=== PATIENT | female | born 1995 | race Caucasian/White ===

== ENCOUNTER 2016-03-17 23:00 | Emergency (ER) | payer OTHER ==
[2016-03-18] MEDS ORDERED: NS 0.9% 1000 ML* 1,000 ML IV ONE (00:04)
[2016-03-18] MEDS ORDERED: Ondansetron INJ* 2 MG/ML VIAL IV ONE (00:04)
[2016-03-18] MEDS ORDERED: Morphine INJ* 4 MG/ML 1 ML CARPUJECT IV ONE (00:04)
[2016-03-18] MEDS ORDERED: Acetaminophen TAB* 325 MG PO ONE (00:06)
[2016-03-18 00:30] LABS: Hematocrit 38 % (35-47); Hemoglobin 12.8 g/dl (12.0-16.0); Mean Corpuscular HGB Conc 34 g/dl (31-36); Mean Corpuscular Hemoglobin 30 pg (27-31); Mean Corpuscular Volume 87 fL (80-97); Mean Platelet Volume 10 um3 (7.4-10.4); Red Blood Count 4.36 10^6/ul (4.0-5.4); Red Cell Distribution Width 13 % (10.5-15); White Blood Count 14.6 10^3/ul (3.5-10.8)
[2016-03-18 00:35] LABS: ALT 9 U/L (7-52); AST 15 U/L (13-39); Albumin 4.3 g/dL (3.2-5.2); Alkaline Phosphatase 107 U/L (34-104); Anion Gap 8 mmol/L (2-11); BUN/Creatinine Ratio 13.4 (8-20); Blood Urea Nitrogen 11 mg/dL (6-24); CO2 Carbon Dioxide 23 mmol/L (22-32); Calcium 9.2 mg/dL (8.6-10.3); Chloride 100 mmol/L (101-111); EGFR African American 115.5 (>60); EGFR Non-African American 89.8 (>60); Globulin 3.4 g/dL (2-4); Glucose 104 mg/dL (70-100); Lipase < 10 U/L (11.0-82.0); Potassium 3.5 mmol/L (3.5-5.0); Sodium 131 mmol/L (133-145); Total Protein 7.7 g/dL (6.4-8.9)
[2016-03-18 00:36] LABS: Urine Bacteria 1+ (Absent); Urine Bilirubin Negative (Negative); Urine Glucose Negative (Negative); Urine Nitrite Positive (Negative)
[2016-03-18] MEDS ORDERED: Iodixanol* (CONTRAST) 320 MG/ML 100 ML SDV IV ONE (01:07)
[2016-03-18] MEDS ORDERED: Levofloxacin TAB* 500 MG PO ONE (03:02)
--- NOTE | 2016-03-18 03:09 | ED ---
Bry Wang Rebecca, scribed for Ayad Barnesuel on 03/17/16 at 2350 . Back Pain - HPI Summary HPI Summary: Pt is a 20 y/o F who presents to ED c/o bilateral flank pain wiht radiation to the abdomen. Pain began gradually 2 weeks ago and has been constant since onset. Pain is characterized as sharp and ranked 7/10. Sx aggravated and alleviated by nothing. Additionally c/o OCASIO, dizziness, malodorous urine, dysuria and fever. Recent Dx of UTI by Urgent Care, prescribed 14 days of Macrobid, which was completed. PMHx recurrent UTIs. No PSHx appy, cholecystectomy. - History of Current Complaint Chief Complaint: EDFlankPain Stated Complaint: PAINFUL URINATION/FLANK PAIN Time Seen by Provider: 03/17/16 23:37 Hx Obtained From: Patient Hx Last Menstrual Period: January 19 Onset/Duration: Gradual Onset, Lasting Weeks - 2 weeks ago Timing: Constant Back Pain Location: Is Discrete @ - bilateral flank, Radiates To - abdomen Severity Initially: Moderate Severity Currently: Moderate Pain Intensity: 7 Pain Scale Used: 0-10 Numeric Character: Sharp Aggravating Symptom(s): Nothing Alleviating Symptom(s): Nothing Associated Signs And Symptoms: Positive: Fever, Other - OCASIO, malodorous urine, dysuria, dizziness - Allergies/Home Medications Allergies/Adverse Reactions: Allergies Allergy/AdvReac Type Severity Reaction Status Date / Time Latex Allergy Rash Verified 02/10/16 18:40 Perfume Allergy Difficulty Verified 02/10/16 18:40 Breathing/Wheezing PMH/Surg Hx/FS Hx/Imm Hx Endocrine/Hematology History: Denies: Hx Diabetes, Hx Thyroid Disease Cardiovascular History: Denies: Hx Congestive Heart Failure, Hx Hypertension Respiratory History: Reports: Hx Asthma - Uses inhaler sometimes once a day, Hx Seasonal Allergies Denies: Hx Chronic Obstructive Pulmonary Disease (COPD) GI History: Reports: Hx Gastroesophageal Reflux Disease - Protonix daily Denies: Hx Ulcer History: Reports: Other Problems/Disorders - Chronic UTI Denies: Hx Renal Disease Psychiatric History: Reports: Hx Anxiety, Hx Eating Disorder - Reports hx anorexia, Hx Depression, Hx Inpatient Treatment, Hx Community Mental Health Tx Denies: Hx Attention Deficit Hyperactivity Disorder, Hx Panic Disorder, Hx Post Traumatic Stress Disorder, Hx Schizophrenia, Hx Bipolar Disorder, Hx Suicide Attempt, Hx of Violent Episodes Against Others, Hx Substance Abuse Infectious Disease History: No Infectious Disease History: Denies: Hx Clostridium Difficile, Hx Hepatitis, Hx Human Immunodeficiency Virus (HIV), Hx of Known/Suspected MRSA, Hx Shingles, Hx Tuberculosis, Hx Known/ Suspected VRE, Hx Known/Suspected VRSA, History Other Infectious Disease, Traveled Outside the [place] in Last 30 Days - Family History Known Family History: Negative: Cardiac Disease, Diabetes Family History: Family history of SLE, multiple sclerosis, temporal lobe epilepsy, Graves' disease, and trigeminal neuralgia in mother in addition to borderline personality disorder. Maternal grandmother suffers from depression, chronic fatigue syndrome, and Marvin's disease. - Social History Alcohol Use: Rare Substance Use Type: Reports: None Smoking Status (MU): Current Some Day Smoker Type: Cigarettes Amount Used/How Often: Stated she smokes approximately 5 cigarettes/month. Length of Time of Smoking/Using Tobacco: A few years Have You Smoked in the Last Year: Yes Review of Systems Positive: Fever Positive: dysuria, flank pain - bilateral flank pain with radiation to the abdomen, other - malodorous urine Neurological: Other - Dizziness Positive: Headache All Other Systems Reviewed And Are Negative: Yes Physical Exam Triage Information Reviewed: Yes Vital Signs On Initial Exam: Initial Vitals Temp Pulse Resp BP Pulse Ox 102.1 F 148 20 111/74 96 03/17/16 23:21 03/17/16 23:21 03/17/16 23:21 03/17/16 23:21 03/17/16 23:21 Vital Signs Reviewed: Yes Appearance: Positive: Well-Appearing, No Pain Distress Skin: Positive: Warm, Skin Color Reflects Adequate Perfusion, Dry Head/Face: Positive: Normal Head/Face Inspection Eyes: Positive: EOMI, BRANT ENT: Positive: Normal ENT inspection Neck: Positive: Supple, Nontender Respiratory/Lung Sounds: Positive: Clear to Auscultation, Breath Sounds Present Cardiovascular: Positive: Pulses are Symmetrical in both Upper and Lower Extremities, Tachycardia Abdomen Description: Positive: Soft. Negative: Nontender - Diffuse abdominal tenderness Bowel Sounds: Positive: Present Musculoskeletal: Positive: Normal, Strength/ROM Intact Neurological: Positive: Normal, Sensory/Motor Intact, Alert, Oriented to Person Place, Time Diagnostics - Vital Signs Vital Signs Temp Pulse Resp BP Pulse Ox 03/17/16 23:21 102.1 F 148 20 111/74 96 - Laboratory Result Diagrams: 03/17/16 00:00 03/17/16 00:00 Lab Statement: Any lab studies that have been ordered have been reviewed, and results considered in the medical decision making process. - Radiology CXR Xray Interpretation: No Acute Changes Radiology Interpretation Completed By: ED Physician - CT CT Abd/Pel CT Interpretation: No Acute Changes CT Interpretation Completed By: Radiologist - Ultrasound No standard instances Ultrasound Interpretation Completed By: Radiologist - Gallbladder US: Normal appearance of the liver, gallbladder, CBD and right kidney. Back Pain Course/Dx - Course Assessment/Plan: Pt is a 20 y/o F who presents to ED with a CC of bilateral flank pain for 2 weeks. Additionally c/o OCASIO, dizziness, malodorous urine, dysuria and fever. Recent Dx and treatment of UTI (2 weeks ago, just finished course of Macrobid). UA reveals 3+ WBC, 3+ RBC, positive H urine nitrate, 1+ urine blood. CXR, US gallbladder and CT Abd/Pel reveal normal results. Pt will be d/c to home with a dx of UTI and hyponatremia with a followup from PCP and a prescription for Levaquin. - Diagnoses Provider Diagnoses: UTI (urinary tract infection), Hyponatremia Discharge - Discharge Plan Condition: Stable Disposition: HOME Prescriptions: Ibuprofen TAB* [Motrin TAB* 600 MG] 600 mg PO Q8H PRN #20 tab PRN Reason: Pain Levofloxacin TAB* [Levaquin TAB*] 500 mg PO DAILY #7 tab Referrals: Stefania rCowder MD [Primary Care Provider] - The documentation as recorded by the Bry morley Rebecca accurately reflects the service I personally performed and the decisions made by Cameron moore Emmanuel. Addendum entered and electronically signed by Megan Mccracken PA 03/20/16 07: 44: ED Addendum Addendum: Patient diagnosed with UTI and placed on levaquin preliminary culture grew >100, 000 citrobacter freundii will wait for final sensitivity.
[2016-03-18 03:21] VITALS: BP 98/67
--- NOTE | 2016-03-18 08:04 | RAD ---
INDICATION: Right upper quadrant pain. COMPARISON: There are no prior studies available for comparison. TECHNIQUE: Multiple real-time images of the right upper quadrant were obtained. FINDINGS: The gallbladder appear normal. No gallbladder wall thickening or pericholecystic fluid is present. No intra or extrahepatic ductal distention is present. The common bile duct measured 0.3 cm in diameter. The liver is normal in size without significant focal abnormality. The pancreas is obscured by overlying bowel gas. The right kidney is normal in size without evidence for hydronephrosis. IMPRESSION: NEGATIVE EXAM.
--- NOTE | 2016-03-18 08:16 | RAD ---
INDICATION: Fever COMPARISON: None TECHNIQUE: PA and lateral views of the chest were obtained. FINDINGS: The heart and mediastinum are normal in size and contour. The lungs are grossly clear. There is no evidence of large pleural effusion. Visualized bones are normal for the patient's age. There is no radiographic evidence of free air beneath the diaphragm IMPRESSION: No radiographic evidence of acute cardiopulmonary disease.
--- NOTE | 2016-03-18 08:26 | RAD ---
CLINICAL HISTORY: Bilateral flank pain and dysuria COMPARISON: Similar CT examination dated December 26, 2014 TECHNIQUE: Contrast enhanced CT examination of the abdomen and pelvis from the lung bases through the initial tuberosities. The patient received 90 mL Visipaque 320 intravenously prior to imaging.The patient received oral contrast as well prior to imaging. FINDINGS: VISUALIZED LUNG BASES: The visualized lung bases are grossly clear. There is no pleural effusion. ABDOMEN AND PELVIS: The liver, spleen, pancreas and adrenal glands are grossly normal in appearance. The gallbladder is normal. The kidneys are normal in appearance without focal mass, calcification or signs of hydronephrosis. The urinary bladder exhibits mild wall thickening up to 7 mm but is also mostly decompressed. No oral contrast has only progressed as far as the distal small bowel which limits evaluation of the distal most portion of the small bowel and the colon. The small and large bowel are not distended. The patient's normal appendix with air in the lumen is identified in the right lower quadrant (coronal image 41). There is no gross retroperitoneal or mesenteric lymphadenopathy. The pelvic viscera is normal in appearance. The abdominal aorta and iliac arteries are normal in course and diameter. There are no sinister bone lesions. IMPRESSION: 1. Questionable appearance of circumferential urinary bladder wall thickening which can be seen in the setting of cystitis. Alternatively, the bladder is incompletely distended and this appearance may simply be the consequence of underdistention. Ultrasound of the urine filled urinary bladder may help better characterize this finding. 2. Otherwise no acute abnormalities of the abdomen or pelvis.
== END 2016-03-18 03:20 | disposition home or self-care (01) ==
LOC: ED 23:00
DX: N39.0 Urinary tract infection, site not specified (principal); E87.1 Hypo-osmolality and hyponatremia; R50.9 Fever, unspecified; R51 Headache; R30.0 Dysuria; Z72.0 Tobacco use; R42 Dizziness and giddiness
CPT/HCPCS: 36415; 71020; 74177; 76705; 80053; 81003; 81015; 83605; 83690; 84702; 85025; 85610; 85730; 87040; 87077; 87086; 87186; 96361; 96374; 96375; 99282; A9270-GY; J2270; J2405; Q9967

== ENCOUNTER 2016-07-23 20:30 | Emergency (ER) | payer OTHER ==
--- NOTE | 2016-07-23 20:43 | UC ---
Complaint Female HPI - HPI Summary HPI Summary: The patient comes in today for: 1. Urinary frequency, strong urine odor (not new, but worse than before): Onset: A couple days ago. Palliative/provocative: Drinking more fluids tends to help. Quality: Dysuria: not present. Region: Severity: 0/10 Time: Constant. Associated symptoms: Cold chills: Present Hobson aches: Present Temperature: 102.3 taken 1-2 hours ago. Urinary urgency: Present. Last UTI treatment: 2-3 months ago. * - History Of Current Complaint Stated Complaint: FEVER URINARY ISSUE Time Seen by Provider: 07/23/16 20:35 Hx Obtained From: Patient Hx Last Menstrual Period: January 19 - Allergies/Home Medications Allergies/Adverse Reactions: Allergies Allergy/AdvReac Type Severity Reaction Status Date / Time Latex Allergy Rash Verified 07/23/16 21:00 Perfume Allergy Difficulty Verified 07/23/16 21:00 Breathing/Wheezing PMH/Surg Hx/FS Hx/Imm Hx Previously Healthy: No Other Endocrine History: No diabetes, or thyroid disease. Other Cardiovascular History: No heart disease or HTN Respiratory History: Asthma Other Respiratory History: No P.E. GI/ History: Gastroesophageal Reflux Other GI/ History: Gastric ulcers about "years and years ago"or kidney failure Other Neurological History: No strokes or seizures. Psychological History: Anxiety, Other - "mood disorder." Other Psychological History: mood disorder Other Cancer History: No cancers Other History Of: Negative For: HIV, Hepatitis B, Hepatitis C, Anticoagulant Therapy - Surgical History Surgical History: None - Family History Known Family History: Positive: Diabetes Negative: Cardiac Disease, Hypertension Family History: Family history of SLE, multiple sclerosis, temporal lobe epilepsy, Graves' disease, and trigeminal neuralgia in mother in addition to borderline personality disorder. Maternal grandmother suffers from depression, chronic fatigue syndrome, and Marvin's disease. - Social History Occupation: Unemployed Lives: Alone Alcohol Use: Rare Substance Use Type: None Smoking Status (MU): Current Some Day Smoker Type: Cigarettes Amount Used/How Often: Stated she smokes approximately 5 cigarettes/month. Length of Time of Smoking/Using Tobacco: A few years Have You Smoked in the Last Year: Yes Household Exposure Type: Cigarettes - Immunization History Most Recent Influenza Vaccination: 2016 Most Recent Tetanus Shot: UTD Most Recent Pneumonia Vaccination: as Vaccination Up to Date: Yes Review of Systems Constitutional: Fever Skin: Negative Eyes: Negative ENT: Negative Respiratory: Negative Cardiovascular: Negative Gastrointestinal: Negative Genitourinary: Frequency, Urgency All Other Systems Reviewed And Are Negative: Yes Physical Exam Triage Information Reviewed: Yes Appearance: Well-Appearing, No Pain Distress, Well-Nourished, Other: Vital Signs Reviewed: Yes Eyes: Positive: Conjunctiva Clear. Negative: Discharge ENT: Positive: Hearing grossly normal. Negative: Pharyngeal erythema, Nasal congestion, Nasal drainage, TM bulging, TM dull, TM red, Tonsillar swelling, Tonsillar exudate Dental: Negative: Gross Decay/Caries @, Dental Fracture @ Neck: Positive: Supple, Nontender, No Lymphadenopathy. Negative: Nuchal Rigidity Respiratory: Positive: Chest non-tender, Lungs clear, No respiratory distress, No accessory muscle use. Negative: Crackles, Wheezing Cardiovascular: Positive: RRR, No Murmur Abdomen Description: Positive: No Organomegaly, Soft, Other: - The abdominal exam was difficult to assess. She stated that she was ticklish, but during the exam she would grimace like the exam hurt. But, when asked if she was in pain while grimacing, she would say that she would not be in pain. But the tender areas were not consistent. She did have some tenderness of the RLQ.. Negative : Nontender, Distended, Guarding Musculoskeletal: Positive: Strength Intact, ROM Intact, No Edema Neurological: Positive: Alert, Muscle Tone Normal Psychological: Positive: Age Appropriate Behavior, Consolable Skin: Negative: rashes, breakdown Diagnostics - Laboratory Diagnostic Studies Completed/Ordered: Urine screen: Specific gravity: 1.030. WBC: 1+. Nitrite: (-). Blood: 3+. Protein: 2+. Glucose: (-) Complaint Female Dx - Course Course Of Treatment: The patient was told that her urine was not an obvious suggestion of a UTI. It could be consistent, but it was not an obvious suggestion of one. The patient was also told that I did not know for sure what was causing her abdominal pain. The patient was told that there are many causes of abdominal pain--some benign to some which are. life-threatening. And the life-threatening causes may present with minimal symptoms, atypical symptoms,. or even be present with no symptoms. Due to this, it is necessary for us to rely on testing (blood, urine. and imaging studies) with their timely results to help us determine the seriousness of what the patient. may have. The patient was told that we are not set up to offer the broad range of tests for abdominal pain. nor get their timely results that are usually used for the assessment of abdominal pain. The patient was told of the diagnostic and treatment options that we can offer. Initially, she did not want to go to the ER, but later stated that she did. - Differential Dx/Diagnosis Differential Diagnosis/HQI/PQRI: Appendicitis Provider Diagnoses: ABdominal pain Discharge - Discharge Plan Condition: Stable Disposition: AGAINST MEDICAL ADVICE Referrals: Stefania Crowder MD [Primary Care Provider] - Additional Instructions: The patient is going [place] the [place] [facility] [place].
[2016-07-23] MEDS ORDERED: Acetaminophen TAB* 325 MG PO ONE (21:29)
[2016-07-23 21:40] VITALS: BP 131/68
== END 2016-07-23 21:25 | disposition left against medical advice (07) ==
LOC: UCEAST 20:30
DX: R10.9 Unspecified abdominal pain (principal); K21.9 Gastro-esophageal reflux disease without esophagitis; F41.9 Anxiety disorder, unspecified; F39 Unspecified mood [affective] disorder; Z91.040 Latex allergy status; Z91.048 Other nonmedicinal substance allergy status
CPT/HCPCS: 81003; 87086; 99212; G0463

== ENCOUNTER 2016-07-23 21:54 | Emergency (ER) | payer OTHER ==
[2016-07-23 22:34] VITALS: BP 97/63
--- NOTE | 2016-07-23 23:19 | ED ---
Abdominal Pain/Female - HPI Summary HPI Summary: Patient is sent here by for diffuse abdominal pain. She has anorexia nervosa and constipation with a psych history. She notes to not eating for several days then will often eat a large meal after then go several days again without eating. When she does eat, she states it is usually very unhealthy and will eat peanut butter and bread. She states she will not have a bowel movement for several days and has been seen here for that issue. She notes to constant UTI's and other infections. It was explained to patient the reason she is having the infections is most likely d/t immunosuppression from not having a consistent diet. Today at , her UA was negative for a UTI, but she went to for CC of urgency, frequency and burning with bilateral back pain. Denies history of kidney stones. She states she rarely drinks water or other fluids and in general uses the bathroom very little. She has a history of anxiety and depression. She is currently unemployed. She notes to "vaping" which causes some SOB. - History of Current Complaint Chief Complaint: EDGeneral Stated Complaint: ABD PAIN,KIDNEY PAIN Time Seen by Provider: 07/23/16 22:08 Hx Obtained From: Patient Hx Last Menstrual Period: January 19 ?: No Onset/Duration: Gradual Onset Timing: Intermittent Episode Lasting Severity Initially: Mild Severity Currently: Mild Pain Intensity: 5 Pain Scale Used: 0-10 Numeric Location: Diffuse Radiates: No Character: Dull Aggravating Factor(s): Nothing Alleviating Factor(s): Nothing Associated Signs and Symptoms: Positive: Fever, Urinary Symptoms Allergies/Adverse Reactions: Allergies Allergy/AdvReac Type Severity Reaction Status Date / Time Latex Allergy Rash Verified 07/23/16 21:55 Perfume Allergy Difficulty Verified 07/23/16 21:55 Breathing/Wheezing PMH/Surg Hx/FS Hx/Imm Hx Previously Healthy: Yes Endocrine/Hematology History: Denies: Hx Anticoagulant Therapy, Hx Diabetes, Hx Thyroid Disease Cardiovascular History: Denies: Hx Congestive Heart Failure, Hx Hypertension Respiratory History: Reports: Hx Asthma - Uses inhaler sometimes once a day, Hx Seasonal Allergies Denies: Hx Chronic Obstructive Pulmonary Disease (COPD) GI History: Reports: Hx Gastroesophageal Reflux Disease - Protonix daily Denies: Hx Ulcer History: Reports: Other Problems/Disorders - Chronic UTI Denies: Hx Renal Disease Psychiatric History: Reports: Hx Anxiety, Hx Eating Disorder - Reports hx anorexia, Hx Depression, Hx Inpatient Treatment, Hx Community Mental Health Tx Denies: Hx Attention Deficit Hyperactivity Disorder, Hx Panic Disorder, Hx Post Traumatic Stress Disorder, Hx Schizophrenia, Hx Bipolar Disorder, Hx Suicide Attempt, Hx of Violent Episodes Against Others, Hx Substance Abuse - Immunization History Hx Pertussis Vaccination: No Immunizations Up to Date: Unable to Obtain/Confirm Infectious Disease History: No Infectious Disease History: Denies: Hx Clostridium Difficile, Hx Hepatitis, Hx Human Immunodeficiency Virus (HIV), Hx of Known/Suspected MRSA, Hx Shingles, Hx Tuberculosis, Hx Known/ Suspected VRE, Hx Known/Suspected VRSA, History Other Infectious Disease, Traveled Outside the [place] in Last 30 Days - Family History Known Family History: Positive: Diabetes Negative: Cardiac Disease, Hypertension Family History: Family history of SLE, multiple sclerosis, temporal lobe epilepsy, Graves' disease, and trigeminal neuralgia in mother in addition to borderline personality disorder. Maternal grandmother suffers from depression, chronic fatigue syndrome, and Marvin's disease. - Social History Occupation: Unemployed Lives: With Family Alcohol Use: Rare Hx Substance Use: No Substance Use Type: Reports: None Hx Tobacco Use: Yes Smoking Status (MU): Current Some Day Smoker Type: Cigarettes Amount Used/How Often: Stated she smokes approximately 5 cigarettes/month. Length of Time of Smoking/Using Tobacco: A few years Have You Smoked in the Last Year: Yes Review of Systems Positive: Fever Eyes: Negative Cardiovascular: Negative Respiratory: Negative Positive: Abdominal Pain Positive: burning, dysuria, frequency, hematuria, urgency Musculoskeletal: Negative Neurological: Negative Positive: Anxious, Depressed All Other Systems Reviewed And Are Negative: Yes Physical Exam Triage Information Reviewed: Yes Vital Signs On Initial Exam: Initial Vitals Temp Pulse Resp BP Pulse Ox 99.6 F 123 18 118/82 98 07/23/16 21:56 07/23/16 21:56 07/23/16 21:56 07/23/16 21:56 07/23/16 21:56 Vital Signs Reviewed: Yes Appearance: Positive: Well-Appearing, Well-Nourished Skin: Positive: Warm, Skin Color Reflects Adequate Perfusion Eyes: Positive: EOMI, BRANT, Conjunctiva Clear Neck: Positive: Supple, No Lymphadenopathy Respiratory/Lung Sounds: Positive: Clear to Auscultation, Breath Sounds Present Cardiovascular: Positive: RRR, Pulses are Symmetrical in both Upper and Lower Extremities Musculoskeletal: Positive: Normal, Strength/ROM Intact Neurological: Positive: Alert, Oriented to Person Place, Time, Speech Normal Psychiatric: Positive: Normal AVPU Assessment: Alert - Francisco Coma Scale Coma Scale Total: 15 Diagnostics - Vital Signs Vital Signs Temp Pulse Resp BP Pulse Ox 07/23/16 22:30 110 25 97/63 96 07/23/16 22:28 108 95 07/23/16 22:26 122/77 07/23/16 21:56 99.6 F 123 18 118/82 98 - Laboratory Lab Statement: Any lab studies that have been ordered have been reviewed, and results considered in the medical decision making process. Abdominal Pain Fem Course/Dx - Course Course Of Treatment: Provider discussed in length the manifestations of an eating disorder. After a lengthy discussion, patient decided to not get blood work or CT scan based on the information. Pain in the abdomen is diffuse, began 2 days. She states the pain began when she stopped eating. She also has not had a BM for many days, although she doesn't recall how long. She prefers to follow up with GI, her PCP and return to the eating disorder clinic in [place]. She also agrees to return to her psychiatrist. She will continue her medications as prescribed, but is encouraged to supplement with gatorade and any other nutrients she is willing to obtain. Patient agrees and is OK for discharge. Return precautions given. - Diagnoses Differential Diagnosis: Positive: Bowel Obstruction, Constipation, Ovarian Cyst Provider Diagnoses: Constipation, AN (anorexia nervosa) Discharge - Discharge Plan Condition: Stable Disposition: HOME Patient Education Materials: Constipation (ED), Anorexia Nervosa (ED) Referrals: Stefania Crowder MD [Primary Care Provider] - Miguel A Florentino MD [Medical Doctor] - Additional Instructions: Follow up with PCP Follow up with Dr. Florentino Drink plenty of Gatorade and eat consistent meals
== END 2016-07-23 23:39 | disposition home or self-care (01) ==
LOC: ED 21:54
DX: K59.00 Constipation, unspecified (principal); F50.00 Anorexia nervosa, unspecified; R10.9 Unspecified abdominal pain; R30.0 Dysuria; R31.9 Hematuria, unspecified; F32.9 Major depressive disorder, single episode, unspecified
CPT/HCPCS: 93005; 99282

== ENCOUNTER 2016-08-09 14:06 | Emergency (ER) | payer OTHER ==
[2016-08-09 14:13] VITALS: BP 109/69
--- NOTE | 2016-08-09 14:27 | UC ---
Ear Complaint HPI - HPI Summary HPI Summary: LEFT EAR PAIN X 1 WEEK NO FEVER, NO CHILLS, NO COLD SX, + PAIN IN BOTH JAWS WELL FOR MONTHS - History of Current Complaint Chief Complaint: UCEar Stated Complaint: EAR COMPLAINT Time Seen by Provider: 08/09/16 14:18 Hx Obtained From: Patient Hx Last Menstrual Period: 07/08 Onset/Duration: Gradual Onset, Lasting Days - 7, Still Present Severity Initially: Moderate Severity Currently: Moderate Aggravating Factors: Cold Alleviating Factors: Nothing Associated Signs/Symptoms: Positive: Hearing Loss. Negative: Discharge, Foreign Body Sensation, Trauma to Ear, Swelling @, URI Symptoms - Allergies/Home Medications Allergies/Adverse Reactions: Allergies Allergy/AdvReac Type Severity Reaction Status Date / Time Latex Allergy Rash Verified 07/23/16 21:55 Perfume Allergy Difficulty Verified 07/23/16 21:55 Breathing/Wheezing PMH/Surg Hx/FS Hx/Imm Hx Previously Healthy: Yes Other History Of: Negative For: HIV, Hepatitis B, Hepatitis C, Anticoagulant Therapy - Surgical History Surgical History: None - Family History Known Family History: Positive: Diabetes Negative: Cardiac Disease, Hypertension Family History: Family history of SLE, multiple sclerosis, temporal lobe epilepsy, Graves' disease, and trigeminal neuralgia in mother in addition to borderline personality disorder. Maternal grandmother suffers from depression, chronic fatigue syndrome, and Marvin's disease. - Social History Alcohol Use: Rare Substance Use Type: None Smoking Status (MU): Current Some Day Smoker Type: Cigarettes Amount Used/How Often: Stated she smokes approximately 5 cigarettes/month. Length of Time of Smoking/Using Tobacco: A few years Have You Smoked in the Last Year: Yes Household Exposure Type: Cigarettes - Immunization History Most Recent Influenza Vaccination: 2016 Most Recent Tetanus Shot: UTD Most Recent Pneumonia Vaccination: as Vaccination Up to Date: Yes Review of Systems Constitutional: Negative Skin: Negative Eyes: Negative ENT: Ear Ache Respiratory: Negative Cardiovascular: Negative Gastrointestinal: Negative All Other Systems Reviewed And Are Negative: Yes Physical Exam Triage Information Reviewed: Yes Appearance: Well-Appearing, No Pain Distress, Well-Nourished Vital Signs: Initial Vital Signs Temp 99.6 F 08/09/16 14:09 Pulse 100 08/09/16 14:09 Resp 18 08/09/16 14:09 BP 109/69 08/09/16 14:09 Pulse Ox 97 08/09/16 14:09 Vital Signs Reviewed: Yes Eyes: Positive: Conjunctiva Clear ENT Exam: Normal ENT: Positive: Normal ENT inspection, Pharynx normal, TM bulging - LEFT TM, TM dull - LEFT TM, TM red - LEFT TM Neck exam: Normal Neck: Positive: Supple, Nontender, Other: - + TMJ TENDERNESS BILATERALY Cardiovascular: Positive: RRR Skin Exam: Normal Ear Complaint Course/Dx - Differential Dx/Diagnosis Provider Diagnoses: OTITIS MEDIA LEFT EAR. TMJ BILATERAL Discharge - Discharge Plan Condition: Stable Disposition: HOME Prescriptions: Amoxicillin (*) [Amoxicillin 875 MG (*)] 875 mg PO BID #20 tab Fluticasone NASAL * [Flonase *] 2 spray BOTH NARES DAILY #1 spray Patient Education Materials: Otitis Media (ED), Temporomandibular Disorder (ED) Referrals: Stefania Crowder MD [Primary Care Provider] - 7 Days
== END 2016-08-09 14:31 | disposition home or self-care (01) ==
LOC: UCEAST 14:06
DX: H66.92 Otitis media, unspecified, left ear (principal); M26.603 Bilateral temporomandibular joint disorder, unspecified; Z91.040 Latex allergy status; Z72.0 Tobacco use
CPT/HCPCS: 99212; G0463

== ENCOUNTER 2016-11-25 16:02 | Emergency (ER) | payer OTHER ==
[2016-11-25 16:27] VITALS: BP 101/66
--- NOTE | 2016-11-25 16:55 | ED ---
GI/ HPI - HPI Summary HPI Summary: 21F presents with vomiting this morning. She says she was very anxious and that she threw up so work would not let her come without a note so she came for a note. States she is not taking any medication for anxiety. no si/hi. is following up with someone for this. no abdominal pain. nausea and vomiting resolved currently. no fevers. no ETOH. - History of Current Complaint Chief Complaint: UCGeneralIllness Time Seen by Provider: 11/25/16 16:48 Stated Complaint: VOMITING,WORK NOTE Hx Last Menstrual Period: 1 month ago, unsure of date - Additional Pertinent History Primary Care Physician: [id number] - Allergy/Home Medications Allergies/Adverse Reactions: Allergies Allergy/AdvReac Type Severity Reaction Status Date / Time Latex Allergy Rash Verified 11/25/16 16:28 Perfume Allergy Difficulty Verified 11/25/16 16:28 Breathing/Wheezing PMH/Surg Hx/FS Hx/Imm Hx Endocrine/Hematology History: Denies: Hx Anticoagulant Therapy, Hx Diabetes, Hx Thyroid Disease Cardiovascular History: Denies: Hx Congestive Heart Failure, Hx Hypertension Respiratory History: Reports: Hx Asthma - Uses inhaler sometimes once a day, Hx Seasonal Allergies Denies: Hx Chronic Obstructive Pulmonary Disease (COPD) GI History: Reports: Hx Gastroesophageal Reflux Disease - Protonix daily Denies: Hx Ulcer History: Reports: Other Problems/Disorders - Chronic UTI Denies: Hx Renal Disease Psychiatric History: Reports: Hx Anxiety, Hx Eating Disorder - Reports hx anorexia, Hx Depression, Hx Inpatient Treatment, Hx Community Mental Health Tx Denies: Hx Attention Deficit Hyperactivity Disorder, Hx Panic Disorder, Hx Post Traumatic Stress Disorder, Hx Schizophrenia, Hx Bipolar Disorder, Hx Suicide Attempt, Hx of Violent Episodes Against Others, Hx Substance Abuse Infectious Disease History: No Infectious Disease History: Denies: Hx Clostridium Difficile, Hx Hepatitis, Hx Human Immunodeficiency Virus (HIV), Hx of Known/Suspected MRSA, Hx Shingles, Hx Tuberculosis, Hx Known/ Suspected VRE, Hx Known/Suspected VRSA, History Other Infectious Disease, Traveled Outside the [place] in Last 30 Days - Family History Known Family History: Positive: Diabetes Negative: Cardiac Disease, Hypertension Family History: Family history of SLE, multiple sclerosis, temporal lobe epilepsy, Graves' disease, and trigeminal neuralgia in mother in addition to borderline personality disorder. Maternal grandmother suffers from depression, chronic fatigue syndrome, and Marvin's disease. - Social History Alcohol Use: Rare Hx Substance Use: No Substance Use Type: Reports: None Hx Tobacco Use: Yes Smoking Status (MU): Current Some Day Smoker Type: Cigarettes Amount Used/How Often: about 1/2 pack every few days Length of Time of Smoking/Using Tobacco: A few years Have You Smoked in the Last Year: Yes Review of Systems Negative: Fever Negative: Chest Pain Negative: Shortness Of Breath Positive: Vomiting, Nausea. Negative: Abdominal Pain Positive: Anxious All Other Systems Reviewed And Are Negative: Yes Physical Exam Triage Information Reviewed: Yes Vital Signs On Initial Exam: Initial Vitals Temp Pulse Resp BP Pulse Ox 98.2 F 77 16 101/66 100 11/25/16 16:22 11/25/16 16:22 11/25/16 16:22 11/25/16 16:22 11/25/16 16:22 Vital Signs Reviewed: Yes Appearance: Positive: Well-Appearing Skin: Positive: Warm, Dry Head/Face: Positive: Normal Head/Face Inspection Eyes: Positive: Normal, EOMI, BRANT, Conjunctiva Clear ENT: Positive: Normal ENT inspection, Pharynx normal, TMs normal Respiratory/Lung Sounds: Positive: Clear to Auscultation, Breath Sounds Present Cardiovascular: Positive: Normal, RRR Abdomen Description: Positive: Nontender, Soft Bowel Sounds: Positive: Present Musculoskeletal: Positive: Normal Neurological: Positive: Normal Psychiatric: Positive: Normal Diagnostics - Vital Signs Vital Signs Temp Pulse Resp BP Pulse Ox 11/25/16 16:22 98.2 F 77 16 101/66 100 - Laboratory Lab Statement: Any lab studies that have been ordered have been reviewed, and results considered in the medical decision making process. GIGU Course/Dx - Course Course Of Treatment: 21F presents with vomiting this morning. She says she was very anxious and that she threw up so work would not let her come without a note so she came for a note. States she is not taking any medication for anxiety. no si/hi. is following up with someone for this. no abdominal pain. nausea and vomiting resolved currently. no fevers. no ETOH. nontender abdomen. gave zofran. advised to take bendaryl as says can not sleep due to anxiety. medications reviewed. patient understands and agrees with plan. - Diagnoses Differential Diagnoses - Female: Gastroenteritis (Viral), Gastroenteritis ( Bacterial), Vomiting Provider Diagnoses: Vomiting Discharge - Discharge Plan Condition: Good Disposition: HOME Prescriptions: Ondansetron ODT TAB* [Zofran 4 MG Odt TAB*] 4 mg PO Q6H PRN #8 tab.odt PRN Reason: Nausea Patient Education Materials: Acute Nausea and Vomiting (ED) Forms: *Work Release Referrals: Stefania Crowder MD [Primary Care Provider] - Additional Instructions: Take zofran every 6 hours for nausea Take Benadryl every 6 hours for anxiety Return to ED if develop any new or worsening symptoms
== END 2016-11-25 17:02 | disposition home or self-care (01) ==
LOC: UCEAST 16:02
DX: R11.10 Vomiting, unspecified (principal); J45.909 Unspecified asthma, uncomplicated; K21.9 Gastro-esophageal reflux disease without esophagitis; Z87.440 Personal history of urinary (tract) infections; F41.9 Anxiety disorder, unspecified; F32.9 Major depressive disorder, single episode, unspecified; Z72.0 Tobacco use
CPT/HCPCS: 99212; G0463

== ENCOUNTER → 2016-11-26 12:00 | Emergency (ER) | payer OTHER ==
[~2016-11-26 12:00] MED LIST: Acetaminophen TAB* 325 MG PO PRN; Al Hydrox/Mg Hydrox/Simet LIQ* 30 ML UDC PO PRN; Nicotine GUM* 2 MG PO PRN; Nicotine Inhaler* 10 MG AMP INH PRN; Nicotine PATCH 21 MG/24 HR* PATCH TRANSDERM SCH; Nicotine Patch Removal NOTE PATCH OFF SCH; Vitamin THERAPEUTIC TAB PO SCH; traZODone TAB* 50 MG TAB PO SCH
--- NOTE | 2016-11-26 13:14 | ED ---
Psychiatric Complaint - HPI Summary HPI Summary: 21F presents with increase anxiety. She states she wants to . She states this is due to work. work has caused increase stress. She has history of suicide attempts but has never followed through. She is not on any medication for psych reasons which she states is part of her problem. She states her anxiety is causing her to have nausea and vomiting which I saw her in urgent care yesterday when she denied any si/hi at that time. she states she would take pills to hurt herself. - History Of Current Complaint Chief Complaint: EDMentalHealth Time Seen by Provider: 11/26/16 12:26 Hx Last Menstrual Period: 1 month ago, unsure of date - Allergies/Home Medications Allergies/Adverse Reactions: Allergies Allergy/AdvReac Type Severity Reaction Status Date / Time Latex Allergy Rash Verified 11/26/16 21:57 Perfume Allergy Difficulty Verified 11/26/16 21:57 Breathing/Wheezing PMH/Surg Hx/FS Hx/Imm Hx Endocrine/Hematology History: Denies: Hx Anticoagulant Therapy, Hx Diabetes, Hx Thyroid Disease Cardiovascular History: Denies: Hx Congestive Heart Failure, Hx Hypertension Respiratory History: Reports: Hx Asthma - Uses inhaler sometimes once a day, Hx Seasonal Allergies Denies: Hx Chronic Obstructive Pulmonary Disease (COPD) GI History: Reports: Hx Gastroesophageal Reflux Disease - Protonix daily Denies: Hx Ulcer History: Reports: Other Problems/Disorders - Chronic UTI Denies: Hx Renal Disease Psychiatric History: Reports: Hx Anxiety, Hx Eating Disorder - Reports hx anorexia, Hx Depression, Hx Inpatient Treatment, Hx Community Mental Health Tx Denies: Hx Attention Deficit Hyperactivity Disorder, Hx Panic Disorder, Hx Post Traumatic Stress Disorder, Hx Schizophrenia, Hx Bipolar Disorder, Hx Suicide Attempt, Hx of Violent Episodes Against Others, Hx Substance Abuse Infectious Disease History: No Infectious Disease History: Denies: Hx Clostridium Difficile, Hx Hepatitis, Hx Human Immunodeficiency Virus (HIV), Hx of Known/Suspected MRSA, Hx Shingles, Hx Tuberculosis, Hx Known/ Suspected VRE, Hx Known/Suspected VRSA, History Other Infectious Disease, Traveled Outside the [place] in Last 30 Days - Family History Known Family History: Positive: Diabetes Negative: Cardiac Disease, Hypertension Family History: Family history of SLE, multiple sclerosis, temporal lobe epilepsy, Graves' disease, and trigeminal neuralgia in mother in addition to borderline personality disorder. Maternal grandmother suffers from depression, chronic fatigue syndrome, and Marvin's disease. - Social History Alcohol Use: Rare Hx Substance Use: No Substance Use Type: Reports: None Hx Tobacco Use: Yes Smoking Status (MU): Current Some Day Smoker Type: Cigarettes Amount Used/How Often: about 1/2 pack every few days Length of Time of Smoking/Using Tobacco: A few years Have You Smoked in the Last Year: Yes Review of Systems Negative: Fever Negative: Chest Pain Negative: Shortness Of Breath Positive: Anxious All Other Systems Reviewed And Are Negative: Yes Physical Exam Triage Information Reviewed: Yes Vital Signs On Initial Exam: Initial Vitals Temp Pulse Resp BP Pulse Ox 97.3 F 59 20 122/72 99 11/26/16 12:15 11/26/16 12:15 11/26/16 12:15 11/26/16 12:15 11/26/16 12:15 Vital Signs Reviewed: Yes Appearance: Positive: Well-Appearing Skin: Positive: Warm, Dry Head/Face: Positive: Normal Head/Face Inspection Respiratory/Lung Sounds: Positive: Clear to Auscultation, Breath Sounds Present Cardiovascular: Positive: Normal, RRR Abdomen Description: Positive: Nontender, Soft Bowel Sounds: Positive: Present Diagnostics - Vital Signs Vital Signs Temp Pulse Resp BP Pulse Ox 11/26/16 12:15 97.3 F 59 20 122/72 99 - Laboratory Result Diagrams: 11/26/16 13:04 11/26/16 13:04 Lab Statement: Any lab studies that have been ordered have been reviewed, and results considered in the medical decision making process. Course/Dx - Course Course Of Treatment: 21F presents with increase anxiety. She states she wants to . She states this is due to work. work has caused increase stress. She has history of suicide attempts but has never followed through. She is not on any medication for psych reasons which she states is part of her problem. She states her anxiety is causing her to have nausea and vomiting which I saw her in urgent care yesterday when she denied any si/hi at that time. she states she would take pills to hurt herself. medically clear for [facility]. is going to admit patient. - Differential Dx/Clinical Impression Differential Diagnosis/HQI/PQRI: Positive: Anxiety, Depression, Suicidal Ideation Provider Diagnosis: Depression Discharge - Discharge Plan Condition: Stable Disposition: [facility]IATRIC FACILITY-[facility] [place] Referrals: Stefania Crowder MD [Primary Care Provider] -
[2016-11-26 13:15] LABS: Hematocrit 40 % (35-47); Hemoglobin 13.3 g/dl (12.0-16.0); Mean Corpuscular HGB Conc 33 g/dl (31-36); Mean Corpuscular Hemoglobin 29 pg (27-31); Mean Corpuscular Volume 88 fL (80-97); Mean Platelet Volume 9 um3 (7.4-10.4); Red Blood Count 4.53 10^6/ul (4.0-5.4); Red Cell Distribution Width 13 % (10.5-15); White Blood Count 10.1 10^3/ul (3.5-10.8)
[2016-11-26 13:29] LABS: ALT 11 U/L (7-52); AST 18 U/L (13-39); Albumin 4.4 g/dL (3.2-5.2); Alkaline Phosphatase 104 U/L (34-104); Anion Gap 8 mmol/L (2-11); BUN/Creatinine Ratio 15.4 (8-20); Blood Urea Nitrogen 10 mg/dL (6-24); CO2 Carbon Dioxide 24 mmol/L (22-32); Calcium 9.5 mg/dL (8.6-10.3); Chloride 106 mmol/L (101-111); EGFR African American 149.4 (>60); EGFR Non-African American 116.2 (>60); Globulin 3.2 g/dL (2-4); Glucose 85 mg/dL (70-100); Potassium 3.7 mmol/L (3.5-5.0); Sodium 138 mmol/L (133-145); Total Protein 7.6 g/dL (6.4-8.9)
[2016-11-26 13:29] LABS: Urine Bacteria 1+ (Absent); Urine Bilirubin Negative (Negative); Urine Glucose Negative (Negative); Urine Nitrite Negative (Negative)
[2016-11-26 13:32] LABS: Benzodiazepine Urine Screen None Detected (None Detect)
[2016-11-26 13:52] LABS: Acetaminophen < 15 mcg/mL; Alcohol < 10 mg/dL (<10); Salicylate < 2.50 mg/dL (<30)
[2016-11-26 14:07] LABS: TSH (Thyroid Stimulating Horm) 0.84 mcIU/mL (0.34-5.60)
[2016-11-26 15:04] VITALS: BP 117/57
[2016-11-26 17:25] LABS: Cholesterol 185 mg/dL; HDL Cholesterol 59.5 mg/dL; LDL Cholesterol 113 mg/dL; Triglycerides 64 mg/dL
== END ==
LOC: ED 12:00
DX: F32.9 Major depressive disorder, single episode, unspecified (principal); F17.210 Nicotine dependence, cigarettes, uncomplicated; F41.9 Anxiety disorder, unspecified
CPT/HCPCS: 36415; 80053; 80061; 80307; 80320; 80329; 81003; 81015; 83036; 84443; 84702; 85025; 87086; 99284; G0480

== ENCOUNTER 2016-11-26 19:00 | Inpatient (IN) | payer MEDICAID, OTHER ==
[2016-11-27] MEDS ORDERED: Pneumococcal *Vac Polyvalent 0.5 ML VIAL IM ONE (09:00)
[2016-11-27] MEDS ORDERED: Mouth Piece, Nicotine* 1 EACH CARTRIDGE INH PRN (12:21)
[2016-11-27] MEDS ORDERED: Nicotine Inhaler* 10 MG AMP INH PRN (12:22)
[2016-11-27] MEDS ORDERED: Nicotine PATCH 21 MG/24 HR* PATCH TRANSDERM SCH (13:00)
[2016-11-27] MEDS ORDERED: Al Hydrox/Mg Hydrox/Simet LIQ* 30 ML UDC PO PRN (13:14)
[2016-11-27] MEDS ORDERED: Ondansetron TAB* 4 MG PO PRN (13:54)
[2016-11-27] MEDS: Nicotine GUM* 2 MG PO PRN (13:54)
[2016-11-27] MEDS: Nicotine Inhaler* 10 MG AMP INH PRN (13:54)
[2016-11-27] MEDS ORDERED: Gabapentin CAP(*) 400 MG PO PRN (13:56)
[2016-11-27] MEDS: Vitamin THERAPEUTIC TAB PO SCH (13:59)
--- NOTE | 2016-11-27 14:35 | PN ---
MHU: Group Therapy Note - Service Type Service Type: [id number] Group Psychotherapy - Cognitive Behavioral Group Therapy ( CBT):Patient was attentive and participatory in CBT programming this morning, and remained in good behavioral control. Patient expressed positive insights regarding relevant treatment interventions and goals.
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
[2016-11-27] MEDS: Gabapentin CAP(*) 300 MG PO SCH (20:23)
[2016-11-27] MEDS: traZODone TAB* 50 MG TAB PO SCH (20:24)
[2016-11-27] MEDS ORDERED: ARIPiprazole TAB* 5 MG ONE (20:33)
[2016-11-27] MEDS ORDERED: Nicotine Patch Removal NOTE PATCH OFF SCH ×2 (21:00)
[2016-11-27] MEDS ORDERED: traZODone TAB* 100 MG PO SCH (21:00)
[2016-11-27] MEDS: ARIPiprazole TAB* 5 MG PO SCH (21:49)
[2016-11-28] MEDS ORDERED: Nicotine PATCH 7 MG/24 HR* PATCH TRANSDERM SCH (08:00)
[2016-11-28] MEDS ORDERED: Nicotine PATCH 21 MG/24 HR* PATCH TRANSDERM SCH (08:00)
[2016-11-28] MEDS ORDERED: Nicotine PATCH 14 MG/24 HR* PATCH TRANSDERM SCH (08:00)
[2016-11-28] MEDS: Vitamin THERAPEUTIC TAB PO SCH (08:39)
[2016-11-28] MEDS: Gabapentin CAP(*) 300 MG PO SCH (08:40)
[2016-11-28] MEDS: Acetaminophen TAB* 325 MG PO PRN (08:41)
[2016-11-28] MEDS: Nicotine GUM* 2 MG PO PRN (09:29)
--- NOTE | 2016-11-28 18:54 | PN ---
<ChengMabel - Last Filed: 11/28/16 19:06> Subjective - Subjective Service Type: [id number] Hosp care 15 min low complexity Subjective: Bev, who prefers to go by "Joanna", is a female to male transgender 21 year old. He is cooperative and well engaged during interview. Found lying in bed writing. His mood is "ok", endorses periods of high anxiety but feels gabapentin is helping it. Denies suicidal ideation or thoughts of SIB. Denies any side effects from Abilify 5mg daily, that was started 11/27, evening. Reports periods of "disociating" that are intermittent. Has participated in groups today, though he feels he has heard this information repeatedly over the years. He talks about feeling stressed by working 28 hr/week at [employer] and the fact that he stopped going to therapy appointments. Objective - Appearance Appearance: Well Developed/Nourished, Healthy Appearing Dysmorphic Features: No Hygiene: Normal Grooming: Fairly Well Kept - Behavior Psychomotor Activities: Normal Exhibits Abnormal Movement: No - Attitude and Relatedness Attitude and Relatedness: Well Related Eye Contact: Good - Speech Quality: Unpressured Latencies: Normal Quantity: Appropriate - Mood Patient's Decription of Mood: "Anxious" - Affect Observed Affect: Fair Affect Consistent with: Dysphoria - Thought Process Patient's Thought Process: Coherent, Goal Directed Thought Content: No Passive Wish, No Suicidal Planning, No Homicidal Ideation, No Paranoid Ideation - Sensorium Experiencing Hallucinations: No, Sensorium is Clear Type of Hallucinations: Visual: No, Auditory: No, Command: No - Level of Consciousness Level of Consciousness: Alert Orientation: Yes Intact, Yes Orientated to Time, Yes Orientated to Place, Yes Orientated to Person - Impulse Control Impulse Control: Intact - Insight and Judgement Insight and Judgement: Fair - Group Participation Particating in Group Activities: Yes - Medication Management Medication Management Adherence: Yes Assessment - Assessment Merits Inpatient Hospitalization: For Stabilization, For Ongoing Evaluation Clinical Impression: This is the 7th psychiatric inpatient hospitalization for this 21 year old female to male transgender with history of borderline personality disorder and affective problems. He arrives at hospital as a self referral seeking hospitalization for depressed mood, suicidal ideation and anxiety. He had been non adherent to previous outpatient treatment and medications at [facility] clinic in the recent past. Medication trial this admission: Abilify 5mg po daily, Gabapentin 300mg po bid and Gabapentin 400mg daily prn for anxiety. He is using Nicotine inhaler. Plan - Plan Treatment Plan: Name: BEV GORDON Birthdate: 1995 [id number] Medications: Current Medications Acetaminophen (Tylenol Tab*) 650 mg PO Q4H PRN PRN Reason: PAIN or TEMP > 101 F Last Admin: 11/28/16 08:41 Dose: 650 mg Al Hydrox/Mg Hydrox/Simethicone (Maalox Plus*) 30 ml PO Q4H PRN PRN Reason: INDIGESTION Aripiprazole (Abilify Tab*) 5 mg PO BEDTIME VANESSA Last Admin: 11/27/16 21:49 Dose: Not Given Device (Nicotine Mouth Piece*) 1 each INH .USE WITH NICOTROL PRN PRN Reason: CRAVING Gabapentin (Neurontin Cap(*)) 300 mg PO BID VANESSA Last Admin: 11/28/16 08:40 Dose: 300 mg Gabapentin (Neurontin Cap(*)) 400 mg PO DAILY PRN PRN Reason: ANXIETY Ibuprofen (Motrin Tab*) 600 mg PO Q6H PRN PRN Reason: PAIN Multivitamins (Theragran Tab*) 1 tab PO DAILY VANESSA Last Admin: 11/28/16 08:39 Dose: 1 tab Nicotine (Nicotine Inhaler*) 10 mg INH Q2H PRN PRN Reason: CRAVING Last Admin: 11/27/16 13:54 Dose: 10 mg Nicotine Polacrilex (Nicotine Gum*) 4 mg PO Q2H PRN PRN Reason: CRAVING Last Admin: 11/28/16 09:29 Dose: 4 mg Ondansetron HCl (Zofran Tab*) 4 mg PO Q8H PRN PRN Reason: NAUSEA Last Admin: 11/27/16 16:18 Dose: 4 mg Trazodone HCl (Desyrel Tab*) 75 mg PO BEDTIME VANESSA Last Admin: 11/27/16 20:24 Dose: 75 mg <Miky Salinas - Last Filed: 11/29/16 17:51> Subjective - Subjective Subjective: Reviewed this note written by student psychiatric nurse practitioner, Mabel Anand, and approved it after discussion with her. Plan - Plan Treatment Plan: Name: BEV GORDON Birthdate: 1995 [id number] Medications: Current Medications Acetaminophen (Tylenol Tab*) 650 mg PO Q4H PRN PRN Reason: PAIN or TEMP > 101 F Last Admin: 11/28/16 08:41 Dose: 650 mg Al Hydrox/Mg Hydrox/Simethicone (Maalox Plus*) 30 ml PO Q4H PRN PRN Reason: INDIGESTION Aripiprazole (Abilify Tab*) 5 mg PO BEDTIME [facility] Last Admin: 11/27/16 21:49 Dose: Not Given Device (Nicotine Mouth Piece*) 1 each INH .USE WITH NICOTROL PRN PRN Reason: CRAVING Gabapentin (Neurontin Cap(*)) 300 mg PO BID [facility] Last Admin: 11/29/16 08:20 Dose: 300 mg Gabapentin (Neurontin Cap(*)) 400 mg PO DAILY PRN PRN Reason: ANXIETY Last Admin: 11/29/16 16:09 Dose: 400 mg Ibuprofen (Motrin Tab*) 600 mg PO Q6H PRN PRN Reason: PAIN Last Admin: 11/29/16 08:21 Dose: 600 mg Multivitamins (Theragran Tab*) 1 tab PO DAILY VANESSA Last Admin: 11/29/16 08:20 Dose: 1 tab Nicotine (Nicotine Inhaler*) 10 mg INH Q2H PRN PRN Reason: CRAVING Last Admin: 11/29/16 08:21 Dose: 10 mg Nicotine Polacrilex (Nicotine Gum*) 4 mg PO Q2H PRN PRN Reason: CRAVING Last Admin: 11/28/16 09:29 Dose: 4 mg Ondansetron HCl (Zofran Tab*) 4 mg PO Q8H PRN PRN Reason: NAUSEA Last Admin: 11/27/16 16:18 Dose: 4 mg Trazodone HCl (Desyrel Tab*) 75 mg PO BEDTIME VANESSA Last Admin: 11/27/16 20:24 Dose: 75 mg
[2016-11-29] MEDS: Gabapentin CAP(*) 300 MG PO SCH ×3 (08:20→20:51)
[2016-11-29] MEDS: Vitamin THERAPEUTIC TAB PO SCH (08:20)
[2016-11-29] MEDS: Nicotine Inhaler* 10 MG AMP INH PRN (08:21)
[2016-11-29] MEDS: Ibuprofen TAB* 600 MG PO PRN (08:21)
[2016-11-29] MEDS: traZODone TAB* 50 MG TAB PO SCH ×2 (17:53→20:52)
[2016-11-29] MEDS: ARIPiprazole TAB* 5 MG PO SCH ×2 (17:53→20:51)
[2016-11-30] MEDS: Gabapentin CAP(*) 300 MG PO SCH ×2 (08:25→20:32)
[2016-11-30] MEDS: Vitamin THERAPEUTIC TAB PO SCH (08:25)
[2016-11-30] MEDS: Ibuprofen TAB* 600 MG PO PRN ×2 (08:26→19:15)
--- NOTE | 2016-11-30 14:59 | PN ---
<ChengMabel - Last Filed: 11/30/16 16:38> Subjective - Subjective Service Type: [id number] Hosp care 15 min low complexity Subjective: "Li" as he likes to be called was found playing cards with other patients and getting there opinion on the outcome of her MMPI 2. Her mood is "frustrated", affect irritable. She reports that after having met with for 1 hour to discuss MMPI 2 results, she feels that she still doesn't have a diagnosis. She states she thought that only he could diagnosis her. She feels that she could be schizophrenic, states she has "psychosis" intermittently. Objective - Appearance Appearance: Healthy Appearing Dysmorphic Features: No Hygiene: Normal Grooming: Disheveled - Behavior Psychomotor Activities: Normal Exhibits Abnormal Movement: No - Attitude and Relatedness Attitude and Relatedness: Irritable Eye Contact: Good - Speech Quality: Unpressured Latencies: Normal Quantity: Appropriate - Mood Patient's Decription of Mood: frustrated - Affect Observed Affect: Expansive Affect Consistent with: Euthymia - Thought Process Patient's Thought Process: Coherent, Goal Directed Thought Content: No Passive Wish, No Suicidal Planning, No Homicidal Ideation, No Paranoid Ideation - Sensorium Experiencing Hallucinations: No, Sensorium is Clear Type of Hallucinations: Visual: No, Auditory: No, Command: No - Level of Consciousness Level of Consciousness: Alert Orientation: Yes Intact, Yes Orientated to Time, Yes Orientated to Place, Yes Orientated to Person - Impulse Control Impulse Control: Intact - Insight and Judgement Insight and Judgement: Poor - Group Participation Particating in Group Activities: Yes - Medication Management Medication Management Adherence: Yes Assessment - Assessment Merits Inpatient Hospitalization: For Ongoing Evaluation, Consolidate Improvements Clinical Impression: This is the 7th psychiatric inpatient hospitalization for this 21 year old female to male transgender with history of borderline personality disorder and affective problems. He arrives at hospital as a self referral seeking hospitalization for depressed mood, suicidal ideation and anxiety. He had been non adherent to previous outpatient treatment and medications at [facility] clinic in the recent past. Medication trial this admission: Abilify 5mg po daily, Gabapentin 300mg po bid and Gabapentin 400mg daily prn for anxiety. He is using Nicotine inhaler. Had MMPI 2 testing and seems invested in getting a diagnosis of schizophrenia. There is no c/o of auditory or visual hallucinations today. He is social with other patients. Sleeping well, appetite good, social with other patients. Patient is stabilizing and adjusting to medication. Plan - Plan Treatment Plan: Name: BEV GORDON Birthdate: 1995 [id number] Medications: Current Medications Acetaminophen (Tylenol Tab*) 650 mg PO Q4H PRN PRN Reason: PAIN or TEMP > 101 F Last Admin: 11/28/16 08:41 Dose: 650 mg Al Hydrox/Mg Hydrox/Simethicone (Maalox Plus*) 30 ml PO Q4H PRN PRN Reason: INDIGESTION Aripiprazole (Abilify Tab*) 5 mg PO BEDTIME [facility] Last Admin: 11/29/16 20:51 Dose: 5 mg Device (Nicotine Mouth Piece*) 1 each INH .USE WITH NICOTROL PRN PRN Reason: CRAVING Gabapentin (Neurontin Cap(*)) 300 mg PO BID [facility] Last Admin: 11/30/16 08:25 Dose: 300 mg Gabapentin (Neurontin Cap(*)) 400 mg PO DAILY PRN PRN Reason: ANXIETY Last Admin: 11/29/16 16:09 Dose: 400 mg Ibuprofen (Motrin Tab*) 600 mg PO Q6H PRN PRN Reason: PAIN Last Admin: 11/30/16 08:26 Dose: 600 mg Multivitamins (Theragran Tab*) 1 tab PO DAILY [facility] Last Admin: 11/30/16 08:25 Dose: 1 tab Nicotine (Nicotine Inhaler*) 10 mg INH Q2H PRN PRN Reason: CRAVING Last Admin: 11/29/16 08:21 Dose: 10 mg Nicotine Polacrilex (Nicotine Gum*) 4 mg PO Q2H PRN PRN Reason: CRAVING Last Admin: 11/28/16 09:29 Dose: 4 mg Ondansetron HCl (Zofran Tab*) 4 mg PO Q8H PRN PRN Reason: NAUSEA Last Admin: 11/27/16 16:18 Dose: 4 mg Trazodone HCl (Desyrel Tab*) 75 mg PO BEDTIME [facility] Last Admin: 11/29/16 20:52 Dose: 75 mg <Miky Salinas - Last Filed: 11/30/16 16:52> Subjective - Subjective Subjective: Reviewed this note written by student psychiatric nurse practitioner, Mabel Anand, and approved it after discussion with her. Plan - Plan Treatment Plan: Name: BEV GORDON Birthdate: 1995 [id number] Medications: Current Medications Acetaminophen (Tylenol Tab*) 650 mg PO Q4H PRN PRN Reason: PAIN or TEMP > 101 F Last Admin: 11/30/16 16:37 Dose: 650 mg Al Hydrox/Mg Hydrox/Simethicone (Maalox Plus*) 30 ml PO Q4H PRN PRN Reason: INDIGESTION Aripiprazole (Abilify Tab*) 5 mg PO BEDTIME VANESSA Last Admin: 11/29/16 20:51 Dose: 5 mg Device (Nicotine Mouth Piece*) 1 each INH .USE WITH NICOTROL PRN PRN Reason: CRAVING Gabapentin (Neurontin Cap(*)) 300 mg PO BID VANESSA Last Admin: 11/30/16 08:25 Dose: 300 mg Gabapentin (Neurontin Cap(*)) 400 mg PO DAILY PRN PRN Reason: ANXIETY Last Admin: 11/29/16 16:09 Dose: 400 mg Ibuprofen (Motrin Tab*) 600 mg PO Q6H PRN PRN Reason: PAIN Last Admin: 11/30/16 08:26 Dose: 600 mg Multivitamins (Theragran Tab*) 1 tab PO DAILY VANESSA Last Admin: 11/30/16 08:25 Dose: 1 tab Nicotine (Nicotine Inhaler*) 10 mg INH Q2H PRN PRN Reason: CRAVING Last Admin: 11/29/16 08:21 Dose: 10 mg Nicotine Polacrilex (Nicotine Gum*) 4 mg PO Q2H PRN PRN Reason: CRAVING Last Admin: 11/28/16 09:29 Dose: 4 mg Ondansetron HCl (Zofran Tab*) 4 mg PO Q8H PRN PRN Reason: NAUSEA Last Admin: 11/27/16 16:18 Dose: 4 mg Trazodone HCl (Desyrel Tab*) 75 mg PO BEDTIME VANESSA Last Admin: 11/29/16 20:52 Dose: 75 mg
[2016-11-30] MEDS: Acetaminophen TAB* 325 MG PO PRN (16:37)
[2016-11-30] MEDS: ARIPiprazole TAB* 5 MG PO SCH (20:32)
[2016-11-30] MEDS: traZODone TAB* 50 MG TAB PO SCH (20:33)
[2016-12-01 07:56] VITALS: BP 105/58
[2016-12-01] MEDS: Gabapentin CAP(*) 300 MG PO SCH (08:13)
[2016-12-01] MEDS: Vitamin THERAPEUTIC TAB PO SCH (08:14)
--- NOTE | 2016-12-01 14:52 | CONS ---
PSYCHOLOGICAL REPORT DATE OF CONSULTATION: 11/30/2016. REASON FOR REFERRAL: The patient was referred for psychological testing secondary to concerns regarding possible lethality as well as characterological vulnerabilities consistent with historical diagnosis of borderline personality disorder. TEST ADMINISTERED: The patient completed the [place] Multiphasic Personality Inventory-2 (MMPI-2) secondary to patient request. RELEVANT HISTORY: The patient is a female to male transgender person who prefers to be referred to as "Joanna." He is 21-years of age and describes becoming increasingly overwhelmed by a series of stressors in recent months. He has six prior psychiatric admissions with three occurring at this facility and others occurring at [facility] in [place], [place] as well as the [facility]. These have all occurred since 2013. The patient historically has been in [facility] [place], with current outpatient treatment occurring at [facility]. Joanna currently is employed part-time through [employer] in [place] while living in a rented room at his fikiera's mother's home in [place], [place]. Joanna identifies that the commute to work is difficult as he relies on public transportation. 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 Joanna also expresses some stress secondary to poor adjustment to this work environment, as well as an interest in attending school. Obstacles to returning to school presently include a need to complete a GED diploma in order to be eligible for financial services through [facility]. Joanna expressed hopes of being able to complete the GED in a timely way and begin studying at [employer], hopefully in the near future. [place] term difficulties revolve around her hopes of diminishing her hours at work and/or finding new employment. Joanna also describes being in polyamorous relationships, identifying three current boyfriends with one being the fiance. His fiance name is Messi and he lives on campus at [employer] in [place], [place]. Joanna describes dissatisfaction in this relationship and is better attached in a long distance situation with a boyfriend who currently lives in [place]. Joanna is unsure of how to manage this rather complex and chaotic landscape, endorsing emotional duress secondary to interpersonal stress. Historically, Joanna was raised by his maternal grandmother to the age of 17. He does not identify positive family of origin emotional supports either historically or presently. BEHAVIORAL OBSERVATIONS: Joanna is cooperative with all efforts to assess and treat while on the unit. He has been attentive in group process led by this assembly instructions writer, initiating thoughtful and earnest discussion both in group context as well as in individual psychotherapies. He spontaneously identifies complex future narrative, including educational and career goals and is also able to identify relevance of family stress. Joanna describes concerns about being accepted by family in regards to gender roll issues, which is identifies as an ongoing source of stress for him. Currently, Joanna presents with good affect and is spontaneous in speech and euthymic in affect. He is well related to both staff and peers, exhibiting empathic responses, even under stressful situations. TEST RESULTS: Joanna provides an extreme over-endorsement of psychopathologies on this administration of the MMPI-2, having elevated all three emotional duress scales to a T-score of greater than 120. Concomitantly, he has extreme low scoring occurring on emotional coping and self-esteem scales with those T- scores hovering right around 30, which is the extreme low end of the scale. Subsequently, Li elevates all clinical indices save the masculine feminine scale. Feedback emphasized emotional duress occurring in the interpersonal context most acutely as he elevates the schizophrenia and paranoia scales to between ranges of 100 and 115. Depression was a lesser concern with a T-score occurring around 80 which typically would be considered to be a very significant elevation, but is actually one of the lower clinical endorsement scales for Joanna currently. Discussion addressed borderline personality features with an emphasis on the interpersonal domain. Secondary discussion addressed thoughts and concerns regarding the transgender roll and how that can create a great deal of chaos and become a source of chronic stress in terms of adjustment. Joanna does not seem to harbor any apprehensions in regards to identification with being male. IMPRESSIONS AND RECOMMENDATIONS: Joanna identifies needing enhanced support in managing both vocational and educational stressors. He voices positive insights in regards to better managing interpersonal duress and is able to identify prosocial means of developing positive coping resources in this regard. He advocates for himself quite well and expresses an interest and hopes of experiencing mutually nurturing relationships in the future. DIAGNOSTIC IMPRESSION: Supports unspecified depressive disorder with historical difficulties with anxiety, including anorexia nervosa in the past. Secondary diagnosis includes borderline personality disorder as well. Joanna is felt to have positive prognostic indicators secondary to complex formulation of future narrative and good social adjustment. Damián Mcelroy, PhD Clinical Psychologist [id number]/[facility] #: [id number] [facility] CENTERSarah
[2016-12-01] MEDS ORDERED: ARIPiprazole TAB* 5 MG PO SCH (21:00)
--- NOTE | 2016-12-02 04:51 | DS ---
CC: [facility] * DISCHARGE SUMMARY: DATE OF ADMISSION: 11/26/16 DATE OF DISCHARGE: 12/01/16 SUPERVISING PSYCHIATRIST: Dr. Fernando Reardon * (DICTATED BY LEONIDES GODFREY NP) DISCHARGE DIAGNOSES: Major depressive disorder, moderate recurrent, generalized anxiety disorder, cluster B disorder in adult, GERD, gender dysmorphia disorder, and unspecified eating disorder. CONDITION ON AT THE TIME OF DISCHARGE: Improved. The patient is transgender, female to male and prefers to be called "Li." He is requested discharge today and reports improvement in mood. Denies suicidal ideation. Also reports improvement in anxiety with use of gabapentin. He reports looking forward to solidifying new housing and job prospects after discharge. He started working on this full application to return to case management and mental health resources in [facility]. He reports that he is concerned about returning to work immediately after discharge and we discussed this and appeals writer is agreeable to the patient returning to work on Wednesday, then he will have the weekend off and be able to transition back to work in schedule. The patient has been interactive and social on the unit. He minimally engages in program inciting that he is familiar with the topics. We discussed the importance of intensive DBT and he is agreeable to this citing that he has been told by other professionals to engage in DBT. He reports improvement in mood generalized generally. He states that he often feels worse in the morning and by this more depressed. We discussed the importance of allowing time for his mood stabilizers to be fully therapeutic and he is agreeable. The patient continues to want to pursue trans hormone treatment through [facility]. This appeals writer phoned [facility] and identified the lab work that would be needed. This includes CBC and nonfasting lipid panel. The patient was given copies of these tests that were done while here and can present those to [facility] when he is able to follow up. MENTAL STATUS EXAM: The patient is well appearing, in no pain or distress, dressed in his own clothing, and is euthymic with a bright affect. Cooperative and pleasant with interview, has questions. Alert and oriented x3. Good eye contact. Speech is regular in rate and rhythm and articulate. His concentration is good. His memory is 3/3. Thought process is logical, goal directed and coherent. Thought content is negative for preoccupation worries, suicidal ideation, HI or . Denies AV hallucinations, delusions or persecutions. Insight is good. Judgment is good. Fund of knowledge is excellent. DISCHARGE INSTRUCTIONS: Instructions given to the patient by nursing staff: A. Medications: Aripiprazole 10 mg p.o. at bedtime, gabapentin 300 mg p.o. b.i.d., gabapentin 400 mg p.o. daily p.r.n. anxiety, trazodone 75 mg p.o. q.h.s. , the patient may utilize [id number] ibuprofen for pain. The prescriptions were electronically prescribed to [facility] in [place]. B. Diet: Regular. C. Activities: Ambulation as tolerated. Tobacco cessation assistance declined by patient. There are no pending labs or diagnostic studies at the time of discharge. D. Followup: The patient was given appointments for [facility]. The patient also called [facility] to get [facility] for [facility] and the wait list is until December. The patient also completed a portion of [employer] application and gave this to meeting planner, Gwen Burgess, who will complete and submit to [employer] committee. HOSPITAL COURSE: A. Reason for admission: The patient presented to the emergency department voluntarily with a request for mental health evaluation due to suicidal ideations, increased depression, and panic attacks, and overwhelming psychosocial stressors. B. Psychiatric treatment rendered: The patient was admitted to the adult mental health unit on voluntary status. Code status was full. Placed on 15- minute checks for safety. The patient is transgender female to male and was given a private room because of this. The patient agreed to trial of Abilify 5 mg for mood and anxiety as well as gabapentin for anxiety. He requested trazodone for sleep. He also requested to repeat an MMPI for diagnostic clarification. The patient was safe on all checks and interactive with staff and peers. He participated in programming and was decreased to 30-minute checks and allowed staff pass. The patient was in behavioral control, tolerated Abilify and this was increased to 10 mg. No further changes were needed over the course of admission. This appeals writer consulted with Venkat, who is an educator at [facility], and identified that the patient could be seen in December to restart transitioning. Labs needed for this are CBC and nonfasting lipids. This was done while the patient was hospitalized and copies of these results were put in the discharge folder for him. The patient requested note for work to return on Wednesday and this was given to him and copy made for the chart. The patient was discharged by nursing staff after visiting hours and discharged with his cousin. LEONIDES GODFREY NP [id number]/[facility] #: [id number] KATTY
== END 2016-12-01 13:40 | disposition home or self-care (01) | DRG 751 ==
LOC: BSU 19:00
PROVIDERS: ADMIT Psychiatry & Neurology Psychiatry; ATTEND Psychiatry & Neurology Psychiatry
PROC: GZHZZZZ Group Psychotherapy (ICD-10-PCS; principal; 2016-11-27)
DX: F33.1 Major depressive disorder, recurrent, moderate (principal); R45.851 Suicidal ideations; F50.9 Eating disorder, unspecified; K21.9 Gastro-esophageal reflux disease without esophagitis; F41.1 Generalized anxiety disorder; F64.9 Gender identity disorder, unspecified; Z62.810 Personal history of physical and sexual abuse in childhood; J45.909 Unspecified asthma, uncomplicated; L50.1 Idiopathic urticaria; F60.3 Borderline personality disorder; F17.210 Nicotine dependence, cigarettes, uncomplicated; Z91.040 Latex allergy status; Z91.048 Other nonmedicinal substance allergy status; Z81.8 Family history of other mental and behavioral disorders
CPT/HCPCS: 90732; 93005; 96102; 99222; 99231; 99238; A9270-GY

== ENCOUNTER 2016-12-15 13:36 | Inpatient (IN) | payer MEDICAID, OTHER ==
[2016-12-15] MEDS ORDERED: Ondansetron ODT TAB* 4 MG PO ONE (14:16)
[2016-12-15 15:01] LABS: Hematocrit 39 % (35-47); Hemoglobin 13.2 g/dl (12.0-16.0); Mean Corpuscular HGB Conc 34 g/dl (31-36); Mean Corpuscular Hemoglobin 30 pg (27-31); Mean Corpuscular Volume 86 fL (80-97); Mean Platelet Volume 9 um3 (7.4-10.4); Red Blood Count 4.48 10^6/ul (4.0-5.4); Red Cell Distribution Width 13 % (10.5-15)
[2016-12-15 15:15] LABS: ALT 10 U/L (7-52); AST 17 U/L (13-39); Albumin 4.5 g/dL (3.2-5.2); Alkaline Phosphatase 99 U/L (34-104); Anion Gap 9 mmol/L (2-11); BUN/Creatinine Ratio 13.2 (8-20); Blood Urea Nitrogen 10 mg/dL (6-24); CO2 Carbon Dioxide 23 mmol/L (22-32); Calcium 9.8 mg/dL (8.6-10.3); Chloride 104 mmol/L (101-111); EGFR African American 124.8 (>60); Globulin 3.4 g/dL (2-4); Glucose 84 mg/dL (70-100); Potassium 3.6 mmol/L (3.5-5.0); Sodium 136 mmol/L (133-145); Total Protein 7.9 g/dL (6.4-8.9)
[2016-12-15 15:17] LABS: Urine Bacteria Absent (Absent); Urine Bilirubin Negative (Negative); Urine Glucose Negative (Negative); Urine Nitrite Negative (Negative)
[2016-12-15 15:19] LABS: Benzodiazepine Urine Screen None Detected (None Detect)
[2016-12-15 15:37] LABS: Acetaminophen < 15 mcg/mL; Alcohol < 10 mg/dL (<10); Salicylate < 2.50 mg/dL (<30)
[2016-12-15 15:47] LABS: TSH (Thyroid Stimulating Horm) 1.04 mcIU/mL (0.34-5.60)
[2016-12-15] MEDS ORDERED: Acetaminophen TAB* 325 MG PO PRN (19:35)
[2016-12-15] MEDS ORDERED: Al Hydrox/Mg Hydrox/Simet LIQ* 30 ML UDC PO PRN (19:35)
[2016-12-15] MEDS ORDERED: chlorproMAZINE TAB* 50 MG PO PRN (19:37)
[2016-12-15] MEDS ORDERED: diPHENhydraMINE PO* 50 MG PO PRN (19:38)
--- NOTE | 2016-12-15 23:02 | ED ---
Floyd Wang Alfonso, scribed for Ambrosio Damico MD on 12/15/16 at 1416 . Psychiatric Complaint - HPI Summary HPI Summary: This patient is a 21 year old F presenting to [facility] with a chief complaint of depression since a few days ago. The patient recently began taking Testosterone and prefers the pronouns he/him. The patient rates the pain 0/10 in severity. Symptoms aggravated by nothing. Symptoms alleviated by nothing. Patient reports nausea, feeling manic, feeling so fidgety, feeling dissociative, and wanting to hurt himself (not kill himself). Patient denies SI. He denies substance use today. - History Of Current Complaint Chief Complaint: EDMentalHealth Time Seen by Provider: 12/15/16 14:01 Hx Obtained From: Patient Onset/Duration: Gradual Onset, Lasting Days, Still Present Timing: Constant Character: Depressed Aggravating Factor(s): Nothing Alleviating Factor(s): Nothing Has Suicidal: Denies: Thoughts - Allergies/Home Medications Allergies/Adverse Reactions: Allergies Allergy/AdvReac Type Severity Reaction Status Date / Time Latex Allergy Rash Verified 12/15/16 22:00 Perfume Allergy Difficulty Verified 12/15/16 22:00 Breathing/Wheezing Home Medications: Home Medications Testosterone GEL (NF) [Androgel (NF)] 2.5 mg TOPICAL DAILY 12/15/16 [History Confirmed 12/15/16] PMH/Surg Hx/FS Hx/Imm Hx Endocrine/Hematology History: Denies: Hx Anticoagulant Therapy, Hx Diabetes, Hx Thyroid Disease Cardiovascular History: Denies: Hx Congestive Heart Failure, Hx Hypertension Respiratory History: Reports: Hx Asthma, Hx Seasonal Allergies Denies: Hx Chronic Obstructive Pulmonary Disease (COPD) GI History: Reports: Hx Gastroesophageal Reflux Disease Denies: Hx Ulcer History: Reports: Other Problems/Disorders - Chronic UTI Denies: Hx Renal Disease Sensory History: Denies: Hx Contacts or Glasses, Hx Hearing Aid Opthamlomology History: Denies: Hx Contacts or Glasses Psychiatric History: Reports: Hx Anxiety, Hx Eating Disorder - Reports hx anorexia, Hx Depression, Hx Inpatient Treatment, Hx Community Mental Health Tx, Hx Suicide Attempt - past attempts, Other Psychiatric Issues/Disorders - Borderline personality Denies: Hx Attention Deficit Hyperactivity Disorder, Hx Panic Disorder, Hx Post Traumatic Stress Disorder, Hx Schizophrenia, Hx Bipolar Disorder, Hx of Violent Episodes Against Others, Hx Substance Abuse Infectious Disease History: No Infectious Disease History: Denies: Hx Clostridium Difficile, Hx Hepatitis, Hx Human Immunodeficiency Virus (HIV), Hx of Known/Suspected MRSA, Hx Shingles, Hx Tuberculosis, Hx Known/ Suspected VRE, Hx Known/Suspected VRSA, History Other Infectious Disease, Traveled Outside the [place] in Last 30 Days - Family History Known Family History: Positive: Diabetes Negative: Cardiac Disease, Hypertension Family History: Family history of SLE, multiple sclerosis, temporal lobe epilepsy, Graves' disease, and trigeminal neuralgia in mother in addition to borderline personality disorder. Maternal grandmother suffers from depression, chronic fatigue syndrome, and Marvin's disease. - Social History Alcohol Use: Rare Hx Substance Use: No Substance Use Type: Reports: Marijuana Substance Use Comment - Amount & Last Used: pt reports using marijuana about once a month, last used 3 weeks ago Hx Tobacco Use: Yes Smoking Status (MU): Light Every Day Tobacco Smoker Type: Cigarettes Amount Used/How Often: 1/2 pack per day Length of Time of Smoking/Using Tobacco: few years Have You Smoked in the Last Year: Yes Review of Systems Negative: Fever Positive: Nausea Psychological: Other - feeling manic, feeling so fidgety, feeling dissociative, and wanting to hurt himself (not kill himself) Positive: Depressed All Other Systems Reviewed And Are Negative: Yes Physical Exam - Summary Physical Exam Summary: General: well-appearing, no pain distress Skin: warm, color reflects adequate perfusion, dry Head: normal Eyes: EOMI, BRANT ENT: normal Neck: supple, nontender Respiratory: CTA, breath sounds present Cardiovascular: RRR Abdomen: soft, nontender Bowel: present Musculoskeletal: normal, strength/ROM intact Neurological: normal, sensory/motor intact, A&O x3 Psychological: affect/mood appropriate Triage Information Reviewed: Yes Vital Signs On Initial Exam: Initial Vitals Temp Pulse Resp BP Pulse Ox 98.3 F 73 20 123/83 98 12/15/16 13:50 12/15/16 13:50 12/15/16 13:50 12/15/16 13:50 12/15/16 13:50 Vital Signs Reviewed: Yes Diagnostics - Vital Signs Vital Signs Temp Pulse Resp BP Pulse Ox 12/15/16 13:50 98.3 F 73 20 123/83 98 - Laboratory Lab Results: Lab Results 12/15/16 12/15/16 12/15/16 Range/Units 14:49 14:49 14:49 WBC 8.0 (3.5-10.8) 10^3/ul RBC 4.48 (4.0-5.4) 10^6/ul Hgb 13.2 (12.0-16.0) g/dl Hct 39 (35-47) % MCV 86 (80-97) fL MCH 30 (27-31) pg MCHC 34 (31-36) g/dl RDW 13 (10.5-15) % Plt Count 315 (150-450) 10^3/ul MPV 9 (7.4-10.4) um3 Neut % (Auto) 68.5 (38-83) % Lymph % (Auto) 23.5 L (25-47) % Phelps % (Auto) 6.9 (1-9) % Eos % (Auto) 0.3 (0-6) % Baso % (Auto) 0.8 (0-2) % Absolute Neuts (auto) 5.5 (1.5-7.7) 10^3/ul Absolute Lymphs (auto) 1.9 (1.0-4.8) 10^3/ul Absolute Monos (auto) 0.5 (0-0.8) 10^3/ul Absolute Eos (auto) 0 (0-0.6) 10^3/ul Absolute Basos (auto) 0.1 (0-0.2) 10^3/ul Absolute Nucleated RBC 0 10^3/ul Nucleated RBC % 0 Sodium 136 (133-145) mmol/L Potassium 3.6 (3.5-5.0) mmol/L Chloride 104 (101-111) mmol/L Carbon Dioxide 23 (22-32) mmol/L Anion Gap 9 (2-11) mmol/L BUN 10 (6-24) mg/dL Creatinine 0.76 (0.51-0.95) mg/dL Est GFR ( Amer) 124.8 (>60) Est GFR (Non-Af Amer) 97.0 (>60) BUN/Creatinine Ratio 13.2 (8-20) Glucose 84 (70-100) mg/dL Calcium 9.8 (8.6-10.3) mg/dL Total Bilirubin 0.60 (0.2-1.0) mg/dL AST 17 (13-39) U/L ALT 10 (7-52) U/L Alkaline Phosphatase 99 (34-104) U/L Total Protein 7.9 (6.4-8.9) g/dL Albumin 4.5 (3.2-5.2) g/dL Globulin 3.4 (2-4) g/dL Albumin/Globulin Ratio 1.3 (1-3) TSH 1.04 (0.34-5.60) mcIU/mL Urine Color Urine Appearance Urine pH (5-9) Ur Specific [place] (1.010-1.030) Urine Protein (Negative) Urine Ketones (Negative) Urine Blood (Negative) Urine Nitrate (Negative) Urine Bilirubin (Negative) Urine Urobilinogen (Negative) Ur Leukocyte Esterase (Negative) Urine WBC (Auto) (Absent) Urine RBC (Auto) (Absent) Urine Bacteria (Absent) Urine Glucose (Negative) Salicylates < 2.50 (<30) mg/dL Urine Opiates Screen None detected (None Detect) Acetaminophen < 15 mcg/mL Ur Barbiturates Screen None detected (None Detect) Ur Phencyclidine Scrn None detected (None Detect) Ur Amphetamines Screen None detected (None Detect) U Benzodiazepines Scrn None detected (None Detect) Urine Cocaine Screen None detected (None Detect) U Cannabinoids Screen Presumptive positive H (None Detect) Serum Alcohol < 10 (<10) mg/dL 12/15/16 Range/Units 14:49 WBC (3.5-10.8) 10^3/ul RBC (4.0-5.4) 10^6/ul Hgb (12.0-16.0) g/dl Hct (35-47) % MCV (80-97) fL MCH (27-31) pg MCHC (31-36) g/dl RDW (10.5-15) % Plt Count (150-450) 10^3/ul MPV (7.4-10.4) um3 Neut % (Auto) (38-83) % Lymph % (Auto) (25-47) % Phelps % (Auto) (1-9) % Eos % (Auto) (0-6) % Baso % (Auto) (0-2) % Absolute Neuts (auto) (1.5-7.7) 10^3/ul Absolute Lymphs (auto) (1.0-4.8) 10^3/ul Absolute Monos (auto) (0-0.8) 10^3/ul Absolute Eos (auto) (0-0.6) 10^3/ul Absolute Basos (auto) (0-0.2) 10^3/ul Absolute Nucleated RBC 10^3/ul Nucleated RBC % Sodium (133-145) mmol/L Potassium (3.5-5.0) mmol/L Chloride (101-111) mmol/L Carbon Dioxide (22-32) mmol/L Anion Gap (2-11) mmol/L BUN (6-24) mg/dL Creatinine (0.51-0.95) mg/dL Est GFR ( Amer) (>60) Est GFR (Non-Af Amer) (>60) BUN/Creatinine Ratio (8-20) Glucose (70-100) mg/dL Calcium (8.6-10.3) mg/dL Total Bilirubin (0.2-1.0) mg/dL AST (13-39) U/L ALT (7-52) U/L Alkaline Phosphatase (34-104) U/L Total Protein (6.4-8.9) g/dL Albumin (3.2-5.2) g/dL Globulin (2-4) g/dL Albumin/Globulin Ratio (1-3) TSH (0.34-5.60) mcIU/mL Urine Color Nieves Urine Appearance Turbid Urine pH 5.0 (5-9) Ur Specific [place] 1.027 (1.010-1.030) Urine Protein Negative (Negative) Urine Ketones Trace H (Negative) Urine Blood 3+ H (Negative) Urine Nitrate Negative (Negative) Urine Bilirubin Negative (Negative) Urine Urobilinogen Negative (Negative) Ur Leukocyte Esterase Trace H (Negative) Urine WBC (Auto) Absent (Absent) Urine RBC (Auto) Absent (Absent) Urine Bacteria Absent (Absent) Urine Glucose Negative (Negative) Salicylates (<30) mg/dL Urine Opiates Screen (None Detect) Acetaminophen mcg/mL Ur Barbiturates Screen (None Detect) Ur Phencyclidine Scrn (None Detect) Ur Amphetamines Screen (None Detect) U Benzodiazepines Scrn (None Detect) Urine Cocaine Screen (None Detect) U Cannabinoids Screen (None Detect) Serum Alcohol (<10) mg/dL Result Diagrams: 12/15/16 14:49 12/15/16 14:49 Lab Statement: Any lab studies that have been ordered have been reviewed, and results considered in the medical decision making process. Course/Dx - Course Course Of Treatment: ADMIT BSU - Differential Dx/Clinical Impression Provider Diagnosis: Mental health problem Discharge - Discharge Plan Condition: Stable Disposition: PSYCHIATRIC FACILITY-[facility] [place] Discharge Disposition Comment: BSU The documentation as recorded by the Floyd morley Alfonso accurately reflects the service I personally performed and the decisions made by me, Ambrosio Damico MD.
[2016-12-16] MEDS ORDERED: Nicotine PATCH 14 MG/24 HR* PATCH TRANSDERM SCH (08:00)
[2016-12-16] MEDS ORDERED: Nicotine PATCH 7 MG/24 HR* PATCH TRANSDERM SCH (08:00)
[2016-12-16] MEDS ORDERED: Influenza VAC *QUAD* 2017-18* 0.5 ML SYRINGE IM ONE (09:00)
[2016-12-16] MEDS ORDERED: Mouth Piece, Nicotine* 1 EACH CARTRIDGE ONE (09:31)
[2016-12-16] MEDS: Nicotine Inhaler* 10 MG AMP INH PRN (09:31)
[2016-12-16] MEDS: Nicotine PATCH 21 MG/24 HR* PATCH TRANSDERM SCH (09:32)
[2016-12-16] MEDS: Vitamin THERAPEUTIC TAB PO SCH (09:33)
[2016-12-16] MEDS ORDERED: traZODone TAB* 50 MG TAB PO PRN (10:58)
[2016-12-16] MEDS: Gabapentin CAP(*) 300 MG PO SCH ×2 (12:30→20:04)
[2016-12-16] MEDS: Calcium Carbonate TAB* 1250 MG (CALCIUM 500 MG) PO SCH (12:30)
[2016-12-16] MEDS: TESTOSTERONE 1% TOPICAL SCH (12:31)
[2016-12-16] MEDS: Gabapentin CAP(*) 400 MG PO PRN (15:59)
[2016-12-16] MEDS: ARIPiprazole TAB* 5 MG PO SCH (20:05)
[2016-12-16] MEDS: Nicotine Patch Removal NOTE PATCH OFF SCH (20:06)
[2016-12-16] MEDS: Mirtazapine TAB* 15 MG PO PRN (20:49)
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
[2016-12-17] MEDS: Nicotine PATCH 21 MG/24 HR* PATCH TRANSDERM SCH (08:09)
[2016-12-17] MEDS: Gabapentin CAP(*) 300 MG PO SCH ×2 (08:36→20:11)
[2016-12-17] MEDS: Calcium Carbonate TAB* 1250 MG (CALCIUM 500 MG) PO SCH (08:37)
[2016-12-17] MEDS: Vitamin THERAPEUTIC TAB PO SCH (09:26)
[2016-12-17] MEDS: TESTOSTERONE 1% TOPICAL SCH (11:25)
--- NOTE | 2016-12-17 12:20 | PN ---
Subjective - Subjective Service Type: 27756 Hosp care 15 min low complexity Subjective: Patient reports improved mood and denies anxiety or SI, urges to self harm. He states that he slept well last night and was surprised at the sedative effect of mirtazapine. He denies physical restlessness or agitation. We discuss that he likely had akathesia r/t higher dose of aripiprazole. He states he would like to be discharged before Halloween due to plans with a friend from work. Patient reports the bottle of clonazepam that is stored in security is from a previous script and that he kept it in case of a panic attack that did not respond to other efforts. He states he last utilized this approx two weeks ago. This is consistent information from [employer] website, ref #[id number]. Patient reports desire to gain primary care and prefers a practice in [place] due to plans to move in 3 months. Sign Language Interpreter gave him office numbers and instructed him to call and ask if accepting new patients. Objective - Appearance Appearance: Well Developed/Nourished Dysmorphic Features: No Hygiene: Normal Grooming: Well Kept - Behavior Psychomotor Activities: Normal Exhibits Abnormal Movement: No - Attitude and Relatedness Attitude and Relatedness: Cooperative Eye Contact: Good - Speech Quality: Unpressured Latencies: Normal Quantity: Appropriate - Mood Patient's Decription of Mood: "Good" - Affect Observed Affect: Good Affect Consistent with: Euthymia - Thought Process Patient's Thought Process: Coherent, Goal Directed Thought Content: No Passive Wish, No Suicidal Planning, No Homicidal Ideation, No Paranoid Ideation - Sensorium Experiencing Hallucinations: No, Sensorium is Clear Type of Hallucinations: Visual: No, Auditory: No, Command: No - Level of Consciousness Level of Consciousness: Alert Orientation: Yes Intact, Yes Orientated to Time, Yes Orientated to Place, Yes Orientated to Person - Impulse Control Impulse Control: Tenuous - Insight and Judgement Insight and Judgement: Fair - Group Participation Particating in Group Activities: Yes - Medication Management Medication Management Adherence: Yes Assessment - Assessment Merits Inpatient Hospitalization: For Immediate Safety, For Stabilization, Pending Safe DC Plan Inpatient DSM-IV Dx: major depressive d/o; TATO; cluster B d/o; GERD; gender dysmorphia d/o Clinical Impression: 21yo female to male transgender who presented to ED requesting hospitalization due to depressed mood, anxiety and SI. He stopped taking psychiatric medications due to concerns these were causing worsening symptoms. He started testosterone for gender reassignment. He merits hospitalization for immediate safety and stabilization. Plan - Plan Treatment Plan: Name: BEV GORDON Birthdate: 1995 [id number] continue acute intensive psychiatric treatment and current medications. decrease to q30min observation and allow staff pass and computer use for discharge planning. Patient given resources to assist in identifying a new primary care provider. Continued Medication Management: Different Medication Medications: Current Medications Acetaminophen (Tylenol Tab*) 650 mg PO Q4H PRN PRN Reason: for pain; or Temp >101 F Al Hydrox/Mg Hydrox/Simethicone (Maalox Plus*) 30 ml PO Q4H PRN PRN Reason: INDIGESTION Aripiprazole (Abilify Tab*) 5 mg PO BEDTIME [facility] Last Admin: 12/16/16 20:05 Dose: 5 mg Calcium Carbonate (Calcium Carbonate Tab*) 1,875 mg PO DAILY [facility] Last Admin: 12/17/16 08:37 Dose: 1,875 mg Chlorpromazine HCl (Thorazine Tab*) 50 mg PO Q6H PRN PRN Reason: AGITATION Last Admin: 12/15/16 21:53 Dose: 50 mg Diphenhydramine HCl (Benadryl Po*) 50 mg PO Q6H PRN PRN Reason: AGITATION Gabapentin (Neurontin Cap(*)) 300 mg PO BID [facility] Last Admin: 12/17/16 08:36 Dose: 300 mg Gabapentin (Neurontin Cap(*)) 400 mg PO DAILY PRN PRN Reason: ANXIETY Last Admin: 12/16/16 15:59 Dose: 400 mg Mirtazapine (Remeron Tab*) 15 mg PO BEDTIME PRN PRN Reason: SLEEP Last Admin: 12/16/16 20:49 Dose: 15 mg Multivitamins (Theragran Tab*) 1 tab PO DAILY [facility] Last Admin: 12/17/16 09:26 Dose: Not Given Nicotine (Nicotine Inhaler*) 10 mg INH Q2H PRN PRN Reason: CRAVING Last Admin: 12/16/16 09:31 Dose: 10 mg Nicotine (Nicotine Patch 21 Mg/24 Hr*) 1 patch TRANSDERM DAILY [facility] Last Admin: 12/17/16 08:09 Dose: Not Given Testerone Gel 1% Non Formulary Med 1 Dose Dose 1 dose TOPICAL DAILY [facility] Last Admin: 12/17/16 11:25 Dose: 1 dose Pharmacy Profile Note (Nicotine Patch Removal Note*) 1 note PATCH OFF 2099 [facility] Last Admin: 12/16/16 20:06 Dose: Not Given - Discharge Plan Discharge Plan: Outpatient Follow Up Outpatient Program: [facility]
[2016-12-17] MEDS: Nicotine Inhaler* 10 MG AMP INH PRN (13:54)
[2016-12-17] MEDS: ARIPiprazole TAB* 5 MG PO SCH (20:11)
[2016-12-17] MEDS: Mirtazapine TAB* 15 MG PO PRN (20:13)
[2016-12-17] MEDS: Nicotine Patch Removal NOTE PATCH OFF SCH (20:47)
[2016-12-18 08:14] VITALS: BP 112/61
[2016-12-18] MEDS ORDERED: TESTOSTERONE 25 MG TOPICAL SCH (09:00)
[2016-12-18] MEDS ORDERED: [UNRECOGNIZED DRUG - OTHER] TOPICAL SCH (09:00)
[2016-12-18] MEDS: Nicotine PATCH 21 MG/24 HR* PATCH TRANSDERM SCH (09:11)
[2016-12-18] MEDS: Vitamin THERAPEUTIC TAB PO SCH (09:11)
[2016-12-18] MEDS: Calcium Carbonate TAB* 1250 MG (CALCIUM 500 MG) PO SCH (09:12)
[2016-12-18] MEDS: Gabapentin CAP(*) 300 MG PO SCH (09:12)
[2016-12-18] MEDS: Gabapentin CAP(*) 400 MG PO PRN (11:20)
--- NOTE | 2016-12-18 11:46 | PN ---
[facility]: Group Therapy Note - Service Type Service Type: 55586 Group Psychotherapy - Cognitive Behavioral Group Therapy ( CBT):Patient was attentive and participatory in CBT programming this morning, and remained in good behavioral control. Patient expressed positive insights regarding relevant treatment interventions and goals.
--- NOTE | 2016-12-19 16:25 | DS ---
CC: [facility] * DISCHARGE SUMMARY: DATE OF ADMISSION: 12/15/16 DATE OF DISCHARGE: 12/18/16 SUPERVISING PSYCHIATRIST: Dr. Fernando Reardon * (DICTATED BY LEONIDES GODFREY NP) DISCHARGE DIAGNOSES: 1. Major depressive disorder, moderate, recurrent. 2. Generalized anxiety disorder. 3. Cluster B disorder in adult 4. Gastroesophageal reflux disease. 5. Gender dysmorphia disorder. CONDITION AT THE TIME OF DISCHARGE: Improved. HISTORY OF PRESENT ILLNESS: The patient is a transgender, female to male, prefers to be called Li. He is requesting discharge today and reports improvement in mood and denies anxiety. He denies suicidal ideation or urges to self-injure. He reports satisfaction with reinstatement of current medications and wants to continue with outpatient mental health treatment. He currently sees Sienna Sher as a therapist and is waiting to have an intake with psychiatrist. The patient has been calm and in behavioral control on the unit. He has engaged in programming and been interactive with staff and peers. MENTAL STATUS EXAM: The patient is well appearing, in no apparent distress. Dressed in his own clothing and is euthymic with bright affect. Cooperative and pleasant with interview. He has questions in regards to time of discharge and there were no concerns at this time. Alert and oriented x3. Good eye contact. Speech is regular in rate and rhythm and articulate. His concentration is good. Memory is 3/3. Thought process is logical, goal directed , coherent. Thought content is negative for SI, urges, or self-harm, HI, , and denies pre-occupation or worries. His insight is good. His judgment is good. His fund of knowledge is adequate. DISCHARGE INSTRUCTIONS: A. Medications: The patient arrived with an old prescription bottle of clonazepam, which was discontinued on his last admission. This was ordered to be destroyed here at the hospital. He will continue on Abilify 5 mg p.o. q.h.s. , gabapentin 300 mg p.o. b.i.d., gabapentin 400 mg p.o. p.r.n. anxiety, mirtazapine 15 mg p.o. q.h.s. These were electronically prescribed to [facility] on [facility] in [place]. He will resume outpatient medicine, testosterone 25 mg topical q.a.m., as prescribed by [facility]. The patient denies nicotine replacement for tobacco cessation. B. Diet: Regular. C. Activities: Ambulation as tolerated. Tobacco cessation assistance declined by the patient. There are no pending labs or diagnostic studies at the time of discharge. D. Followup: The patient will follow up with [facility]. His next appointment is with Sienna Sehr on 12/23/16 at 2:45. He will follow up with [facility] for [facility] for gender reassignment at [facility]. The patient was interested in finding a primary care provider closer to [place], as he has not seen his in [place] for many years. He was given information about Julia Smart, physician referral to set up primary care. HOSPITAL COURSE: A. Reason for admission: The patient presented to the emergency department voluntarily with complaints of increased anxiety and depression along with thoughts of self-harm and suicidal ideation with a plan. The patient had stopped his psychotropic medications within the past week. This was the second admission within 30 days with similar presentation. Since last admission, the patient had participated in counseling at [facility] and was awaiting an assigned psychiatrist. He has followed through on returning to [facility] for hormone therapy for gender reassignment and is now prescribed testosterone. B. Psychiatric treatment rendered: The patient was admitted to adult behavioral services unit on voluntary status. Code status was full. Placed on 15-minute checks for safety. The patient is transgender, female to male, and was given a private room because of this. The patient agreed to reinstate Abilify at 5 mg. It was determined that he likely had akathisia due to the dose of 10 mg. He also agreed to reinstate gabapentin for anxiety, both scheduled and p.r.n. dose. He reported trazodone was ineffective for sleep and agreed to change to mirtazapine to treat depression, anxiety, and sleep. He reported much improvement and stated that he was feeling more rested. The patient was participating in programming and decreased to 30-minute checks and allowed staff pass. He was in behavioral control and medication and group compliant. The patient agreed to brief admission for stabilization and to return to outpatient care. He was safe on all checks. Denied suicidal ideation or urges for self-harm. He reported that current medication measurement was satisfactory in regards to anxiety symptoms. The patient identified friends with whom he could get a ride home, but due to scheduling difference, he opted to use his bus pass back to his apartment in [place]. LEONIDES GODFREY, JACKER FEEDER [id number]/[facility] #: [id number] KATTY
== END 2016-12-18 12:35 | disposition home or self-care (01) | DRG 751 ==
LOC: ED 13:36 → BSU 20:31
PROVIDERS: ADMIT Psychiatry & Neurology Psychiatry; ATTEND Psychiatry & Neurology Psychiatry
DX: F33.1 Major depressive disorder, recurrent, moderate (principal); R45.851 Suicidal ideations; F41.1 Generalized anxiety disorder; K21.9 Gastro-esophageal reflux disease without esophagitis; F64.0 Transsexualism; F17.210 Nicotine dependence, cigarettes, uncomplicated; F60.3 Borderline personality disorder; Z79.890 Hormone replacement therapy; Z79.899 Other long term (current) drug therapy; Z91.040 Latex allergy status; Z91.048 Other nonmedicinal substance allergy status; Z81.8 Family history of other mental and behavioral disorders
CPT/HCPCS: 36415; 80053; 80307; 80320; 80329; 81003; 81015; 84443; 85025; 87086; 90686; 90853; 99222; 99231; 99238; A9270-GY; G0480

== ENCOUNTER 2016-12-31 21:21 | Emergency (ER) | payer MEDICAID ==
[2016-12-31 23:06] LABS: Hematocrit 38 % (35-47); Hemoglobin 12.7 g/dl (12.0-16.0); Mean Corpuscular HGB Conc 33 g/dl (31-36); Mean Corpuscular Hemoglobin 29 pg (27-31); Mean Corpuscular Volume 86 fL (80-97); Mean Platelet Volume 9 um3 (7.4-10.4); Red Blood Count 4.43 10^6/ul (4.0-5.4); Red Cell Distribution Width 13 % (10.5-15); White Blood Count 13.9 10^3/ul (3.5-10.8)
[2016-12-31 23:56] LABS: ALT 13 U/L (7-52); AST 21 U/L (13-39); Albumin 4.3 g/dL (3.2-5.2); Alkaline Phosphatase 115 U/L (34-104); Anion Gap 11 mmol/L (2-11); BUN/Creatinine Ratio 10.1 (8-20); Blood Urea Nitrogen 9 mg/dL (6-24); CO2 Carbon Dioxide 22 mmol/L (22-32); Calcium 9.9 mg/dL (8.6-10.3); Chloride 104 mmol/L (101-111); EGFR Non-African American 80.9 (>60); Glucose 78 mg/dL (70-100); Sodium 137 mmol/L (133-145); Total Protein 7.3 g/dL (6.4-8.9)
[2017-01-01 00:56] LABS: Benzodiazepine Urine Screen None Detected (None Detect)
[2017-01-01 01:38] VITALS: BP 115/71
[2017-01-01 02:21] LABS: Alcohol < 10 mg/dL (<10)
--- NOTE | 2017-01-13 01:36 | ED ---
Jj Wang Angela, scribed for Sergey Jasso MD on 01/01/17 at 0021 . Substance Abuse/Use - HPI Summary HPI Summary: This pt is a 21 y/o female presenting to [facility] c/o not feeling well s/p smoking marijuana. Pt states she had "a crazy weird reaction" today after smoking marijuana. Pt states this has never happened to her before. She additionally c/ o numbness all over and pressure on the right side of her face. Pt notes she feels panicked and paranoid. She reports "everything feels like is vibrating really quickly." She notes she took gabapentin at 1600 today for anxiety. Pt states she has been treated for anxiety all her life. Pt is prescribed gabapentin, 300 mg BID, and 400 mg PRN. Pt was recently admitted on 12/15 for a psychiatric complaint. Currently pt denies SI or HI. PMHx includes depression, anxiety, psychosis. Pt is currently taking new medications, prescribed approximately 20 days ago. These medications include mirtazapine 15 mg, abilify, testosterone 25 mg. Pt is transitioning from female to male. - History Of Current Complaint Chief Complaint: EDSubstanceAbuse Stated Complaint: OVERDOSE Hx Obtained From: Patient Hx Last Menstrual Period: 1 month ago, unsure of date Onset/Duration of Drug/ETOH Abuse: Hours Ingestion History: Type/Name Of Drug - marijuana Character: Anxious, Other - panicked, paranoid Aggravating Factor(s): Nothing Alleviating Factor(s): Nothing Associated Signs And Symptoms: Other: - POS: numbness all over, pressure on the right side of her face. NEG: SI or HI Related Hx: Prior Psych Admission - on 12/15 - Allergies/Home Medications Allergies/Adverse Reactions: Allergies Allergy/AdvReac Type Severity Reaction Status Date / Time Latex Allergy Rash Verified 12/15/16 22:00 Perfume Allergy Difficulty Verified 12/15/16 22:00 Breathing/Wheezing PMH/Surg Hx/FS Hx/Imm Hx Endocrine/Hematology History: Denies: Hx Anticoagulant Therapy, Hx Diabetes, Hx Thyroid Disease Cardiovascular History: Denies: Hx Congestive Heart Failure, Hx Hypertension Respiratory History: Reports: Hx Asthma, Hx Seasonal Allergies Denies: Hx Chronic Obstructive Pulmonary Disease (COPD) GI History: Reports: Hx Gastroesophageal Reflux Disease Denies: Hx Ulcer History: Reports: Other Problems/Disorders - Chronic UTI Denies: Hx Renal Disease Sensory History: Denies: Hx Contacts or Glasses, Hx Hearing Aid Opthamlomology History: Denies: Hx Contacts or Glasses Psychiatric History: Reports: Hx Anxiety, Hx Eating Disorder - Reports hx anorexia, Hx Depression, Hx Inpatient Treatment, Hx Community Mental Health Tx, Hx Suicide Attempt - past attempts, Other Psychiatric Issues/Disorders - Borderline personality Denies: Hx Attention Deficit Hyperactivity Disorder, Hx Panic Disorder, Hx Post Traumatic Stress Disorder, Hx Schizophrenia, Hx Bipolar Disorder, Hx of Violent Episodes Against Others, Hx Substance Abuse Infectious Disease History: No Infectious Disease History: Denies: Hx Clostridium Difficile, Hx Hepatitis, Hx Human Immunodeficiency Virus (HIV), Hx of Known/Suspected MRSA, Hx Shingles, Hx Tuberculosis, Hx Known/ Suspected VRE, Hx Known/Suspected VRSA, History Other Infectious Disease, Traveled Outside the [place] in Last 30 Days - Family History Known Family History: Positive: Diabetes Negative: Cardiac Disease, Hypertension Family History: Family history of SLE, multiple sclerosis, temporal lobe epilepsy, Graves' disease, and trigeminal neuralgia in mother in addition to borderline personality disorder. Maternal grandmother suffers from depression, chronic fatigue syndrome, and Marvin's disease. - Social History Alcohol Use: Rare Hx Substance Use: No Substance Use Type: Reports: Marijuana Substance Use Comment - Amount & Last Used: pt reports using marijuana about once a month, last used 3 weeks ago Hx Tobacco Use: Yes Smoking Status (MU): Light Every Day Tobacco Smoker Type: Cigarettes Amount Used/How Often: 1/2 pack per day Length of Time of Smoking/Using Tobacco: few years Have You Smoked in the Last Year: Yes Review of Systems Negative: Fever, Chills Positive: Other - pressure on right side of face Positive: Numbness - all over Psychological: Other - panicked, paranoid, "everything vibrating really quickly " Positive: Anxious. Negative: Other - SI or HI All Other Systems Reviewed And Are Negative: Yes Physical Exam - Summary Physical Exam Summary: Appearance: Agitated and anxious without dyspnea. Pt is transgender. Skin: Warm, Dry, No rash Eyes: Normal, PERR to accomodation, EOMI, sclera anicteric ENT: Normal Neck: Supple, nontender Respiratory: Clear to auscultation Cardiovascular: S1, S2, no murmur, no rub, no gallop Abdomen: Soft, nontender, no organomegaly Bowel sounds: Present Musculoskeletal: Normal, Strength/ROM Intact, no edema, pulses symmetrical Neurological: Normal, A&Ox3, cranial nerves II-XII wnl, follows commands, gait not tested, sensation intact to pin and light touch Psychiatric: agitated and anxious, dressed appropriately, judgment intact Triage Information Reviewed: Yes Vital Signs On Initial Exam: Initial Vitals Temp Pulse Resp BP Pulse Ox 99.2 F 113 20 132/87 97 12/31/16 21:30 12/31/16 21:30 12/31/16 21:30 12/31/16 21:30 12/31/16 21:30 Vital Signs Reviewed: Yes - Francisco Coma Scale Coma Scale Total: 15 Diagnostics - Vital Signs Vital Signs Temp Pulse Resp BP Pulse Ox 12/31/16 21:30 99.2 F 113 20 132/87 97 - Laboratory Result Diagrams: 12/31/16 22:59 12/31/16 22:59 Lab Statement: Any lab studies that have been ordered have been reviewed, and results considered in the medical decision making process. - EKG 2256 Cardiac Rate: NL EKG Rhythm: Sinus Rhythm - 94 bpm EKG Interpretation: normal EKG Course/Dx - Course Assessment/Plan: Pt is a 21 y/o female who presents to the ED for not feeling well s/p smoking marijuana. Pt has history of psychosis. Has had recent psychiatric hospitlalization. Pt denies SI or HI. Pt is medically cleared at 0021. Pt is awaiting MHE. Pt was evaluated by Dr. Reardon, who recommends discharge. Pt will be discharged in stable condition. - Diagnoses Provider Diagnoses: Cannabis abuse, Polysubstance abuse Discharge - Discharge Plan Condition: Stable Disposition: HOME Patient Education Materials: Cannabis Abuse (ED), Polysubstance Abuse (ED) Referrals: [facility] [Outside] Stefania Crowder MD [Primary Care Provider] - Additional Instructions: Per completion of a mental health evaluation, you are cleared for release and do not require inpatient psychiatric hospitalization at this time. Please go to nearest emergency room or call 911 if safety concerns arise or condition worsens. IMPORTANT PHONE NUMBERS: [facility] Behavioral Services Unit: [facility] Emergency Room Flex Unit: Suicide Prevention and Crisis Services: National Suicide Prevention Lifeline: (498) 262-EEGS (9854) [facility]: [facility] Association: [facility]: Alcoholics Anonymous: Narcotics Anonymous: Alcohol and Drug [facility]: [facility] ([facility]) Outpatient Services: [facility] Recovery: [phone] Department of [employer] Person: [place] [facility] [place]: [facility] Police: [facility] Sheriff: [place] [employer] Department: OUTPATIENT SERVICES You have been referred to [facility]. It is our recommendation that you call [facility] to confirm your previously scheduled appointment with Dot Sher on Wednesday, January 06 2017, as you indicated during your evaluation. It is our recommendation that you inform Dot of your concerns related to securing an upcoming appointment with the psychiatrist for medication management. If you require further assistance connecting to outpatient providers, please contact our Mental Health Unit at . No changes or adjustments were made to your medication regimen during this evaluation. Continue medications as prescribed by your outpatient providers. [facility] [address], [place] [address] The documentation as recorded by the Jj morley Angela accurately reflects the service I personally performed and the decisions made by me, Sergey Jasso MD.
== END 2017-01-01 03:12 | disposition home or self-care (01) ==
LOC: ED 21:21
DX: F12.10 Cannabis abuse, uncomplicated (principal); F19.10 Other psychoactive substance abuse, uncomplicated
CPT/HCPCS: 36415; 80053; 80307; 80320; 85025; 93005; 99284; G0480

== ENCOUNTER 2017-02-12 16:38 | Emergency (ER) | payer MEDICAID, OTHER ==
--- NOTE | 2017-02-12 18:10 | ED ---
Papo Wang Stephanie, scribed for Ghassan Sommers MD on 02/12/17 at 1707 . Respiratory - HPI Summary HPI Summary: Pt is a 21 y/o F presenting to the ED with cough that began about 1 week ago. Pt is transgender (he/him), takes testosterone, and prefers the name Aditya. Pt has been exposed to a friend ho has tested positive for pertussis. Contact with ill friend occurred before and after diagnosis. Symptoms include cough and difficulty swallowing. Pt denies nasal discharge. - History of Current Complaint Chief Complaint: EDGeneral Stated Complaint: COUGH CONGESTIONS Time Seen by Provider: 02/12/17 16:54 Hx Obtained From: Patient Onset/Duration: Lasting Weeks - 1, Still Present Timing: Constant Pain Intensity: 0 Character: Cough (Nonproductive) Aggravating Factor(s): Nothing Alleviating Factor(s): Nothing - Allergy/Home Medications Allergies/Adverse Reactions: Allergies Allergy/AdvReac Type Severity Reaction Status Date / Time Latex Allergy Rash Verified 02/12/17 16:54 Perfume Allergy Difficulty Verified 02/12/17 16:54 Breathing/Wheezing Home Medications: Home Medications Venlafaxine EXT RELEASE CAP* [Effexor Xr CAP*] 150 mg PO DAILY 02/12/17 [ History Confirmed 02/12/17] traZODone TAB* [Desyrel TAB*] 50 mg PO BEDTIME 02/12/17 [History Confirmed 02/12] PMH/Surg Hx/FS Hx/Imm Hx Endocrine/Hematology History: Denies: Hx Anticoagulant Therapy, Hx Diabetes, Hx Thyroid Disease Cardiovascular History: Denies: Hx Congestive Heart Failure, Hx Hypertension Respiratory History: Reports: Hx Asthma, Hx Seasonal Allergies Denies: Hx Chronic Obstructive Pulmonary Disease (COPD) GI History: Reports: Hx Gastroesophageal Reflux Disease Denies: Hx Ulcer History: Reports: Other Problems/Disorders - Chronic UTI Denies: Hx Renal Disease Sensory History: Denies: Hx Contacts or Glasses, Hx Hearing Aid Opthamlomology History: Denies: Hx Contacts or Glasses Psychiatric History: Reports: Hx Anxiety, Hx Eating Disorder - Reports hx anorexia, Hx Depression, Hx Inpatient Treatment, Hx Community Mental Health Tx, Hx Suicide Attempt - past attempts, Other Psychiatric Issues/Disorders - Borderline personality Denies: Hx Attention Deficit Hyperactivity Disorder, Hx Panic Disorder, Hx Post Traumatic Stress Disorder, Hx Schizophrenia, Hx Bipolar Disorder, Hx of Violent Episodes Against Others, Hx Substance Abuse Infectious Disease History: No Infectious Disease History: Denies: Hx Clostridium Difficile, Hx Hepatitis, Hx Human Immunodeficiency Virus (HIV), Hx of Known/Suspected MRSA, Hx Shingles, Hx Tuberculosis, Hx Known/ Suspected VRE, Hx Known/Suspected VRSA, History Other Infectious Disease, Traveled Outside the [place] in Last 30 Days - Family History Known Family History: Positive: Diabetes Negative: Cardiac Disease, Hypertension Family History: Family history of SLE, multiple sclerosis, temporal lobe epilepsy, Graves' disease, and trigeminal neuralgia in mother in addition to borderline personality disorder. Maternal grandmother suffers from depression, chronic fatigue syndrome, and Marvin's disease. - Social History Alcohol Use: Occasionally Hx Substance Use: No Substance Use Type: Reports: Marijuana Substance Use Comment - Amount & Last Used: pt reports using marijuana "occassionally" Hx Tobacco Use: Yes Smoking Status (MU): Heavy Every Day Tobacco Smoker Type: Cigarettes Amount Used/How Often: 1/2 pack per day Length of Time of Smoking/Using Tobacco: few years Have You Smoked in the Last Year: Yes Review of Systems Negative: Fever Positive: Other - difficulty swallowing. Negative: Nasal Discharge Positive: Cough All Other Systems Reviewed And Are Negative: Yes Physical Exam - Summary Physical Exam Summary: Appearance: Well appearing, no pain distress Skin: warm, dry, reflects adequate perfusion Head/face: normal Eyes: EOMI, BRANT ENT: normal Neck: supple, non-tender Respiratory: CTA, breath sounds present Cardiovascular: RRR, pulses symmetrical Abdomen: non-tender, soft Bowel: present Musculoskeletal: normal, strength/ROM intact Neuro: normal, sensory motor intact, A&Ox3 Triage Information Reviewed: Yes Vital Signs On Initial Exam: Initial Vitals Temp Pulse Resp BP Pulse Ox 98.9 F 97 16 119/73 96 02/12/17 16:44 02/12/17 16:44 02/12/17 16:44 02/12/17 16:44 02/12/17 16:44 Vital Signs Reviewed: Yes Diagnostics - Vital Signs Vital Signs Temp Pulse Resp BP Pulse Ox 02/12/17 16:54 97 96 02/12/17 16:52 114/82 02/12/17 16:44 98.9 F 97 16 119/73 96 - Laboratory Lab Statement: Any lab studies that have been ordered have been reviewed, and results considered in the medical decision making process. Disposition - Course Course Of Treatment: pt with close exposure to pertussis and is now with minor cough. Start zpak. Pertussis swab taken. - Diagnoses Provider Diagnoses: Cough, Pertussis exposure Discharge - Discharge Plan Condition: Good Disposition: HOME Prescriptions: Azithromycin TAB* [Zithromax TAB (Z-CHELA) 250 mg #6 tabs] 2 tab PO .TODAY, THEN 1 DAILY #1 chela Patient Education Materials: Pertussis (ED) Forms: *Work Release Referrals: Stefania Crowder MD [Primary Care Provider] - Additional Instructions: we will call and inform you if the pertussis test was positive. Maintain your distance from unvaccinated individuals. Return with difficulty breathing, worse or other concerns as discussed. Physician referral form provided for primary doctor. The documentation as recorded by the Papo morley Stephanie accurately reflects the service I personally performed and the decisions made by , Ghassan Sommers MD.
[2017-02-12 19:14] VITALS: BP 119/76
--- NOTE | 2017-02-12 19:14 | ED ---
I, Audrey Barros, scribed for Ghassan Sommers MD on 02/12/17 at 1914 . Course/Dx - Course Course Of Treatment: pt with close exposure to pertussis and is now with minor cough. Start zpak. Pertussis swab taken. - Diagnoses Provider Diagnoses: Cough, Pertussis exposure The documentation as recorded by the sabineibPapo wooten Stephanie accurately reflects the service I personally performed and the decisions made by , Ghassan Sommers MD.
== END 2017-02-12 19:13 | disposition home or self-care (01) ==
LOC: ED 16:38
DX: R05 Cough (principal); F17.210 Nicotine dependence, cigarettes, uncomplicated; Z20.818 Contact with and (suspected) exposure to other bacterial communicable diseases
CPT/HCPCS: 87798; 99282

== ENCOUNTER 2017-02-22 20:55 | Inpatient (IN) | payer MEDICAID, OTHER ==
[2017-02-22] MEDS ORDERED: NS 0.9% 1000 ML* 2,000 ML IV ONE (21:07)
[2017-02-22 21:30] LABS: ABS Basophils 0.1 10^3/ul (0-0.2); ABS Eosinophils 0 10^3/ul (0-0.6); ABS Lymphocytes 2.4 10^3/ul (1.0-4.8); ABS Monocytes 0.6 10^3/ul (0-0.8); ABS Neutrophils 8.4 10^3/ul (1.5-7.7); ABS Nucleated RBC 0.01 10^3/ul; Eosinophil % 0.1 % (0-6); Hematocrit 40 % (35-47); Hemoglobin 13.8 g/dl (12.0-16.0); Lymphocyte % 20.8 % (25-47); Mean Corpuscular HGB Conc 34 g/dl (31-36); Mean Corpuscular Hemoglobin 29 pg (27-31); Mean Corpuscular Volume 85 fL (80-97); Mean Platelet Volume 9 um3 (7.4-10.4); Nucleated Red Blood Cells % 0.1; Platelet Count 355 10^3/ul (150-450); Red Blood Count 4.72 10^6/ul (4.0-5.4); Red Cell Distribution Width 14 % (10.5-15); White Blood Count 11.4 10^3/ul (3.5-10.8)
[2017-02-22 21:42] LABS: EGFR Non-African American 90.1 (>60)
[2017-02-22] MEDS ORDERED: Charcoal ACTIVATED* 25 GM/120 ML BTL PO ONE (21:42)
--- NOTE | 2017-02-22 21:44 | ED ---
Tripp Wang Julia, scribed for Ambrosio Damico MD on 02/22/17 at 2114 . Psychiatric Complaint - HPI Summary HPI Summary: This patient is a 21 year old F presenting to [facility] due SI related overdose. Patient reports taking 450mg of Benadryl around 18:00 today. Patient states feeling weird, nauseous, and dizzy. Patient denies pain. - History Of Current Complaint Chief Complaint: EDOverdose Time Seen by Provider: 02/22/17 20:59 Hx Obtained From: Patient Hx Last Menstrual Period: 1 month ago, unsure of date Character: Depressed Aggravating Factor(s): Nothing Alleviating Factor(s): Nothing Has Suicidal: Reports: Thoughts, With A Plan, Demonstrates Gesture - Allergies/Home Medications Allergies/Adverse Reactions: Allergies Allergy/AdvReac Type Severity Reaction Status Date / Time Latex Allergy Rash Verified 02/12/17 16:54 Perfume Allergy Difficulty Verified 02/12/17 16:54 Breathing/Wheezing PMH/Surg Hx/FS Hx/Imm Hx Endocrine/Hematology History: Denies: Hx Anticoagulant Therapy, Hx Diabetes, Hx Thyroid Disease Cardiovascular History: Denies: Hx Congestive Heart Failure, Hx Hypertension Respiratory History: Reports: Hx Asthma, Hx Seasonal Allergies Denies: Hx Chronic Obstructive Pulmonary Disease (COPD) GI History: Reports: Hx Gastroesophageal Reflux Disease Denies: Hx Ulcer History: Reports: Other Problems/Disorders - Chronic UTI Denies: Hx Renal Disease Sensory History: Denies: Hx Contacts or Glasses, Hx Hearing Aid Opthamlomology History: Denies: Hx Contacts or Glasses Psychiatric History: Reports: Hx Anxiety, Hx Eating Disorder - Reports hx anorexia, Hx Depression, Hx Inpatient Treatment, Hx Community Mental Health Tx, Hx Suicide Attempt - past attempts, Other Psychiatric Issues/Disorders - Borderline personality Denies: Hx Attention Deficit Hyperactivity Disorder, Hx Panic Disorder, Hx Post Traumatic Stress Disorder, Hx Schizophrenia, Hx Bipolar Disorder, Hx of Violent Episodes Against Others, Hx Substance Abuse Infectious Disease History: No Infectious Disease History: Denies: Hx Clostridium Difficile, Hx Hepatitis, Hx Human Immunodeficiency Virus (HIV), Hx of Known/Suspected MRSA, Hx Shingles, Hx Tuberculosis, Hx Known/ Suspected VRE, Hx Known/Suspected VRSA, History Other Infectious Disease, Traveled Outside the [place] in Last 30 Days - Family History Known Family History: Positive: Diabetes Negative: Cardiac Disease, Hypertension Family History: Family history of SLE, multiple sclerosis, temporal lobe epilepsy, Graves' disease, and trigeminal neuralgia in mother in addition to borderline personality disorder. Maternal grandmother suffers from depression, chronic fatigue syndrome, and Marvin's disease. - Social History Alcohol Use: Occasionally Hx Substance Use: Yes Substance Use Type: Reports: Marijuana Substance Use Comment - Amount & Last Used: pt reports using marijuana "occassionally" Hx Tobacco Use: Yes Smoking Status (MU): Heavy Every Day Tobacco Smoker Type: Cigarettes Amount Used/How Often: 1/2 pack per day Length of Time of Smoking/Using Tobacco: few years Have You Smoked in the Last Year: Yes Review of Systems Positive: Other - negative - pain. Negative: Fever Positive: Other - SI related OD All Other Systems Reviewed And Are Negative: Yes Physical Exam - Summary Physical Exam Summary: General: well-appearing, no pain distress Skin: warm, color reflects adequate perfusion, dry Head: normal Eyes: EOMI, Pupils are 5mm and minimally reactive ENT: normal Neck: supple, nontender Respiratory: CTA, breath sounds present Cardiovascular: Tacycardic with regular rhythm Abdomen: soft, nontender Bowel: present Musculoskeletal: normal, strength/ROM intact Neurological: normal, sensory/motor intact, A&O x3 Psychological: Hyper-alert Triage Information Reviewed: Yes Vital Signs On Initial Exam: Initial Vitals Temp Pulse Resp BP Pulse Ox 99.4 F 110 28 127/88 96 02/22/17 21:00 02/22/17 21:00 02/22/17 21:00 02/22/17 21:00 02/22/17 21:00 Vital Signs Reviewed: Yes Diagnostics - Vital Signs Vital Signs Temp Pulse Resp BP Pulse Ox 02/22/17 21:03 112 24 96 02/22/17 21:01 127/88 02/22/17 21:00 99.4 F 110 28 127/88 96 - Laboratory Lab Results: Lab Results 02/22/17 Range/Units 21:14 Lactic Acid 1.3 (0.5-2.0) mmol/L Lab Statement: Any lab studies that have been ordered have been reviewed, and results considered in the medical decision making process. - EKG 21:17 Cardiac Rate: NL EKG Rhythm: Sinus Rhythm - at 96 BPM Ectopy: None EKG Interpretation: reveals borderline T abnormalities in the lateral leads Course/Dx - Course Course Of Treatment: POISON CONTROL RECOMMENDS 6 HOUR OBSERVATION AND CHARCOAL. MHE PENDING AT SHIFT CHANGE. - Differential Dx/Clinical Impression Provider Diagnosis: Mental health problem, Overdose Discharge - Discharge Plan Condition: Stable Disposition: OTHER Discharge Disposition Comment: . Referrals: Stefania Crowder MD [Primary Care Provider] - The documentation as recorded by the Tripp morley Julia accurately reflects the service I personally performed and the decisions made by me, Ambrosio Damico MD.
[2017-02-23 01:09] LABS: Urine Appearance Clear; Urine Blood Negative (Negative); Urine Color Yellow; Urine Ketones Trace (Negative); Urine Protein Negative (Negative); Urine Specific Gravity 1.009 (1.010-1.030); Urine Urobilinogen Negative (Negative)
[2017-02-23] MEDS: Acetaminophen TAB* 325 MG PO PRN (05:55)
[2017-02-23] MEDS ORDERED: Acetaminophen TAB* 325 MG ONE (05:57)
[2017-02-23] MEDS: Azithromycin TAB* 250 MG PO SCH (11:26)
[2017-02-23] MEDS: Venlafaxine EXT RELEASE CAP* 75 MG PO SCH (11:27)
[2017-02-23] MEDS: Multivitamins/Minerals TAB PO SCH (11:27)
[2017-02-23] MEDS ORDERED: TESTOSTERONE 25 MG TOPICAL SCH (14:00)
[2017-02-23] MEDS ORDERED: Albuterol HFA INHALER* 8 gm MDI INH PRN (14:06)
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
[2017-02-23] MEDS: CMCS: TESTOSTERONE GEL 25 MG (NF) IN 2.5 GM SIZE PACKET TOPICAL SCH (17:29)
[2017-02-23] MEDS: hydrOXYzine HCL TAB* 50 MG PO PRN (19:48)
[2017-02-23] MEDS: ARIPiprazole TAB* 5 MG PO SCH (21:33)
[2017-02-23] MEDS: traZODone TAB* 50 MG TAB PO SCH (21:33)
[2017-02-24] MEDS: Azithromycin TAB* 250 MG PO SCH (07:51)
[2017-02-24] MEDS: Venlafaxine EXT RELEASE CAP* 75 MG PO SCH (07:51)
[2017-02-24] MEDS: Multivitamins/Minerals TAB PO SCH (07:52)
[2017-02-24] MEDS: CMCS: TESTOSTERONE GEL 25 MG (NF) IN 2.5 GM SIZE PACKET TOPICAL SCH (10:00)
[2017-02-24] MEDS: hydrOXYzine HCL TAB* 50 MG PO PRN ×2 (10:18→17:23)
[2017-02-24] MEDS: Acetaminophen TAB* 325 MG PO PRN ×2 (10:18→20:25)
--- NOTE | 2017-02-24 11:26 | PN ---
MHU: Group Therapy Note - Service Type Service Type: 29653 Group Psychotherapy - Cognitive Behavioral Group Therapy ( CBT):Patient was attentive and participatory in CBT programming this morning, and remained in good behavioral control. Patient expressed positive insights regarding relevant treatment interventions and goals.
--- NOTE | 2017-02-24 13:37 | PN ---
Subjective - Subjective Date of Service: 02/24/17 Service Type: 13617 Hosp care 25 min moderate complexity Subjective: Aditya remains anxious and depressed. He feels like the recent loss of two significant romantic relationships have made him feel rudderless and lost. "If I'm not with somebody that I can talk to 24 hours a day I feel like I can't control the anxiety." He requests use of his cellphone on the unit to look at texts. We also discuss other stressors, such as working at [employer] and not being accepted as transgender by his mother and stepfather. We talk about the diagnosis of borderline PD and Aditya admits that he has strong features of this, including issues related to abandonment and an incomplete sense of self. He is educated about the limitations of medications for this condition, as he is still inquiring about the discontinuation of gabapentin, mirtazapine and clonazepam. "The Klonopin is the big one. I've been using that for several years and wouldn't want to be without it." I gently confront him with a copy of his [facility] controlled prescription database sheet, which indicates that he got 30-day supplies of clonazepam only twice during 2016, in February and then December. This clinician has left a voicemail for outpatient psychiatrist, Alka Gross, at [facility], but have not yet heard back. Aditya appropriately requests outside, computer and comfort room privileges. He denies active SI. Objective - Appearance Appearance: Well Developed/Nourished Dysmorphic Features: No Hygiene: Normal Grooming: Well Kept - Behavior Psychomotor Activities: Normal Exhibits Abnormal Movement: No - Attitude and Relatedness Attitude and Relatedness: Cooperative Eye Contact: Fair - Speech Quality: Unpressured Latencies: Normal Quantity: Appropriate - Mood Patient's Decription of Mood: "Anxious" - Affect Observed Affect: Fair Affect Consistent with: Euthymia - Thought Process Patient's Thought Process: Coherent Thought Content: No Passive Wish, No Suicidal Planning, No Homicidal Ideation, No Paranoid Ideation - Sensorium Experiencing Hallucinations: No, Sensorium is Clear Type of Hallucinations: Visual: No, Auditory: No, Command: No - Level of Consciousness Level of Consciousness: Alert Orientation: Yes Intact, Yes Orientated to Time, Yes Orientated to Place, Yes Orientated to Person - Impulse Control Impulse Control: Tenuous - Insight and Judgement Insight and Judgement: Fair - Group Participation Particating in Group Activities: Yes - Medication Management Medication Management Adherence: Yes Assessment - Assessment Merits Inpatient Hospitalization: Consolidate Improvements, Pending Safe DC Plan Inpatient DSM-IV Dx: Unspecified Mood DO Clinical Impression: 21 y.o. single, female to male transgendered individual with a history of mood instability, borderline PD and early life trauma admitted voluntarily following an incident in which he purposely overdosed on approximately 450mg or oral OTC Benadryl in a suicide attempt in the setting of multiple relationship stressors. Plan - Plan Treatment Plan: Name: BEV GORDON Birthdate: 1995 [id number] We have resumed treatment with venlafaxine XR, trazodone and aripiprazole but are holding gabapentin, mirtazapine and clonazepam due to fears of polypharmacy. Continue to encourage milieu participation and await collateral contact with [facility]. Continued Medication Management: Continue Outpt Medication Medications: Current Medications Acetaminophen (Tylenol Tab*) 650 mg PO Q4H PRN PRN Reason: PAIN OR TEMP>101 Last Admin: 02/24/17 10:18 Dose: 650 mg Al Hydrox/Mg Hydrox/Simethicone (Maalox Plus*) 30 ml PO Q4H PRN PRN Reason: INDIGESTION Albuterol (Ventolin Hfa Inhaler*) 2 puff INH Q2H PRN PRN Reason: SOB/WHEEZING Aripiprazole (Abilify Tab*) 5 mg PO BEDTIME [facility] Last Admin: 02/23/17 21:33 Dose: 5 mg Azithromycin (Zithromax Tab*) 500 mg PO QAM [facility] Last Admin: 02/24/17 07:51 Dose: 500 mg Hydroxyzine HCl (Atarax Tab*) 50 mg PO Q6H PRN PRN Reason: ANXIETY Last Admin: 02/24/17 10:18 Dose: 50 mg Multivitamins/Minerals (Theragran/Minerals Tab*) 1 tab PO DAILY [facility] Last Admin: 02/24/17 07:52 Dose: 1 tab Testosterone (Testosterone Gel 25 Mg/2.5 G) 25 mg TOPICAL DAILY [facility] Last Admin: 02/24/17 10:00 Dose: 25 mg Trazodone HCl (Desyrel Tab*) 50 mg PO BEDTIME [facility] Last Admin: 02/23/17 21:33 Dose: 50 mg Venlafaxine HCl (Effexor Xr Cap*) 150 mg PO QAM [facility] Last Admin: 02/24/17 07:51 Dose: 150 mg - Discharge Plan Discharge Plan: Inpatient Hospitalization
[2017-02-24] MEDS: Al Hydrox/Mg Hydrox/Simet LIQ* 30 ML UDC PO PRN (19:51)
[2017-02-24] MEDS: ARIPiprazole TAB* 5 MG PO SCH (20:25)
[2017-02-24] MEDS: traZODone TAB* 50 MG TAB PO SCH (20:25)
[2017-02-25] MEDS: hydrOXYzine HCL TAB* 50 MG PO PRN ×3 (01:49→21:40)
[2017-02-25] MEDS: Al Hydrox/Mg Hydrox/Simet LIQ* 30 ML UDC PO PRN (01:49)
[2017-02-25] MEDS: Multivitamins/Minerals TAB PO SCH (09:12)
[2017-02-25] MEDS: Venlafaxine EXT RELEASE CAP* 75 MG PO SCH (09:12)
[2017-02-25] MEDS ORDERED: Ondansetron TAB* 4 MG PO PRN (11:27)
--- NOTE | 2017-02-25 11:39 | PN ---
Subjective - Subjective Date of Service: 02/25/17 Service Type: 08703 Hosp care 15 min low complexity Subjective: The patient continues to deny SI. He had severe nausea last night, which he attributes to his antibiotic, causing lack of appetite and emesis. He feels slightly better today but is still avoiding food intake for fear of vomiting. Aditya is tolerating his medications well and states that he would like to target tomorrow for discharge. This clinician has not heard back from [facility] but I understand that DAKOTA Hidalgo spoke with Aditya Wright's therapist, who supported the idea of [facility] for the patient. Objective - Appearance Appearance: Well Developed/Nourished Dysmorphic Features: No Hygiene: Normal Grooming: Well Kept - Behavior Psychomotor Activities: Normal Exhibits Abnormal Movement: No - Attitude and Relatedness Attitude and Relatedness: Cooperative Eye Contact: Good - Speech Quality: Unpressured Latencies: Normal Quantity: Appropriate - Mood Patient's Decription of Mood: "Fine" - Affect Observed Affect: Fair Affect Consistent with: Euthymia - Thought Process Patient's Thought Process: Coherent Thought Content: No Passive Wish, No Suicidal Planning, No Homicidal Ideation, No Paranoid Ideation - Sensorium Experiencing Hallucinations: No, Sensorium is Clear Type of Hallucinations: Visual: No, Auditory: No, Command: No - Level of Consciousness Level of Consciousness: Alert Orientation: Yes Intact, Yes Orientated to Time, Yes Orientated to Place, Yes Orientated to Person - Impulse Control Impulse Control: Tenuous - Insight and Judgement Insight and Judgement: Fair - Group Participation Particating in Group Activities: Yes - Medication Management Medication Management Adherence: Yes Assessment - Assessment Merits Inpatient Hospitalization: Consolidate Improvements, Pending Safe DC Plan Inpatient DSM-IV Dx: Unspecified Mood DO Clinical Impression: 21 y.o. single, female to male transgendered individual with a history of mood instability, borderline PD and early life trauma admitted voluntarily following an incident in which he purposely overdosed on approximately 450mg or oral OTC Benadryl in a suicide attempt in the setting of multiple relationship stressors. Plan - Plan Treatment Plan: Name: BEV GORDON Birthdate: 1995 [id number] We have resumed treatment with venlafaxine XR, trazodone and aripiprazole but are holding gabapentin, mirtazapine and clonazepam due to fears of polypharmacy. Continue to encourage milieu participation. Patient will likely be discharged tomorrow and has follow up at [facility] on March 02. I will d/c antibiotic and start zofran prn for nausea. Continued Medication Management: Continue Outpt Medication Medications: Current Medications Acetaminophen (Tylenol Tab*) 650 mg PO Q4H PRN PRN Reason: PAIN OR TEMP>101 Last Admin: 02/24/17 20:25 Dose: 650 mg Al Hydrox/Mg Hydrox/Simethicone (Maalox Plus*) 30 ml PO Q4H PRN PRN Reason: INDIGESTION Last Admin: 02/24/17 19:51 Dose: 30 ml Albuterol (Ventolin Hfa Inhaler*) 2 puff INH Q2H PRN PRN Reason: SOB/WHEEZING Aripiprazole (Abilify Tab*) 5 mg PO BEDTIME [facility] Last Admin: 02/24/17 20:25 Dose: 5 mg Hydroxyzine HCl (Atarax Tab*) 50 mg PO Q6H PRN PRN Reason: ANXIETY Last Admin: 02/24/17 17:23 Dose: 50 mg Multivitamins/Minerals (Theragran/Minerals Tab*) 1 tab PO DAILY [facility] Last Admin: 02/25/17 09:12 Dose: 1 tab Ondansetron HCl (Zofran Tab*) 4 mg PO Q6H PRN PRN Reason: NAUSEA Testosterone (Testosterone Gel 25 Mg/2.5 G) 25 mg TOPICAL DAILY [facility] Last Admin: 02/24/17 10:00 Dose: 25 mg Trazodone HCl (Desyrel Tab*) 50 mg PO BEDTIME [facility] Last Admin: 02/24/17 20:25 Dose: 50 mg Venlafaxine HCl (Effexor Xr Cap*) 150 mg PO QAM [facility] Last Admin: 02/25/17 09:12 Dose: 150 mg - Discharge Plan Discharge Plan: Inpatient Hospitalization
[2017-02-25] MEDS: CMCS: TESTOSTERONE GEL 25 MG (NF) IN 2.5 GM SIZE PACKET TOPICAL SCH (13:14)
[2017-02-25] MEDS: Azithromycin TAB* 250 MG PO SCH (13:41)
[2017-02-25] MEDS: traZODone TAB* 50 MG TAB PO SCH (21:40)
[2017-02-25] MEDS: ARIPiprazole TAB* 5 MG PO SCH (21:40)
--- NOTE | 2017-02-25 22:13 | ED ---
Calli Wang Gabriel, scribed for Chato Kothari MD on 02/23/17 at 0344 . Progress - Progress Note Progress Note: The patient is alert, oriented, and awake, with no complaints. She took 16 pills of Benadryl because she wanted to . Patient is medically cleared to be evaluated by mental health.After the MHE the psychiatrist has decided to admit the patient with depression at 0444. Course/Dx - Course Course Of Treatment: POISON CONTROL RECOMMENDS 6 HOUR OBSERVATION AND CHARCOAL. MHE PENDING AT SHIFT CHANGE. - Diagnoses Provider Diagnoses: Mental health problem, Overdose, Suicidal ideation, Depression The documentation as recorded by the Calli morley Gabriel accurately reflects the service I personally performed and the decisions made by , Chato Kothari MD.
[2017-02-26 08:19] VITALS: BP 108/55
[2017-02-26] MEDS: Venlafaxine EXT RELEASE CAP* 75 MG PO SCH (10:02)
[2017-02-26] MEDS: Multivitamins/Minerals TAB PO SCH (10:02)
[2017-02-26] MEDS: CMCS: TESTOSTERONE GEL 25 MG (NF) IN 2.5 GM SIZE PACKET TOPICAL SCH (10:03)
[2017-02-26] MEDS: hydrOXYzine HCL TAB* 50 MG PO PRN (12:54)
[2017-02-26] MEDS ORDERED: Nicotine GUM* 2 MG PO PRN (14:26)
--- NOTE | 2017-02-27 12:46 | DS ---
DISCHARGE SUMMARY: DATE OF ADMISSION: 02/23/17 DATE OF DISCHARGE: 02/26/17. DISCHARGE DIAGNOSES: Are as follows: [place] I: Unspecified depressive disorder, unspecified anxiety disorder, anorexia nervosa by history, gender dysphoric disorder. [place] II: Borderline personality disorder. [place] III: Gastroesophageal reflux disease, acute urinary tract infection, chronic idiopathic urticaria, asthma. [place] IV: Severe housing and occupational stressors. [place] V: At the time of admission was 35 and at the time of discharge is 60. CONDITION AT THE TIME OF DISCHARGE: Stable. The patient is calm and cooperative. He has been safe on all checks. He is appropriately requesting discharge. He has shown significant improvement here. As a safety plan, He indicates that over the weekend he can contact a friend who lives 4 doors down from his in [place] neighborhood [facility]. He is also agreeable with outpatient followup at [facility] where he has both a prescribing and a psychotherapeutic clinician. His affect is significantly improved from the time of admission. He is tolerating his medications well and he is franko for safety, denying suicidal or homicidal ideations. MENTAL STATUS EXAM: The patient is a pleasant young, white, transgender female to male individual who still looks mostly feminine, although dressed as a boy. My understanding is that he is wearing a binder to reduce the appearance of breasts. He is clean and well-groomed. He has dark brown hair. He is calm, cooperative, easy to establish a rapport with. Speech has a normal rate, tone and volume. Mood appears to be euthymic with a full affect. Thought process is linear and goal directed. Thought content is significant for his desire to be discharged from the hospital. He steadfastly denies suicidal or homicidal ideations. He denies auditory or visual hallucinations. Insight and judgment are fair given his willingness to follow up in the community after discharge. Cognitively, he is awake and alert with what would appear to be an average intellect. DISCHARGE INSTRUCTIONS: To the patient are as follows: A. Medications: He is takin. Trazodone 50 mg p.o. q.h.s. 2. Effexor XR 150 mg p.o. daily. 3. Albuterol 2 puffs inhaled every 4 hours p.r.n. for wheezing. 4. Testosterone 2.5 mg topically daily. 5. Abilify 5 mg p.o. q.h.s. 6. He has also accepted a trial of nicotine gum 2 mg every 2 hours as needed for nicotine replacement. B. Diet is regular. C. Activities: As tolerated. The patient has accepted a continuation of nicotine replacement therapy in the form of Nicorette gum. In addition, he has been referred to the [facility] Smokers' Quitline, which is toll free at [phone]. There are no laboratory or diagnostic studies pending at the time of discharge. D. Followup care: The patient has his next appointment with Sienna Kraus on 03/02/17 at 1 p.m. He will also be seeing his psychiatrist Dr. Alka Gross on , 03/04/17 at 10 a.m. E. Substance abuse followup is nonapplicable. HOSPITAL COURSE: Part A: Reason for admission: The patient is a 21-year-old female to male transgender individual who goes by the name Joanna with a history of borderline personality disorder and affective problems who was self-referred to the emergency room complaining of worsening depression and anxiety along with suicidal overdose of approximately 450 mg of Benadryl with the intention of killing himself. After the overdose, the patient promptly contacted the police and was brought in to the emergency room for treatment where he received activated charcoal. The patient continued to endorse parasuicidal ideation to the effect that he felt others will be better off without him and he did not feel safe returning to his apartment due to his impulsive decision making. The patient reported a previous event of cutting earlier in the week, but they were "not able to stand the pain" and this went unreported. He also reported some auditory and possible visual hallucinations as well as paranoia that the patient attributed to the overdose on Benadryl. In terms of stressors, the patient is indicating that he broke up with his fiancee of the last 2-1/2 years in order to be with a new boyfriend; however, that new boyfriend then decided to breakup with him. Interestingly, he is in an active third relationship with a long distance relation who happens to be a male living in [place]. 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 "My life is always stressful, " he states. On history, he also endorses recent abuse of Benadryl. He states that when he takes the Benadryl it induces a kind of delirium that makes him forget about his problems. He acknowledges that this is a maladaptive coping strategy and later admits to occasionally doing similar actions with his prescribed Remeron and gabapentin. Despite admitting this to me, he is upset that his gabapentin, Remeron and Klonopin have been held by the admitting psychiatrist. I tried to reach out to his outpatient psychiatrist, Dr. Alka Gross, for further collateral information, but was unable to reach that clinician. Symptomatically, the patient was endorsing mostly anxious and depressed mood, although he was denying neurovegetative symptoms at the time of admission. He denies any history of manic symptoms in the past. Part B: Psychiatric treatment rendered: The patient was admitted to the adult behavioral health unit where he was placed on q. 15-minute checks for his own safety. We resumed his Effexor, trazodone and aripiprazole; however, we held his gabapentin and Remeron due to his endorsement of abusing these in the past. In terms of his Klonopin, he insisted to us that this was something that he had been on for years, but this was inconsistent from the data we discovered on the state controlled substances website, which indicates that he only had two 30 -day prescriptions for Klonopin one from February [address] All Calle and one from December of this year from Dr. Alka Gross. We were not able to connect with Dr. Gross to ask about continued use of benzodiazepine medication. While the patient was here, he was completely cooperative going to groups and interacting with the staff and peers. It is notable that he was started on an antibiotic azithromycin by the emergency room secondary, I believe to having a urinary tract infection. After three days of this treatment , he started to develop nausea and this medication was held and he was granted p.o. Zofran for symptomatic relief. After discontinuation of antibiotic therapy , his nausea completely resolved. We were able to reach to his outpatient therapist Sienna Kraus at [facility]. He was supportive of the treatment team idea that Li should be involved in the [facility] program, which is a more intensive skill based treatment setting within [facility] that offers many advantages to those with borderline personality disorder such as the patient suffers from. We did have the opportunity to discuss borderline personality pathology with him and he was open to the idea that this is not amenable to medications and that often fewer medications are more helpful than significant polypharmacy. The patient currently has an apartment through the [facility] and we were able to contact them. They are supportive of the discharge plan and are arriving to pick Joanna up from the Hospital. Joanna is tolerating his medications quite well. He showed no signs or symptoms of substance withdrawal. He is calm, cooperative, thinking clearly and behaving in a safe fashion. We feel that he would do better receiving services in a less restrictive setting. [id number]/CPS #: [id number] KATTY
== END 2017-02-26 15:56 | disposition home or self-care (01) | DRG 754 ==
LOC: ED 20:55 → BSU 02-23 05:48
PROVIDERS: ADMIT Psychiatry & Neurology Psychiatry; ATTEND Psychiatry & Neurology Psychiatry
PROC: GZHZZZZ Group Psychotherapy (ICD-10-PCS; principal; 2017-02-24)
DX: F32.9 Major depressive disorder, single episode, unspecified (principal); F50.00 Anorexia nervosa, unspecified; N39.0 Urinary tract infection, site not specified; F41.9 Anxiety disorder, unspecified; F64.9 Gender identity disorder, unspecified; F60.3 Borderline personality disorder; K21.9 Gastro-esophageal reflux disease without esophagitis; L50.1 Idiopathic urticaria; J45.909 Unspecified asthma, uncomplicated; F39 Unspecified mood [affective] disorder; F12.90 Cannabis use, unspecified, uncomplicated; T45.0X2A Poisoning by antiallergic and antiemetic drugs, intentional self-harm, initial encounter; F17.210 Nicotine dependence, cigarettes, uncomplicated; F19.10 Other psychoactive substance abuse, uncomplicated; R11.0 Nausea; T36.95XA Adverse effect of unspecified systemic antibiotic, initial encounter; Z91.040 Latex allergy status; Z91.048 Other nonmedicinal substance allergy status; Y92.9 Unspecified place or not applicable; Z81.8 Family history of other mental and behavioral disorders; Z91.5 Personal history of self-harm
CPT/HCPCS: 36415; 80053; 80307; 80320; 80329; 81003; 81015; 83605; 84443; 84484; 84702; 85025; 87086; 90853; 93005; 99222; 99231; 99238; 99285; A9270-GY; G0480

== ENCOUNTER 2017-07-04 11:42 | Emergency (ER) | payer OTHER ==
[2017-07-04] MEDS ORDERED: NS 0.9% 1000 ML* 1,000 ML IV ONE (11:44)
[2017-07-04 12:55] LABS: ABS Basophils 0 10^3/ul (0-0.2); ABS Eosinophils 0 10^3/ul (0-0.6); ABS Lymphocytes 1.3 10^3/ul (1.0-4.8); ABS Monocytes 0.4 10^3/ul (0-0.8); ABS Neutrophils 6.1 10^3/ul (1.5-7.7); ABS Nucleated RBC 0 10^3/ul; Eosinophil % 0.4 % (0-6); Hematocrit 38 % (35-47); Hemoglobin 13.5 g/dl (12.0-16.0); Lymphocyte % 16.7 % (25-47); Mean Corpuscular HGB Conc 35 g/dl (31-36); Mean Corpuscular Hemoglobin 31 pg (27-31); Mean Corpuscular Volume 88 fL (80-97); Mean Platelet Volume 8.9 um3 (7.4-10.4); Nucleated Red Blood Cells % 0; Platelet Count 256 10^3/ul (150-450); Red Blood Count 4.38 10^6/ul (4.0-5.4); Red Cell Distribution Width 13 % (10.5-15); White Blood Count 7.9 10^3/ul (3.5-10.8)
[2017-07-04 13:03] LABS: INR 1.06 (0.77-1.02)
[2017-07-04 13:12] LABS: EGFR Non-African American 106.7 (>60)
--- NOTE | 2017-07-04 19:08 | ED ---
Papo Wang Stephanie, scribed for Ambrosio Damico MD on 07/04/17 at 1158 . Substance Abuse/Use - HPI Summary HPI Summary: The pt is a 21 y/o F BIBA to the ED with c/o clonopin OD that occurred at 10:30 today. The pt is transgender and uses the name Aditya and pronoun male. The pt allegedly took 40 tablets of clonopin totaling 20mg. The pt has fresh lacerations to his bilateral arms from today and this past week. There is no active bleeding to the superficial lacerations. The pt states he was feeling SI and did not want to come in and was forced by friends to get medical attention. The pt usually takes 0.5 mg of clonopin 2x per day. - History Of Current Complaint Chief Complaint: EDOverdose Stated Complaint: POSS. OVERDOSE Time Seen by Provider: 07/04/17 11:43 Hx Obtained From: Patient Hx Last Menstrual Period: 1 month ago, unsure of date ?: No Onset/Duration of Drug/ETOH Abuse: Hours - 2 Ingestion History: Type/Name Of Drug - clonopin, Amount Ingested - 20mg, Approximate Time Of Ingestion - 10:30 Overdose Characteristics: Oral Timing Of Abuse: Binge Use Severity Currently: Mild Character: Depressed Aggravating Factor(s): Nothing Alleviating Factor(s): Nothing Associated Signs And Symptoms: Other: - SI - Allergies/Home Medications Allergies/Adverse Reactions: Allergies Allergy/AdvReac Type Severity Reaction Status Date / Time latex Allergy Rash Verified 07/04/17 12:37 Perfume Allergy Difficulty Verified 07/04/17 12:37 Breathing/Wheezing Home Medications: Home Medications ARIPiprazole TAB* [Abilify TAB*] 5 mg PO DAILY 07/04/17 [History Confirmed ] Gabapentin CAP(*) [Neurontin 300 CAP(*)] 300 mg PO BID 07/04/17 [History Confirmed 07/04/17] Testosterone GEL (NF) [Androgel (NF)] 25 mg TOPICAL DAILY 07/04/17 [History Confirmed 07/04/17] Venlafaxine EXT RELEASE CAP* [Effexor Xr CAP*] 150 mg PO DAILY 07/04/17 [ History Confirmed 07/04/17] clonazePAM TAB(*) [KlonoPIN TAB(*)] 0.5 mg PO BID PRN MDD 1 mg 07/04/17 [ History Confirmed 07/04/17] traZODone TAB* [Desyrel TAB*] 50 mg PO BEDTIME 07/04/17 [History Confirmed 07/04] PMH/Surg Hx/FS Hx/Imm Hx Endocrine/Hematology History: Denies: Hx Anticoagulant Therapy, Hx Diabetes, Hx Thyroid Disease Cardiovascular History: Denies: Hx Congestive Heart Failure, Hx Hypertension Respiratory History: Reports: Hx Asthma, Hx Seasonal Allergies Denies: Hx Chronic Obstructive Pulmonary Disease (COPD) GI History: Reports: Hx Gastroesophageal Reflux Disease Denies: Hx Ulcer History: Reports: Other Problems/Disorders - Chronic UTI Denies: Hx Renal Disease Sensory History: Denies: Hx Contacts or Glasses, Hx Hearing Aid Opthamlomology History: Denies: Hx Contacts or Glasses Psychiatric History: Reports: Hx Anxiety, Hx Eating Disorder - Anorexia, Hx Depression, Hx Inpatient Treatment, Hx Community Mental Health Tx, Hx Suicide Attempt - past attempts, Other Psychiatric Issues/Disorders - Borderline personality Denies: Hx Attention Deficit Hyperactivity Disorder, Hx Panic Disorder, Hx Post Traumatic Stress Disorder, Hx Schizophrenia, Hx Bipolar Disorder, Hx of Violent Episodes Against Others, Hx Substance Abuse - Surgical History Surgery Procedure, Year, and Place: NONE Infectious Disease History: No Infectious Disease History: Denies: Hx Clostridium Difficile, Hx Hepatitis, Hx Human Immunodeficiency Virus (HIV), Hx of Known/Suspected MRSA, Hx Shingles, Hx Tuberculosis, Hx Known/ Suspected VRE, Hx Known/Suspected VRSA, History Other Infectious Disease, Traveled Outside the [place] in Last 30 Days - Family History Known Family History: Positive: Diabetes Negative: Cardiac Disease, Hypertension Family History: Family history of SLE, multiple sclerosis, temporal lobe epilepsy, Graves' disease, and trigeminal neuralgia in mother in addition to borderline personality disorder. Maternal grandmother suffers from depression, chronic fatigue syndrome, and Marvin's disease. - Social History Occupation: Employed Part-time Lives: Alone Alcohol Use: Rare Hx Substance Use: Yes Substance Use Type: Reports: Marijuana Substance Use Comment - Amount & Last Used: pt reports using marijuana "occassionally" Hx Tobacco Use: Yes Smoking Status (MU): Heavy Every Day Tobacco Smoker Type: Cigarettes Amount Used/How Often: 1/2 pack per day Length of Time of Smoking/Using Tobacco: few years Have You Smoked in the Last Year: Yes Review of Systems Positive: Fever Negative: Slurred Speech Positive: Other - SI All Other Systems Reviewed And Are Negative: Yes Physical Exam - Summary Physical Exam Summary: General: well-appearing, no pain distress, tearful Skin: warm, dry, multiple superficial lacerations to bilateral forearms, no active bleeding Head: normal Eyes: EOMI, BRANT ENT: normal Neck: supple, nontender Respiratory: CTA, breath sounds present Cardiovascular: RRR Abdomen: soft, nontender Bowel: present Musculoskeletal: normal, strength/ROM intact Neurological: sensory/motor intact, A&O x3 Psychological: affect/mood appropriate Triage Information Reviewed: Yes Vital Signs On Initial Exam: Initial Vitals Temp Pulse Resp BP Pulse Ox 100.6 F 113 14 130/85 98 07/04/17 11:45 07/04/17 11:45 07/04/17 11:45 07/04/17 11:45 07/04/17 11:45 Vital Signs Reviewed: Yes Diagnostics - Vital Signs Vital Signs Temp Pulse Resp BP Pulse Ox 07/04/17 11:45 100.6 F 113 14 130/85 98 - Laboratory Lab Results: Lab Results 07/04/17 07/04/17 07/04/17 Range/Units 12:44 12:44 12:45 WBC 7.9 (3.5-10.8) 10^3/ul RBC 4.38 (4.0-5.4) 10^6/ul Hgb 13.5 (12.0-16.0) g/dl Hct 38 (35-47) % MCV 88 (80-97) fL MCH 31 (27-31) pg MCHC 35 (31-36) g/dl RDW 13 (10.5-15) % Plt Count 256 (150-450) 10^3/ul MPV 8.9 (7.4-10.4) um3 Neut % (Auto) 76.6 (38-83) % Lymph % (Auto) 16.7 L (25-47) % [place] % (Auto) 5.7 (0-7) % Eos % (Auto) 0.4 (0-6) % Baso % (Auto) 0.6 (0-2) % Absolute Neuts (auto) 6.1 (1.5-7.7) 10^3/ul Absolute Lymphs (auto) 1.3 (1.0-4.8) 10^3/ul Absolute Monos (auto) 0.4 (0-0.8) 10^3/ul Absolute Eos (auto) 0 (0-0.6) 10^3/ul Absolute Basos (auto) 0 (0-0.2) 10^3/ul Absolute Nucleated RBC 0 10^3/ul Nucleated RBC % 0 INR (Anticoag Therapy) 1.06 H (0.77-1.02) APTT 32.0 (26.0-36.3) seconds Sodium (139-145) mmol/L Potassium (3.5-5.0) mmol/L Chloride (101-111) mmol/L Carbon Dioxide (22-32) mmol/L Anion Gap (2-11) mmol/L BUN (6-24) mg/dL Creatinine (0.51-0.95) mg/dL Est GFR ( Amer) (>60) Est GFR (Non-Af Amer) (>60) BUN/Creatinine Ratio (8-20) Glucose (70-100) mg/dL Lactic Acid 1.1 (0.5-2.0) mmol/L Calcium (8.6-10.3) mg/dL Total Bilirubin (0.2-1.0) mg/dL AST (13-39) U/L ALT (7-52) U/L Alkaline Phosphatase (34-104) U/L C-Reactive Protein (< 5.00) mg/L Total Protein (6.4-8.9) g/dL Albumin (3.2-5.2) g/dL Globulin (2-4) g/dL Albumin/Globulin Ratio (1-3) TSH (0.34-5.60) mcIU/mL Beta HCG, Quant mIU/mL Salicylates (<30) mg/dL Acetaminophen mcg/mL Serum Alcohol (<10) mg/dL 07/04/17 Range/Units 12:45 WBC (3.5-10.8) 10^3/ul RBC (4.0-5.4) 10^6/ul Hgb (12.0-16.0) g/dl Hct (35-47) % MCV (80-97) fL MCH (27-31) pg MCHC (31-36) g/dl RDW (10.5-15) % Plt Count (150-450) 10^3/ul MPV (7.4-10.4) um3 Neut % (Auto) (38-83) % Lymph % (Auto) (25-47) % [place] % (Auto) (0-7) % Eos % (Auto) (0-6) % Baso % (Auto) (0-2) % Absolute Neuts (auto) (1.5-7.7) 10^3/ul Absolute Lymphs (auto) (1.0-4.8) 10^3/ul Absolute Monos (auto) (0-0.8) 10^3/ul Absolute Eos (auto) (0-0.6) 10^3/ul Absolute Basos (auto) (0-0.2) 10^3/ul Absolute Nucleated RBC 10^3/ul Nucleated RBC % INR (Anticoag Therapy) (0.77-1.02) APTT (26.0-36.3) seconds Sodium 140 (139-145) mmol/L Potassium 3.8 (3.5-5.0) mmol/L Chloride 106 (101-111) mmol/L Carbon Dioxide 25 (22-32) mmol/L Anion Gap 9 (2-11) mmol/L BUN 8 (6-24) mg/dL Creatinine 0.70 (0.51-0.95) mg/dL Est GFR ( Amer) 137.2 (>60) Est GFR (Non-Af Amer) 106.7 (>60) BUN/Creatinine Ratio 11.4 (8-20) Glucose 90 (70-100) mg/dL Lactic Acid (0.5-2.0) mmol/L Calcium 9.7 (8.6-10.3) mg/dL Total Bilirubin 0.90 (0.2-1.0) mg/dL AST 20 (13-39) U/L ALT 12 (7-52) U/L Alkaline Phosphatase 97 (34-104) U/L C-Reactive Protein 3.24 (< 5.00) mg/L Total Protein 7.4 (6.4-8.9) g/dL Albumin 4.4 (3.2-5.2) g/dL Globulin 3.0 (2-4) g/dL Albumin/Globulin Ratio 1.5 (1-3) TSH 0.66 (0.34-5.60) mcIU/mL Beta HCG, Quant < 0.60 mIU/mL Salicylates < 2.50 (<30) mg/dL Acetaminophen < 15 mcg/mL Serum Alcohol < 10 (<10) mg/dL Result Diagrams: 07/04/17 12:44 07/04/17 12:45 Lab Statement: Any lab studies that have been ordered have been reviewed, and results considered in the medical decision making process. - EKG 11:59 Cardiac Rate: NL - [address] Segment: Normal Ectopy: None EKG Interpretation: Sinus arrhythmia Course/Dx - Course Course Of Treatment: At 17:30 ED physician medically cleared the pt. This pt is a sign out to Dr. Noyola pending MHE. - Diagnoses Provider Diagnoses: Mental health problem, Overdose Discharge - Sign-Out/Discharge Documenting (check all that apply): Sign-Out Patient Signing out patient TO: Dann Noyola - Pending MHE. - Discharge Plan Referrals: Stefania Crowder MD [Primary Care Provider] - The documentation as recorded by the Papo morley Stephanie accurately reflects the service I personally performed and the decisions made by me, Ambrosio Damico MD.
[2017-07-04] MEDS ORDERED: clonazePAM TAB(*) 0.5 MG PO ONE (21:32)
--- NOTE | 2017-07-05 00:20 | ED ---
Calli Wang Gabriel, sabineibed for Kiel Liu MD on 07/04/17 at 2133 . Progress - Progress Note Progress Note: This patient was signed out from Dr. Damico, pending disposition, awaiting MHE. After a MHE by Dr. Bella he decided the patient will be an involuntary admit. The patients condition is fair and will be admitted to [facility] with Dx of bipolar disorder. Re-Evaluation - Re-Evaluation First Eval Re-Evaluation Time: 21:32 Change: Worse Comment: The patient is upset and is screaming at staff. Course/Dx - Course Course Of Treatment: This patient was signed out from Dr. Damico, pending disposition, awaiting MHE. After a MHE by Dr. Bella he decided the patient will be an involuntary admit. The patients condition is fair and will be admitted with Dx of bipolar disorder. - Diagnoses Provider Diagnoses: Bipolar disorder Discharge - Sign-Out/Discharge Documenting (check all that apply): Discharge/Admit/Transfer - admitted - Discharge Plan Condition: Fair [place] [place]errals: Stefania Crowder MD [Primary Care Provider] - The documentation as recorded by the Calli morley Gabriel accurately reflects the service I personally performed and the decisions made by , Kiel Liu MD.
[2017-07-05] MEDS ORDERED: traZODone TAB* 50 MG TAB PO ONE (02:52)
[2017-07-05] MEDS ORDERED: Gabapentin CAP(*) 300 MG PO ONE (02:53)
--- NOTE | 2017-07-05 06:00 | PN ---
ED Flex Patient Progress Note Date of Service: 07/04/17 Subjective: This is a 21 year-old F who is pending admission to [facility] OD. Pt. examined around 0555, room #11. Pt. sleeping comfortably. Had an uneventful night per nurse. Objective: Vitals: Most recent vital signs documented below. General NAD, Alert and oriented x3. Laboratory: Current laboratory results documented below. Assessment: Pending involuntary admission. Plan: Pending psychiatric or medical consultation to admit discharge will follow up daily. Vital Signs Temp Pulse Resp BP Pulse Ox 99.8 F 83 13 122/73 100 07/04/17 17:45 07/04/17 17:45 07/04/17 17:45 07/04/17 17:45 07/04/17 17:45 Lab Results - Entire Visit 07/04/17 07/04/17 07/04/17 12:45 12:45 12:44 WBC RBC Hgb Hct MCV MCH MCHC RDW Plt Count MPV Neut % (Auto) Lymph % (Auto) [place] % (Auto) Eos % (Auto) Baso % (Auto) Absolute Neuts (auto) Absolute Lymphs (auto) Absolute Monos (auto) Absolute Eos (auto) Absolute Basos (auto) Absolute Nucleated RBC Nucleated RBC % INR (Anticoag Therapy) 1.06 H APTT 32.0 Sodium 140 Potassium 3.8 Chloride 106 Carbon Dioxide 25 Anion Gap 9 BUN 8 Creatinine 0.70 Est GFR ( Amer) 137.2 Est GFR (Non-Af Amer) 106.7 BUN/Creatinine Ratio 11.4 Glucose 90 Lactic Acid 1.1 Calcium 9.7 Total Bilirubin 0.90 AST 20 ALT 12 Alkaline Phosphatase 97 C-Reactive Protein 3.24 Total Protein 7.4 Albumin 4.4 Globulin 3.0 Albumin/Globulin Ratio 1.5 TSH 0.66 Beta HCG, Quant < 0.60 Salicylates < 2.50 Acetaminophen < 15 Serum Alcohol < 10 07/04/17 12:44 WBC 7.9 RBC 4.38 Hgb 13.5 Hct 38 MCV 88 MCH 31 MCHC 35 RDW 13 Plt Count 256 MPV 8.9 Neut % (Auto) 76.6 Lymph % (Auto) 16.7 L [place] % (Auto) 5.7 Eos % (Auto) 0.4 Baso % (Auto) 0.6 Absolute Neuts (auto) 6.1 Absolute Lymphs (auto) 1.3 Absolute Monos (auto) 0.4 Absolute Eos (auto) 0 Absolute Basos (auto) 0 Absolute Nucleated RBC 0 Nucleated RBC % 0 INR (Anticoag Therapy) APTT Sodium Potassium Chloride Carbon Dioxide Anion Gap BUN Creatinine Est GFR ( Amer) Est GFR (Non-Af Amer) BUN/Creatinine Ratio Glucose Lactic Acid Calcium Total Bilirubin AST ALT Alkaline Phosphatase C-Reactive Protein Total Protein Albumin Globulin Albumin/Globulin Ratio TSH Beta HCG, Quant Salicylates Acetaminophen Serum Alcohol
[2017-07-05 11:08] VITALS: BP 106/67
--- NOTE | 2017-07-05 11:14 | ED ---
Re-Evaluation - Re-Evaluation First Eval Re-Evaluation Time: 10:30 Change: Improved Course/Dx - Course Course Of Treatment: Renetta Castillo was medically cleared and seen by the MHE. After some review, they felt that it was safe to send the patient back to [facility]. - Diagnoses Provider Diagnoses: Bipolar disorder Discharge - Sign-Out/Discharge Documenting (check all that apply): Discharge/Admit/Transfer - Discharge Plan Condition: Stable Disposition: HOME Referrals: Stefania Crowder MD [Primary Care Provider] - - Billing Disposition and Condition Condition: STABLE Disposition: HOME
== END 2017-07-05 11:16 | disposition home or self-care (01) ==
LOC: ED 11:42
DX: F31.9 Bipolar disorder, unspecified (principal); F32.9 Major depressive disorder, single episode, unspecified; T65.91XA Toxic effect of unspecified substance, accidental (unintentional), initial encounter; Y92.9 Unspecified place or not applicable
CPT/HCPCS: 36415; 80053; 80320; 80329; 83605; 84443; 84702; 85025; 85610; 85730; 86140; 93005; 99285; A9270-GY; G0480

== ENCOUNTER 2017-11-03 17:49 | Emergency (ER) | payer MEDICAID, OTHER ==
--- NOTE | 2017-11-03 19:24 | ED ---
Psychiatric Complaint - HPI Summary HPI Summary: Pt is a 22 year old female presenting to the ED with a mental health complaint. The pt tried to hurt herself yesterday by taking 1200mg gabapentin, 25 mg abilify, and 400mg trazadone. The pt drinks quite heavily, mostly smokes marijuana, and vapes, with the occasional cigarette. The pt does not sleep well , and has a hx of BPD, anxiety, major depression, anorexia, and psychosis. The pt also states that her throat hurts, but it is just more uncomfortable than anything, though a couple of days ago she did cough and sneeze up some blood. - History Of Current Complaint Chief Complaint: EDMentalHealth Time Seen by Provider: 11/03/17 18:15 Hx Obtained From: Patient Hx Last Menstrual Period: 1 month ago, unsure of date Onset/Duration: Gradual Onset, Still Present Timing: Constant Severity Initially: Mild Severity Currently: Mild Character: Depressed Aggravating Factor(s): Nothing Alleviating Factor(s): Nothing Associated Signs And Symptoms: Positive: Sleep Disturbance Related History: Positive For: Prior Psychiatric Issues Ingestion History: Type/Name Of Drug - gabapentin, abilify, trazadone, Amount Ingested - 1200 mg, 25 mg, 400 mg respectively., Approximate Time Of Ingestion - last night - Allergies/Home Medications Allergies/Adverse Reactions: Allergies Allergy/AdvReac Type Severity Reaction Status Date / Time latex Allergy Rash Verified 11/03/17 18:01 Perfume Allergy Difficulty Verified 11/03/17 18:01 Breathing/Wheezing PMH/Surg Hx/FS Hx/Imm Hx Previously Healthy: No Endocrine/Hematology History: Denies: Hx Anticoagulant Therapy, Hx Diabetes, Hx Thyroid Disease Cardiovascular History: Denies: Hx Congestive Heart Failure, Hx Hypertension Respiratory History: Reports: Hx Asthma, Hx Seasonal Allergies Denies: Hx Chronic Obstructive Pulmonary Disease (COPD) GI History: Reports: Hx Gastroesophageal Reflux Disease Denies: Hx Ulcer History: Reports: Other Problems/Disorders - Chronic UTI Denies: Hx Renal Disease Sensory History: Denies: Hx Contacts or Glasses, Hx Hearing Aid Opthamlomology History: Denies: Hx Contacts or Glasses Psychiatric History: Reports: Hx Anxiety, Hx Eating Disorder - Anorexia, Hx Depression, Hx Inpatient Treatment, Hx Community Mental Health Tx, Hx Suicide Attempt - past attempts, Other Psychiatric Issues/Disorders - Borderline personality Denies: Hx Attention Deficit Hyperactivity Disorder, Hx Panic Disorder, Hx Post Traumatic Stress Disorder, Hx Schizophrenia, Hx Bipolar Disorder, Hx of Violent Episodes Against Others, Hx Substance Abuse Infectious Disease History: No Infectious Disease History: Denies: Hx Clostridium Difficile, Hx Hepatitis, Hx Human Immunodeficiency Virus (HIV), Hx of Known/Suspected MRSA, Hx Shingles, Hx Tuberculosis, Hx Known/ Suspected VRE, Hx Known/Suspected VRSA, History Other Infectious Disease, Traveled Outside the [place] in Last 30 Days - Family History Known Family History: Positive: Diabetes Negative: Cardiac Disease, Hypertension Family History: Family history of SLE, multiple sclerosis, temporal lobe epilepsy, Graves' disease, and trigeminal neuralgia in mother in addition to borderline personality disorder. Maternal grandmother suffers from depression, chronic fatigue syndrome, and Marvin's disease. - Social History Alcohol Use: Rare Hx Substance Use: Yes Substance Use Type: Reports: Marijuana Substance Use Comment - Amount & Last Used: pt reports using marijuana "occassionally" Hx Tobacco Use: Yes Smoking Status (MU): Heavy Every Day Tobacco Smoker Type: Cigarettes Amount Used/How Often: 1/2 pack per day Length of Time of Smoking/Using Tobacco: few years Have You Smoked in the Last Year: Yes Review of Systems Negative: Fever, Chills, Skin Diaphoresis Negative: Erythema Positive: Sore Throat Negative: Chest Pain Negative: Shortness Of Breath, Cough Negative: Abdominal Pain, Vomiting, Nausea Negative: dysuria, hematuria Negative: Myalgia, Edema Negative: Rash Neurological: Negative - dizziness Positive: Depressed All Other Systems Reviewed And Are Negative: Yes Physical Exam - Summary Physical Exam Summary: Constitutional: Well-developed, Well-nourished, Alert. (-) Distressed Skin: Warm, Dry HENT: Normocephalic; Atraumatic, normal oropharynx Eyes: Conjunctiva normal Neck: Musculoskeletal ROM normal neck. (-) JVD, (-) Stridor, (-) Tracheal deviation Cardio: Rhythm regular, rate normal, Heart sounds normal; Intact distal pulses; The pedal pulses are 2+ and symmetric. Radial pulses are 2+ and symmetric. (-) Murmur Pulmonary/Chest wall: Effort normal. (-) Respiratory distress, (-) Wheezes, (-) Rales Abd: Soft, (-) epigastric tenderness, (-) Distension, (-) Guarding, (-) Rebound Musculoskeletal: (-) Edema Lymph: (-) Cervical adenopathy Neuro: Alert, Oriented x3 Psych: Mood and affect Normal Triage Information Reviewed: Yes Vital Signs On Initial Exam: Initial Vitals Temp Pulse Resp BP Pulse Ox 99.6 F 103 14 132/81 96 11/03/17 17:59 11/03/17 17:59 11/03/17 17:59 11/03/17 17:59 11/03/17 17:59 Vital Signs Reviewed: Yes Diagnostics - Vital Signs Vital Signs Temp Pulse Resp BP Pulse Ox 11/03/17 17:59 99.6 F 103 14 132/81 96 - Laboratory Lab Statement: Any lab studies that have been ordered have been reviewed, and results considered in the medical decision making process. Course/Dx - Course Course Of Treatment: Pt is a 22 year old female with a sore throat and with some mental health issues. She tried to hurt herself yesterday with a mix of gabapentin, abilify, and trazadone, and was unsuccessful. Poison control should be called and we will proceed medically when they respond. - Differential Dx/Clinical Impression Provider Diagnosis: Depression, Intentional overdose of drug in tablet form, Suicide ideation Discharge - Sign-Out/Discharge Documenting (check all that apply): Sign-Out Patient Signing out patient TO: Kiel Liu - Discharge Plan Condition: Stable Referrals: Stefania Crowder MD [Primary Care Provider] - - Attestation Statements Document Initiated by Scribe: Yes Documenting Scribe: Leslee Olevra Provider For Whom Scribe is Documenting (Include Credential): Dino Uribe MD. Scribe Attestation: Leslee Wang, scribed for Dino Uribe MD. on 11/03/17 at 1924.
[2017-11-03 19:49] LABS: ABS Basophils 0.1 10^3/ul (0-0.2); ABS Eosinophils 0.1 10^3/ul (0-0.6); ABS Lymphocytes 2.2 10^3/ul (1.0-4.8); ABS Monocytes 0.6 10^3/ul (0-0.8); ABS Nucleated RBC 0 10^3/ul; Eosinophil % 0.6 % (0-6); Hematocrit 40 % (35-47); Hemoglobin 13.5 g/dl (12.0-16.0); Lymphocyte % 24.9 % (25-47); Mean Corpuscular HGB Conc 34 g/dl (31-36); Mean Corpuscular Hemoglobin 30 pg (27-31); Mean Corpuscular Volume 88 fL (80-97); Mean Platelet Volume 8.7 um3 (7.4-10.4); Nucleated Red Blood Cells % 0.1; Platelet Count 307 10^3/ul (150-450); Red Blood Count 4.49 10^6/ul (4.00-5.40); Red Cell Distribution Width 14 % (10.5-15)
[2017-11-03 19:53] LABS: Urine Appearance Cloudy; Urine Blood 3+ (Negative); Urine Color Amber; Urine Ketones Negative (Negative); Urine Protein 1+(30 mg/dL) (Negative); Urine Red Blood Cell 3+(>10/hpf) (Absent); Urine Specific Gravity 1.031 (1.010-1.030); Urine Urobilinogen Negative (Negative); Urine White Blood Cell 3+(>20/hpf) (Absent)
[2017-11-03 20:12] LABS: EGFR Non-African American 71.6 (>60)
--- NOTE | 2017-11-04 03:10 | ED ---
Progress - Progress Note Progress Note: The patient is a sign-out from Dr. Dino Uribe MD, to Dr. Kiel Liu MD, at shift change at 19:00 pending medical clearance and disposition. At 00:30, Poison Control was consulted with to confirm the pt's stable condition. Patient is a sign-out to Dr. Ghassan Sommers MD, at shift change at 0700 on MHU hold pending disposition. Course/Dx - Course Course Of Treatment: Pt is a 22 year old female with a sore throat and with some mental health issues. She tried to hurt herself yesterday with a mix of gabapentin, abilify, and trazadone, and was unsuccessful. Poison control should be called and we will proceed medically when they respond. - Diagnoses Provider Diagnoses: Depression, Intentional overdose of drug in tablet form, Suicide ideation Discharge - Sign-Out/Discharge Documenting (check all that apply): Sign-Out Patient, Receiving Sign-Out Signing out patient TO: Ghassan Sommers - Patient is a sign-out to Dr. Ghassan Sommers MD, at shift change at 0700 on MHU hold pending disposition. Receiving patient FROM: Dino Uribe - Patient is a sign-out from Dr. Uribe at shift change pending medical clearance and disposition. - Discharge Plan Condition: Stable Referrals: Stefania Crowder MD [Primary Care Provider] - - Billing Disposition and Condition Condition: STABLE - Attestation Statements Document Initiated by Scribe: Yes Documenting Scribe: Regina Schwarz Provider For Whom Zinaibje is Documenting (Include Credential): Dr. Kiel Liu MD Scribe Attestation: Regina Wang scribed for Dr. Kiel Liu MD on 11/04/17 at 0659. Scribe Documentation Reviewed: Yes Provider Attestation: The documentation as recorded by the Regina morley accurately reflects the service I personally performed and the decisions made by me, Dr. Kiel Liu MD
[2017-11-04] MEDS ORDERED: Ibuprofen TAB* 400 MG PO ONE (07:50)
[2017-11-04] MEDS ORDERED: Ibuprofen TAB* 400 MG ONE (07:51)
--- NOTE | 2017-11-04 09:27 | ED ---
Progress - Progress Note Progress Note: This patient was signed out from Dr Liu awaiting MHE. After MHE by Dr. Reardon the patient was deemed stable to be discharged home with a dx of adjustment disorder with disturbance of mood and conduct. She will f/u with a couples counselor. - Consult/PCP Time Called: 00:07 Course/Dx - Diagnoses Provider Diagnoses: Adjustment disorder with disturbance of conduct, Adjustment disorder with disturbance of emotion Discharge - Sign-Out/Discharge Documenting (check all that apply): Patient Departure - Discharge Plan Condition: Stable Disposition: HOME Referrals: Stefania Crowder MD [Primary Care Provider] - - Attestation Statements Document Initiated by Scribe: Yes Documenting Scribe: Enoch Mccurdy Provider For Whom Scribe is Documenting (Include Credential): Ghassan Sommers MD Scribe Attestation: Enoch Wang , scribed for Ghassan Sommers MD on 11/04/17 at 0926.
[2017-11-04 09:40] VITALS: BP 110/65
--- NOTE | 2017-11-04 10:05 | PN ---
ED Flex Patient Progress Note Date of Service: 11/04/17 Subjective: Renetta (Aditya) reports having SI one week ago with thoughts to jump off bridge. Currently denies SI. Has a follow up with Dr. Alka Gross at [facility] in 2 weeks. C/O AH and VH as well as relational issues with boyfriend. Objective: young transgender female to male, white; cooperative; denies SI Assessment: Borderline PD Plan: D/C to outpatient f/u at [facility]. Will start lurasidone 40mg PO qhs. Vital Signs Temp Pulse Resp BP Pulse Ox 97.5 F 63 17 110/65 99 11/04/17 09:30 11/04/17 09:30 11/04/17 09:30 11/04/17 09:30 11/04/17 09:30 Lab Results - Entire Visit 11/03/17 11/03/17 11/03/17 19:48 19:40 19:40 WBC 9.0 RBC 4.49 Hgb 13.5 Hct 40 MCV 88 MCH 30 MCHC 34 RDW 14 Plt Count 307 MPV 8.7 Neut % (Auto) 66.7 Lymph % (Auto) 24.9 L [place] % (Auto) 7.0 Eos % (Auto) 0.6 Baso % (Auto) 0.8 Absolute Neuts (auto) 6.0 Absolute Lymphs (auto) 2.2 Absolute Monos (auto) 0.6 Absolute Eos (auto) 0.1 Absolute Basos (auto) 0.1 Absolute Nucleated RBC 0 Nucleated RBC % 0.1 Sodium 138 Potassium 4.2 Chloride 104 Carbon Dioxide 27 Anion Gap 7 BUN 18 Creatinine 0.98 H Est GFR ( Amer) 86.7 Est GFR (Non-Af Amer) 71.6 BUN/Creatinine Ratio 18.4 Glucose 95 Calcium 9.4 Total Bilirubin 0.50 AST 19 ALT 10 Alkaline Phosphatase 98 Total Protein 7.2 Albumin 4.1 Globulin 3.1 Albumin/Globulin Ratio 1.3 TSH 0.66 Beta HCG, Quant < 0.60 Urine Color Urine Appearance Urine pH Ur Specific [place] Urine Protein Urine Ketones Urine Blood Urine Nitrate Urine Bilirubin Urine Urobilinogen Ur Leukocyte Esterase Urine WBC (Auto) Urine RBC (Auto) Ur Squamous Epith Cells Ur Transition Epith Cell Urine Bacteria Urine Glucose Salicylates < 2.50 Urine Opiates Screen Acetaminophen < 15 Ur Barbiturates Screen Ur Phencyclidine Scrn Ur Amphetamines Screen U Benzodiazepines Scrn Urine Cocaine Screen U Cannabinoids Screen Serum Alcohol < 10 Group A Strep Rapid Negative 11/03/17 11/03/17 19:30 19:30 WBC RBC Hgb Hct MCV MCH MCHC RDW Plt Count MPV Neut % (Auto) Lymph % (Auto) [place] % (Auto) Eos % (Auto) Baso % (Auto) Absolute Neuts (auto) Absolute Lymphs (auto) Absolute Monos (auto) Absolute Eos (auto) Absolute Basos (auto) Absolute Nucleated RBC Nucleated RBC % Sodium Potassium Chloride Carbon Dioxide Anion Gap BUN Creatinine Est GFR ( Amer) Est GFR (Non-Af Amer) BUN/Creatinine Ratio Glucose Calcium Total Bilirubin AST ALT Alkaline Phosphatase Total Protein Albumin Globulin Albumin/Globulin Ratio TSH Beta HCG, Quant Urine Color Nieves Urine Appearance Cloudy Urine pH 5.0 Ur Specific [place] 1.031 H Urine Protein 1+(30 mg/dl) A Urine Ketones Negative Urine Blood 3+ A Urine Nitrate Negative Urine Bilirubin Negative Urine Urobilinogen Negative Ur Leukocyte Esterase 2+ A Urine WBC (Auto) 3+(>20/hpf) A Urine RBC (Auto) 3+(>10/hpf) A Ur Squamous Epith Cells Present A Ur Transition Epith Cell Present A Urine Bacteria 1+ A Urine Glucose Negative Salicylates Urine Opiates Screen None detected Acetaminophen Ur Barbiturates Screen None detected Ur Phencyclidine Scrn None detected Ur Amphetamines Screen None detected U Benzodiazepines Scrn None detected Urine Cocaine Screen None detected U Cannabinoids Screen None detected Serum Alcohol Group A Strep Rapid
== END 2017-11-04 10:21 | disposition home or self-care (01) ==
LOC: ED 17:49
DX: F43.24 Adjustment disorder with disturbance of conduct (principal); F43.20 Adjustment disorder, unspecified
CPT/HCPCS: 36415; 80053; 80307; 80320; 80329; 81003; 81015; 84443; 84702; 85025; 87086; 87651; 93005; 99285; A9270-GY; G0480

== ENCOUNTER 2017-11-13 01:53 | Emergency (ER) | payer MEDICAID ==
--- NOTE | 2017-11-13 02:29 | ED ---
Psychiatric Complaint - HPI Summary HPI Summary: This patient is a 22 year old female BIBA to [facility] with a chief complaint of SI. Patient states that she has had a history of SI and attempts in the past. Other than today, patient states that her most recent plan was a few weeks ago, in which she planned to commit suicide through pills. She states that until today, she thought of doing these things, but did not take any action. Today, patient states that she planned to take her life by jumping from the parking garage. She states that she was at the bottom of the parking garage when she told her long-distance boyfriend her plans and he contacted EMS. Patient states that she drank about a liter and a half of vodka and smoked both cigarettes and marijuana. She states she also planned to do cocaine, but didnt get around to it. In the ED, patient states that she has felt the lowest that she has ever felt before, including past SI attempts and episodes. - History Of Current Complaint Chief Complaint: EDMentalHealth Time Seen by Provider: 11/13/17 02:20 Hx Obtained From: Patient Hx Last Menstrual Period: 1 month ago, unsure of date Onset/Duration: Lasting Weeks, Still Present Timing: Constant Severity Currently: Severe Character: Depressed Has Suicidal: Reports: Thoughts, With A Plan, Has Prior Attempt(s) - Allergies/Home Medications Allergies/Adverse Reactions: Allergies Allergy/AdvReac Type Severity Reaction Status Date / Time latex Allergy Rash Verified 11/03/17 18:01 milk Allergy GI Upset Verified 11/13/17 08:06 Perfume Allergy Difficulty Verified 11/03/17 18:01 Breathing/Wheezing Home Medications: Home Medications Testosterone 1 dose INJ WEEKLY 11/13/17 [History Confirmed 11/13/17] PMH/Surg Hx/FS Hx/Imm Hx Previously Healthy: No Endocrine/Hematology History: Denies: Hx Anticoagulant Therapy, Hx Diabetes, Hx Thyroid Disease Cardiovascular History: Denies: Hx Congestive Heart Failure, Hx Hypertension Respiratory History: Reports: Hx Asthma, Hx Seasonal Allergies Denies: Hx Chronic Obstructive Pulmonary Disease (COPD) GI History: Reports: Hx Gastroesophageal Reflux Disease Denies: Hx Ulcer History: Reports: Other Problems/Disorders - Chronic UTI Denies: Hx Renal Disease Sensory History: Denies: Hx Contacts or Glasses, Hx Hearing Aid Opthamlomology History: Denies: Hx Contacts or Glasses Psychiatric History: Reports: Hx Anxiety, Hx Eating Disorder, Hx Depression, Hx Inpatient Treatment, Hx Community Mental Health Tx, Hx Suicide Attempt - past attempts, Other Psychiatric Issues/Disorders - Borderline personality Denies: Hx Attention Deficit Hyperactivity Disorder, Hx Panic Disorder, Hx Post Traumatic Stress Disorder, Hx Schizophrenia, Hx Bipolar Disorder, Hx of Violent Episodes Against Others, Hx Substance Abuse Infectious Disease History: No Infectious Disease History: Denies: Hx Clostridium Difficile, Hx Hepatitis, Hx Human Immunodeficiency Virus (HIV), Hx of Known/Suspected MRSA, Hx Shingles, Hx Tuberculosis, Hx Known/ Suspected VRE, Hx Known/Suspected VRSA, History Other Infectious Disease, Traveled Outside the [place] in Last 30 Days - Family History Known Family History: Positive: Diabetes Negative: Cardiac Disease, Hypertension Family History: Family history of SLE, multiple sclerosis, temporal lobe epilepsy, Graves' disease, and trigeminal neuralgia in mother in addition to borderline personality disorder. Maternal grandmother suffers from depression, chronic fatigue syndrome, and Marvin's disease. - Social History Alcohol Use: Rare Alcohol Amount: 4-5 x week, enought to get drunk. last drink yesterday. Hx Substance Use: Yes Substance Use Type: Reports: Marijuana Substance Use Comment - Amount & Last Used: pt reports using marijuana "occassionally" Hx Tobacco Use: Yes Smoking Status (MU): Heavy Every Day Tobacco Smoker Type: Cigarettes Amount Used/How Often: 1/2 pack per day Length of Time of Smoking/Using Tobacco: few years Have You Smoked in the Last Year: Yes Review of Systems Negative: Fever Positive: Depressed, Other - SI with plan All Other Systems Reviewed And Are Negative: Yes Physical Exam - Summary Physical Exam Summary: Appearance: Well-appearing, Well-nourished, lying in bed comfortably Skin: Warm, dry, no obvious rash Eyes: sclera anicteric, no conjunctival pallor ENT: mucous membranes moist, pharynx appears normal Neck: Supple, nontender Respiratory: Clear to auscultation, no signs of respiratory distress Cardiovascular: Normal S1, S2. No murmurs. Normal distal pulses in tibial and radial bilaterally. Abdomen: Soft, nontender, normal active bowel sounds present Musculoskeletal: Normal, Strength/ROM Intact Neurological: A&Ox3, awake and alert, mentation is normal, speech is fluent and appropriate Psychiatric: affect is normal, does not appear anxious or depressed Triage Information Reviewed: Yes Vital Signs On Initial Exam: Initial Vitals Temp Pulse Resp BP Pulse Ox 98.6 F 70 18 121/74 98 11/13/17 02:09 11/13/17 02:09 11/13/17 02:09 11/13/17 02:09 11/13/17 02:09 Vital Signs Reviewed: Yes Diagnostics - Vital Signs Vital Signs Temp Pulse Resp BP Pulse Ox 11/13/17 02:09 98.6 F 70 18 121/74 98 - Laboratory Result Diagrams: 11/13/17 03:45 11/13/17 03:45 Lab Statement: Any lab studies that have been ordered have been reviewed, and results considered in the medical decision making process. Course/Dx - Course Assessment/Plan: This patient is a 22 year old female BIBA to [facility] with a chief complaint of SI. Bloodwork Obtained. Urinalysis Obtained. Test results with no significant abnormalities. In the ED course the patient was given Acetaminophen 650 mg PO, Nicotine mouth piece INH, Nicotine inhaler 10mg INH. Patient will be signed out to Dr. Steward at end of shift, pending MHE. - Differential Dx/Clinical Impression Provider Diagnosis: Suicidal ideation, Borderline personality disorder Discharge - Sign-Out/Discharge Documenting (check all that apply): Sign-Out Patient Signing out patient TO: Bethany Steward Receiving patient FROM: Kiel Liu - Discharge Plan Referrals: Stefania Crowder MD [Primary Care Provider] - - Attestation Statements Document Initiated by Antonio: Yes Documenting Scribe: Sylvie Burgess Provider For Whom Antonio is Documenting (Include Credential): Kiel Liu MD Scribe Attestation: Sylvie Wang scribed for Kiel Liu MD on 11/14/17 at 0511. Scribe Documentation Reviewed: Yes Provider Attestation: The documentation as recorded by the Sylvie morley accurately reflects the service I personally performed and the decisions made by me, Kiel Liu MD
[2017-11-13] MEDS ORDERED: Mouth Piece, Nicotine* 1 EACH CARTRIDGE ONE (02:59)
[2017-11-13] MEDS ORDERED: Nicotine Inhaler* 10 MG AMP ONE (02:59)
[2017-11-13] MEDS ORDERED: Acetaminophen TAB* 325 MG ONE (03:07)
[2017-11-13] MEDS ORDERED: Mouth Piece, Nicotine* 1 EACH CARTRIDGE INH ONE (03:25)
[2017-11-13] MEDS ORDERED: Mouth Piece, Nicotine* 1 EACH CARTRIDGE INH PRN (03:25)
[2017-11-13] MEDS ORDERED: Nicotine Inhaler* 10 MG AMP INH PRN (03:25)
[2017-11-13] MEDS: Acetaminophen TAB* 325 MG PO ONE ×2 (03:35→08:05)
[2017-11-13 03:58] LABS: ABS Basophils 0.1 10^3/ul (0-0.2); ABS Eosinophils 0 10^3/ul (0-0.6); ABS Lymphocytes 2.6 10^3/ul (1.0-4.8); ABS Monocytes 0.6 10^3/ul (0-0.8); ABS Nucleated RBC 0 10^3/ul; Eosinophil % 0.4 % (0-6); Hematocrit 41 % (35-47); Hemoglobin 14.1 g/dl (12.0-16.0); Lymphocyte % 28.1 % (25-47); Mean Corpuscular HGB Conc 35 g/dl (31-36); Mean Corpuscular Hemoglobin 31 pg (27-31); Mean Corpuscular Volume 88 fL (80-97); Mean Platelet Volume 8.9 um3 (7.4-10.4); Nucleated Red Blood Cells % 0; Platelet Count 286 10^3/ul (150-450); Red Blood Count 4.61 10^6/ul (4.00-5.40); Red Cell Distribution Width 14 % (10.5-15); White Blood Count 9.2 10^3/ul (3.5-10.8)
[2017-11-13 04:03] LABS: Urine Appearance Cloudy; Urine Blood 1+ (Negative); Urine Color Yellow; Urine Ketones Negative (Negative); Urine Protein Negative (Negative); Urine Red Blood Cell Trace(0-2/hpf) (Absent); Urine Specific Gravity 1.009 (1.010-1.030); Urine Urobilinogen Negative (Negative); Urine White Blood Cell 3+(>20/hpf) (Absent)
[2017-11-13 04:17] LABS: EGFR Non-African American 89.3 (>60)
--- NOTE | 2017-11-13 08:07 | PN ---
ED Flex Patient Progress Note Subjective: This is a 22 year-old Female transitioning to Male who goes by "Ronny" and is pending psychiatric evaluation secondary to SI w/ plan. Admits to previous attempts . He reports he gets OCASIO's and chest discomfort at times d/t binding - would like acetaminophen. Assessed U/A which appears potentially positive for UTI - pt denies sx however admits he is prone to UTI's. Additionally, he was on testosterone injections weekly through [facility] however since switching insurance, he has not checked back to see if this is covered. Has not used testosterone in "months" as a result. If at all possible, he would like to restart testosterone injections while here in the hospital. Denies any side effects or issues with this in the past. Objective: Vitals: Most recent vital signs documented below. General NAD, Alert and oriented x3. Heart: S1/S2, rrr Lungs: CTA, BREATHING EASILY SKIN: clear, warm, dry, well perfused STAN: moving w/o difficulty NEURO: NC II-XII grossly intact AB: +BS, soft PSYCH: appropriate mood Laboratory: Current laboratory results documented below. Assessment: 1) SI w/ plan 2) Abnormal U/A 3) OCASIO (chronic, intermittent) 4) Transitioning female to male 5) Nicotine dependence Plan: 1) Pending psychiatric evaluation. Will follow up daily . 2) Pt would like to wait for cultures to return in 2 days before starting an antibiotic as he's been on so many antibiotics and doesn't want to take them if he doesn't need them. I'm okay with this plan as patient is a symptomatic at this time. 3) Will order acetaminophen 650 mg every 6 hours when necessary headache - please notify medical staff patient reports a different headache or different pain symptoms 4) Will not initiate here in the ED and will discuss with mental health team. May be appropriate in the right setting however monitoring is imperative as this may contribute to worsening of mental health issues. Will defer to psychiatrist for decision to restart or not. Patient aware plan. 5) Nicotrol inhaler already order Vital Signs Temp Pulse Resp BP Pulse Ox 98.1 F 76 14 121/59 100 11/13/17 07:48 11/13/17 07:48 11/13/17 07:48 11/13/17 07:48 11/13/17 07:48 Lab Results - Entire Visit 11/13/17 11/13/17 11/13/17 03:45 03:45 03:45 WBC RBC Hgb Hct MCV MCH MCHC RDW Plt Count MPV Neut % (Auto) Lymph % (Auto) [place] % (Auto) Eos % (Auto) Baso % (Auto) Absolute Neuts (auto) Absolute Lymphs (auto) Absolute Monos (auto) Absolute Eos (auto) Absolute Basos (auto) Absolute Nucleated RBC Nucleated RBC % Sodium 140 Potassium 3.7 Chloride 104 Carbon Dioxide 26 Anion Gap 10 BUN 12 Creatinine 0.81 Est GFR ( Amer) 108.0 Est GFR (Non-Af Amer) 89.3 BUN/Creatinine Ratio 14.8 Glucose 97 Calcium 9.3 Total Bilirubin 0.20 AST 17 ALT 10 Alkaline Phosphatase 103 Total Protein 7.4 Albumin 4.4 Globulin 3.0 Albumin/Globulin Ratio 1.5 TSH 0.85 Beta HCG, Quant < 0.60 Urine Color Yellow Urine Appearance Cloudy Urine pH 5.0 Ur Specific [place] 1.009 L Urine Protein Negative Urine Ketones Negative Urine Blood 1+ A Urine Nitrate Negative Urine Bilirubin Negative Urine Urobilinogen Negative Ur Leukocyte Esterase 3+ A Urine WBC (Auto) 3+(>20/hpf) A Urine RBC (Auto) Trace(0-2/hpf) Ur Squamous Epith Cells Present A Amorphous Crystals Present A Urine Bacteria 1+ A Urine Glucose Negative Salicylates < 2.50 Urine Opiates Screen None detected Acetaminophen < 15 Ur Barbiturates Screen None detected Ur Phencyclidine Scrn None detected Ur Amphetamines Screen None detected U Benzodiazepines Scrn None detected Urine Cocaine Screen None detected U Cannabinoids Screen None detected Serum Alcohol 95 H 11/13/17 03:45 WBC 9.2 RBC 4.61 Hgb 14.1 Hct 41 MCV 88 MCH 31 MCHC 35 RDW 14 Plt Count 286 MPV 8.9 Neut % (Auto) 64.7 Lymph % (Auto) 28.1 [place] % (Auto) 6.2 Eos % (Auto) 0.4 Baso % (Auto) 0.6 Absolute Neuts (auto) 6.0 Absolute Lymphs (auto) 2.6 Absolute Monos (auto) 0.6 Absolute Eos (auto) 0 Absolute Basos (auto) 0.1 Absolute Nucleated RBC 0 Nucleated RBC % 0 Sodium Potassium Chloride Carbon Dioxide Anion Gap BUN Creatinine Est GFR ( Amer) Est GFR (Non-Af Amer) BUN/Creatinine Ratio Glucose Calcium Total Bilirubin AST ALT Alkaline Phosphatase Total Protein Albumin Globulin Albumin/Globulin Ratio TSH Beta HCG, Quant Urine Color Urine Appearance Urine pH Ur Specific [place] Urine Protein Urine Ketones Urine Blood Urine Nitrate Urine Bilirubin Urine Urobilinogen Ur Leukocyte Esterase Urine WBC (Auto) Urine RBC (Auto) Ur Squamous Epith Cells Amorphous Crystals Urine Bacteria Urine Glucose Salicylates Urine Opiates Screen Acetaminophen Ur Barbiturates Screen Ur Phencyclidine Scrn Ur Amphetamines Screen U Benzodiazepines Scrn Urine Cocaine Screen U Cannabinoids Screen Serum Alcohol
--- NOTE | 2017-11-13 09:55 | PN ---
Progress Note - Progress Note Date of Service: 11/13/17 Note: SIGN-OUT FROM DR. LIU AT SHIFT CHANGE PENDING MHE AND DISPOSITION. 1112: ED provider is at bedside Pt is a 22 y/o F presenting to [facility] with SI. Pt is asleep upon first meeting. Pt is concerned where she will be transferred, and is uncomfortable being transferred to another facility. She states having "issues" with other facilities other than [facility]. Denies HI. 1718: ED provider is at bedside Pt is escalating. Pt is demanding to call her boyfriend. COT: Received pt from Dr. Liu at sign-out. Pt has been dispo for transfer, awaiting a location. Pt will be signed out to Dr. Liu at shift change pending pt transfer. DX: DISPO: PT WILL BE SIGNED-OUT TO DR. LIU AT SHIFT CHANGE PENDING PT TRANSFER. This is scribe, Manjitg Dakota, documenting for attending Dr. Bethany Steward MD
--- NOTE | 2017-11-13 16:57 | PN ---
Progress Note - Progress Note Date of Service: 11/13/17 Note: Saw patient on bed side. She is here for suicidal ideation and specific plans in the context of psychosocial stress and continues to verbalize SI. Frustrated over a plan to transfer to a different facility due to not having beds here on [facility]. Plan is to continue to find a bed in other hospital.
--- NOTE | 2017-11-13 19:35 | ED ---
Progress - Progress Note Progress Note: Pt was signed out by Dr. Steward to Dr. Liu. The patient will be transferred to [facility] Course/Dx - Diagnoses Provider Diagnoses: Suicidal ideation, Borderline personality disorder Discharge - Sign-Out/Discharge Documenting (check all that apply): Patient Departure - transfer Signing out patient TO: Kiel Liu Receiving patient FROM: Bethany Steward - Discharge Plan Referrals: Stefania Crowder MD [Primary Care Provider] - - Attestation Statements Document Initiated by Scribe: Yes Documenting Scribe: Capo Lyle Provider For Whom Scribe is Documenting (Include Credential): Kiel Liu MD Scribe Attestation: Capo Wang, sabineibed for Kiel Liu MD on 11/14/17 at 0622.
[2017-11-14] MEDS ORDERED: ARIPiprazole TAB* 5 MG PO ONE (02:34)
[2017-11-14] MEDS ORDERED: traZODone TAB* 50 MG TAB PO ONE (02:35)
[2017-11-14 07:59] VITALS: BP 122/69
[2017-11-14] MEDS ORDERED: Lurasidone(*) 40 MG TAB PO ONE (17:00)
== END 2017-11-14 08:17 ==
LOC: ED 01:53
DX: R45.851 Suicidal ideations (principal); F60.3 Borderline personality disorder; F17.210 Nicotine dependence, cigarettes, uncomplicated
CPT/HCPCS: 36415; 80053; 80307; 80320; 80329; 81003; 81015; 84443; 84702; 85025; 87086; 93005; 99285; A9270-GY; G0480

== ENCOUNTER 2017-11-23 18:17 | Emergency (ER) | payer MEDICAID ==
[2017-11-23 18:31] VITALS: BP 111/60
[2017-11-23] MEDS ORDERED: Penicillin VK TAB* 250 MG PO ONE ×2 (18:54)
--- NOTE | 2017-11-23 18:56 | UC ---
Dental HPI - HPI Summary HPI Summary: The patient is a 23-year-old female with chronic left upper dental pain. The past 2 days the pain has been markedly worse. She takes some Advil for pain. He has had no fever. She denies any facial swelling. She has no history of diabetes or heart murmur. - History of Current Complaint Chief Complaint: UCDentalProblem Stated Complaint: TOOTH PAIN Time Seen by Provider: 11/23/17 18:41 Hx Obtained From: Patient Hx Last Menstrual Period: on testosterone Onset/Duration: Gradual Onset, Lasting Weeks, Worse Since - x 2D Severity: Severe Pain Intensity: 8 - declines analgesic Pain Scale Used: 0-10 Numeric Aggravating Factor(s): Chewing Alleviating Factor(s): OTC Meds - Allergies/Home Medications Allergies/Adverse Reactions: Allergies Allergy/AdvReac Type Severity Reaction Status Date / Time latex Allergy Rash Verified 11/23/17 18:31 milk Allergy GI Upset Verified 11/23/17 18:31 Perfume Allergy Difficulty Verified 11/23/17 18:31 Breathing/Wheezing PMH/Surg Hx/FS Hx/Imm Hx Previously Healthy: Yes Psychological History: Anxiety, Depression Other History Of: Negative For: HIV, Hepatitis B, Hepatitis C, Anticoagulant Therapy - Surgical History Surgical History: None - Family History Known Family History: Positive: Diabetes Negative: Cardiac Disease, Hypertension Family History: Family history of SLE, multiple sclerosis, temporal lobe epilepsy, Graves' disease, and trigeminal neuralgia in mother in addition to borderline personality disorder. Maternal grandmother suffers from depression, chronic fatigue syndrome, and Marvin's disease. - Social History Alcohol Use: Daily Alcohol Amount: 4-5 x week, enought to get drunk. last drink yesterday. Substance Use Type: Marijuana Substance Use Comment - Amount & Last Used: pt reports using marijuana "occasionally" Smoking Status (MU): Heavy Every Day Tobacco Smoker Type: Cigarettes Amount Used/How Often: 1/2 pack per day Length of Time of Smoking/Using Tobacco: few years Have You Smoked in the Last Year: Yes Household Exposure Type: Cigarettes - Immunization History Most Recent Influenza Vaccination: 2016 Most Recent Tetanus Shot: UTD Most Recent Pneumonia Vaccination: unknown Vaccination Up to Date: Yes Review of Systems Constitutional: Negative Skin: Negative Eyes: Negative ENT: Dental Pain Respiratory: Negative Cardiovascular: Negative Gastrointestinal: Negative Genitourinary: Negative Motor: Negative Neurovascular: Negative Musculoskeletal: Negative Neurological: Negative Psychological: Negative Is Patient Immunocompromised?: No All Other Systems Reviewed And Are Negative: Yes Physical Exam Triage Information Reviewed: Yes Appearance: Well-Appearing, No Pain Distress, Well-Nourished Vital Signs: Initial Vital Signs Temp 98.4 F 11/23/17 18:22 Pulse 83 11/23/17 18:22 Resp 16 11/23/17 18:22 BP 111/60 11/23/17 18:22 Pulse Ox 100 11/23/17 18:22 Vital Signs Reviewed: Yes ENT Exam: Normal Dental: Positive: Percussion Tenderness @ Neck: Positive: Supple, Nontender, No Lymphadenopathy Respiratory: Positive: Lungs clear, Normal breath sounds, No respiratory distress, No accessory muscle use Cardiovascular: Positive: RRR, No Murmur Musculoskeletal: Positive: ROM Intact, No Edema Neurological: Positive: Alert Psychological Exam: Normal Skin Exam: Normal Dental Complaint Course/Dx - Differential Dx/Diagnosis Provider Diagnoses: dentalgia, ?apical abscess Discharge - Sign-Out/Discharge Documenting (check all that apply): Patient Departure All imaging exams completed and their final reports reviewed: No Studies - Discharge Plan Condition: Stable Disposition: HOME Prescriptions: Penicillin VK 500 MG TAB(NF) [Penicillin VK 500 mg Tab] 500 mg PO QID #28 tab Patient Education Materials: Toothache (ED) Referrals: No Primary Care Phys,NOPCP [Primary Care Provider] - Additional Instructions: recheck in 48-72 hours if not better - Billing Disposition and Condition Condition: STABLE Disposition: Home Images Dental: 1 - tender
== END 2017-11-23 19:28 | disposition home or self-care (01) ==
LOC: UCEAST 18:17
DX: K08.89 Other specified disorders of teeth and supporting structures (principal); F17.210 Nicotine dependence, cigarettes, uncomplicated; Z91.040 Latex allergy status; Z91.011 Allergy to milk products; Z91.048 Other nonmedicinal substance allergy status
CPT/HCPCS: 99212; A9270-GY; G0463

== ENCOUNTER 2021-02-03 19:22 | Inpatient (IN) ==
[2021-02-03 22:01] LABS: ABS Lymphocytes 2.6 10^3/ul (1.0-4.8); ABS Monocytes 0.9 10^3/ul (0-0.8); ABS Neutrophils 8.5 10^3/ul (1.5-7.7); Eosinophil % 0.3 %; Hematocrit 39 % (35-47); Hemoglobin 13.6 g/dL (12.0-16.0); Lymphocyte % 21.5 %; Mean Corpuscular HGB Conc 35 g/dL (31-36); Mean Corpuscular Hemoglobin 32 pg (27-31); Mean Corpuscular Volume 90 fL (80-97); Mean Platelet Volume 8.9 fL (7.4-10.4); Nucleated Red Blood Cells % 0.1; Platelet Count 272 10^3/uL (150-450); Red Cell Distribution Width 13 % (10-15)
[2021-02-03 22:16] LABS: ALT 15 U/L (7-52); AST 19 U/L (13-39); Albumin 4.2 g/dL (3.2-5.2); Albumin/Globulin Ratio 1.4 (1-3); Alkaline Phosphatase 91 U/L (35-149); Anion Gap 12 mmol/L (2-11); Blood Urea Nitrogen 13 mg/dL (6-24); CO2 Carbon Dioxide 23 mmol/L (22-32); Calcium 9.2 mg/dL (8.6-10.3); Chloride 104 mmol/L (101-111); Glucose 91 mg/dL (70-100); Potassium 3.2 mmol/L (3.5-5.0); Sodium 139 mmol/L (135-145); Total Protein 7.2 g/dL (6.4-8.9); eGFR CKD-EPI 99.5 (>60)
[2021-02-03 22:17] LABS: Acetaminophen < 15 mcg/mL; Alcohol, S < 13 mg/dL (<13); Salicylate < 2.50 mg/dL (<30)
[2021-02-03 22:33] LABS: TSH Ultra Thyroid Stim Horm 2.31 mcIU/mL (0.34-5.60)
[2021-02-04] MEDS ORDERED: Al Hydrox/Mg Hydrox/Simet LIQ 30 ML UDC PO PRN (04:49)
[2021-02-04] MEDS: Vitamin THERAPEUTIC TAB PO SCH (08:58)
[2021-02-04] MEDS: Nicotine PATCH 21 MG/24 HR PATCH TRANSDERM SCH (10:59)
[2021-02-04] MEDS: Nicotine GUM 2MG FRUIT FLAVOR PO PRN ×2 (12:59→17:00)
[2021-02-05] MEDS: Vitamin THERAPEUTIC TAB PO SCH (07:48)
[2021-02-05] MEDS: Nicotine PATCH 21 MG/24 HR PATCH TRANSDERM SCH (07:48)
[2021-02-05 08:11] LABS: Albumin/Globulin Ratio 1.4 (1-3); Globulin 2.9 g/dL (2-4); HDL Cholesterol 44.4 mg/dL; Potassium 3.4 mmol/L (3.5-5.0); Total Bilirubin 0.8 mg/dL (0.2-1.0); Total Protein 6.9 g/dL (6.4-8.9); eGFR CKD-EPI 103.9 (>60)
[2021-02-05] MEDS: Nicotine GUM 2MG FRUIT FLAVOR PO PRN ×2 (08:31→12:39)
[2021-02-06] MEDS: Vitamin THERAPEUTIC TAB PO SCH (08:22)
[2021-02-06] MEDS: Nicotine PATCH 21 MG/24 HR PATCH TRANSDERM SCH (08:23)
[2021-02-06] MEDS: Nicotine GUM 2MG FRUIT FLAVOR PO PRN (15:00)
[2021-02-07] MEDS: Vitamin THERAPEUTIC TAB PO SCH (08:03)
[2021-02-07] MEDS: Nicotine PATCH 21 MG/24 HR PATCH TRANSDERM SCH (08:03)
[2021-02-07] MEDS: Nicotine GUM 2MG FRUIT FLAVOR PO PRN ×3 (08:06→14:54)
[2021-02-07 08:18] VITALS: BP 121/72
[2021-02-07] MEDS ORDERED: Venlafaxine XR 75 mg PO SCH (09:00)
== END 2021-02-07 15:00 | disposition home or self-care (01) | DRG 753 ==
LOC: ED 19:22 → BSU 02-04 02:34
PROVIDERS: ADMIT Psychiatry & Neurology Psychiatry; ATTEND Psychiatry & Neurology Psychiatry